=== PATIENT | male | born 1965 | race Caucasian/White ===

== ENCOUNTER → 2021-03-19 15:21 | Outpatient (CLI) | payer OTHER, SELFPAY ==
--- NOTE | 2021-03-19 15:32 | MRI_ITS ---
STUDY: MRI BRAIN WITH AND WITHOUT CONTRAST (ATTENTION INTERNAL AUDITORY CANALS - I.A.C.''s) REASON FOR EXAM: Male, 55 years old. VERTIGO, ASYMMETRIC HEARING LOSS, tinnitus TECHNIQUE: Standardized multiplanar fat and water weighted pulse sequences were obtained. IV 15ml Dotarem was administered for the contrast portion of the examination. COMPARISON: None. FINDINGS: Normal bilateral temporal bones. Normal bilateral internal auditory canals. There is no demonstrated intracanalicular or cisternal vestibular schwannoma (acoustic neuroma). There is no enhancement of the bilateral VIIth or VIIIth cranial nerves. Normal bilateral cochlea, vestibules and semicircular canals. Normal size of the ventricles and extra-axial spaces for the patient''s age. Normal white matter tracts of the supratentorial brain. Normal bilateral basal ganglia. Normal thalami. Normal flow voids within the major intracranial circulation suggesting patency by spin echo criteria. Normal venous enhancement. There is no enhancing intra-axial or extra-axial abnormality. There is no extra-axial fluid accumulation. Normal sella turcica, pituitary gland, infundibular stalk, optic chiasm and hypothalamus. Normal tectal plate and pineal gland. Normal midbrain, jaison and medulla. Normal cerebellum. Normal basal cisterns. No demonstrated orbital abnormality, within the constraints of a routine brain study. Minor mucosal thickening of the ethmoid sinuses and complex mucous retention cyst or polyp in the left sphenoid sinus Normal calvarium and skull base. Normal visualized soft tissue structures. Normal visualized upper cervical spine. MRI/Brain W/WO Contrast IMPRESSION: Normal unenhanced and enhanced MRI of the bilateral internal auditory canals (I.A.C''s). Incidental finding of bilateral ethmoid and left sphenoid sinus disease Electronically Signed: Dwayne Ayala MD at 16:40 EDT , Service support ,
== END ==
PROVIDERS: PCP Family Medicine; Visit Provider Otolaryngology
DX: R42 Dizziness and giddiness (principal); H91.90 Unspecified hearing loss, unspecified ear
CPT/HCPCS: 70553; A9575

== ENCOUNTER → 2024-08-03 | Outpatient (CLI) | payer OTHER, SELFPAY ==
[2024-08-03 17:18] LABS: Absolute Lymphocyte Count 3.61 X10^3/uL (0.83-4.51); Absolute Neutrophil Count 4.6 X10^3/uL (2.0-7.7); Basophil# 0.06 X10^3/uL; Basophil% 0.6 % (0-1); Eosinophil# 0.18 X10^3/uL; Eosinophils% 1.9 % (0-5); Hematocrit 47.1 % (40-54); Hemoglobin 16.2 g/dL (13.0-16.5); Lymphocyte # 3.61 X10^3/ul (0.83-4.51); Lymphocyte % 38.6 % (19-41); Mean Corp Hgb Conc 34.4 g/dL (32-36); Mean Corpuscular Hgb 30.9 pg (27.0-32.0); Mean Corpuscular Volume 89.7 fL (80-94); Mean Platelet Vol. 10.1 fl (6.2-12.0); Monocyte# 0.85 X10^3/uL; Monocyte% 9.1 % (0-10); NRBC Flagged by Analyzer 0 % (0-5); Neutrophil # 4.62 X10^3/uL (2.7-7.7); Neutrophil % 49.5 % (47-70); Platelet Count 228 K/mm3 (150-450); RBC Distribution Width CV 12.9 % (11.6-14.6); RBC Distribution Width SD 42.5 fl (35.1-43.9); Red Blood Count 5.25 M/mm3 (4.6-6.2); White Blood Count 9.4 K/mm3 (4.4-11.0)
[2024-08-03 19:20] LABS: ALB/GLOB Ratio 1.8 RATIO (0.9-2.4); AST(SGOT) 26 U/L (<=37); Alanine Aminotransfer ALT/SGPT 33 U/L (<=46); Albumin, Serum 4.7 g/dL (3.4-4.8); Alkaline Phosphatase 87 U/L (40-129); Anion Gap 11 (5-15); BUN 14 mg/dL (4-19); BUN/Creat Ratio 15.6 RATIO (10-20); Calcium,Total 9.6 mg/dL (7.6-11.0); Carbon Dioxide 24.7 mmol/L (21.0-32.0); Chloride 102 mmol/L (98-108); Creatinine, Serum 0.87 mg/dL (0.70-1.20); EST Glomerular Filtration Rate 98 (>60); Globulin 2.6 g/dL (2.2-4.2); Glucose 104 mg/dL (70-99); PSA,Total - Annual Screen 1.33 ng/mL (0.02-4.00); Potassium 4.5 mmol/L (3.3-5.1); Protein, Total 7.3 g/dL (5.9-8.4); Sodium Level 138 mmol/L (133-145); Total Bilirubin 0.27 mg/dL (0.00-1.30)
[2024-08-03 19:33] LABS: Hepatitis C Antibody Nonreactive (Nonreactive)
== END | disposition home or self-care (01) ==
PROVIDERS: PCP Family Medicine Geriatric Medicine; Visit Provider Family Medicine Geriatric Medicine
DX: E11.65 Type 2 diabetes mellitus with hyperglycemia (principal); E78.5 Hyperlipidemia, unspecified; Z12.5 Encounter for screening for malignant neoplasm of prostate; Z13.89 Encounter for screening for other disorder
CPT/HCPCS: 36415; 80053; 83036; 84153; 84443; 85025; 86803; G0103

== ENCOUNTER → 2024-08-04 | Outpatient (CLI) | payer OTHER, SELFPAY ==
[2024-08-04 20:44] LABS: Microalbumin,Random Urine 37.7 mg/L (NO RANGE EST.); Microalbumin:Creatinine Ratio 202.7 mg/g CRE
== END | disposition home or self-care (01) ==
PROVIDERS: PCP Family Medicine Geriatric Medicine; Referring Provider Family Medicine Geriatric Medicine; Visit Provider Family Medicine Geriatric Medicine
DX: E11.65 Type 2 diabetes mellitus with hyperglycemia (principal); E78.5 Hyperlipidemia, unspecified; Z12.5 Encounter for screening for malignant neoplasm of prostate; Z13.89 Encounter for screening for other disorder
CPT/HCPCS: 82043; 82570

== ENCOUNTER → 2025-02-07 | Outpatient (CLI) | payer OTHER, SELFPAY ==
[2025-02-07 16:28] LABS: Hematocrit 43.8 % (40-54); Hemoglobin 15.3 g/dL (13.0-16.5); Immature Granulocytes Count 0.020 X10^3/uL (0.0-0.0); Mean Corp Hgb Conc 34.9 g/dL (32-36); Mean Corpuscular Volume 88.7 fL (80-94); Mean Platelet Vol. 10.0 fl (6.2-12.0); NRBC Flagged by Analyzer 0 % (0-5); Platelet Count 211 K/mm3 (150-450); RBC Distribution Width CV 12.9 % (11.6-14.6); RBC Distribution Width SD 42.1 fl (35.1-43.9); Red Blood Count 4.94 M/mm3 (4.6-6.2); White Blood Count 9.3 K/mm3 (4.4-11.0)
[2025-02-07 17:26] LABS: Cholesterol 130 mg/dL (<=200); Low Density Lipoprotein Calc. 46 mg/dL; Triglycerides 276 mg/dL; Very Low Density Lipoprotein 55 mg/dL (5-40); cholesterol:hdl ratio screen 4.48
[2025-02-07 17:30] LABS: AST(SGOT) 28 U/L (<=37); Alanine Aminotransfer ALT/SGPT 30 U/L (<=46); Albumin, Serum 4.3 g/dL (3.4-4.8); Alkaline Phosphatase 78 U/L (40-129); Anion Gap 12 (5-15); BUN 15 mg/dL (4-19); BUN/Creat Ratio 13.5 RATIO (10-20); Calcium,Total 8.9 mg/dL (7.6-11.0); Carbon Dioxide 23.8 mmol/L (21.0-32.0); Chloride 107 mmol/L (98-108); Globulin 2.4 g/dL (2.2-4.2); Glucose 96 mg/dL (70-99); Potassium 4.5 mmol/L (3.3-5.1)
[2025-02-08 00:22] LABS: Xtra Tube Kwok EXTRA TUBE
== END | disposition home or self-care (01) ==
LOC: POLAB3 16:19
PROVIDERS: PCP Family Medicine Geriatric Medicine; Visit Provider Family Medicine Geriatric Medicine
DX: E78.5 Hyperlipidemia, unspecified (principal); E11.65 Type 2 diabetes mellitus with hyperglycemia; R53.83 Other fatigue; E03.9 Hypothyroidism, unspecified
CPT/HCPCS: 36415; 80053; 80061; 83036; 84443; 85025

== ENCOUNTER → 2025-04-28 | Outpatient (CLI) | payer OTHER, SELFPAY ==
--- OUTSIDE RECORDS SUMMARY | 2025-04-28 07:21 | XMS RPT_ITS | CCD ---
Author Organization [facility] [employer] Care Team Providers Care Health And Social Care Teacher Name Role Phone SHAHIDA WALKER Unavailable Unavailable SHAHIDA WALKER Unavailable Unavailable Dwayne Mccullough MD Primary Care Provider Dwayne Mccullough MD Primary Care Provider TAMEKA GALVAN DO Attending Unavailable TAMEKA GALVAN DO Primary Care Unavailable TAMEKA GALVAN DO Admitting Unavailable Dwayne Mccullough MD Primary Care Provider Dwayne Mccullough MD Primary Care Provider [phone] Dr. Bairon Knapp MD, Chi Primary Care Provider Dr. Bairon Knapp MD, Chi Attending Provider Dr. Bairon Knapp MD, Chi Referring Provider Ximena Kaba PA-C Unavailable Dwayne Mccullough MD Primary Care Provider Ximena Kaba PA-C Unavailable Kasey Blackwell APRN.CNP Unavailable Ximena Kaba PA-C Unavailable [phone] CAITLIN SIERRA Referring Unavailable DWAYNE MCCULLOUGH Primary Care Unavailable DWAYNE MCCULLOUGH Primary Care Unavailable DWAYNE MCCULLOUGH Primary Care Unavailable DWAYNE MCCULLOUGH Primary Care Unavailable Ra LOPEZ, Dr. Bairon Ruiz Primary Care Physician Dr. Bairon Knapp MD, Chi Attending Physician Bairon Knapp Chi Attending Unavailable Ra, Bairon Chi Primary Care Unavailable Ra, Bairon Chi Primary Care Unavailable RaBairon Chi Attending Unavailable Ra, Bairon Chi Primary Care Unavailable Ra, Bairon Chi Referring Unavailable Ra, Bairon Chi Attending Unavailable Adrian, Anabell Attending Unavailable Bairon Knapp Chi Primary Care Unavailable Bairon Knapp Chi Referring Unavailable Allergies Allergy Classification Reported Allergen(s) Allergy Type Date of Onset Reaction(s) Facility Sulfonamides (antibiotic) (1 source) Sulfonamides (Antibiotic) Drug Allergy 5 Unknown [facility] Work Phone: (20 sources) Sulfonamides (Antibiotic); Translations: [SULFA (SULFONAMIDE ANTIBIOTICS)] Propensity to adverse reactions to drug (disorder) 5 Unknown [facility] Other [place] [facility] (1 source) Sulfonamides (Antibiotic) Drug allergy (disorder) [facility] Repository Medications Current Medications Medication Drug Class(es) Dates Sig (Normalized) Sig (Original) amoxicillin 875 mg / clavulanate 125 mg oral tablet (1 source) Penicillin-class Antibacterial Start: 03-14-2024 End: 03-21-2024 take 1 tablet by mouth twice daily amoxicillin-clav ulanate potassium (AUGMENTIN) 875-125 mg per tablet Take 1 tablet by mouth two times a day for 7 days. 14 tablet 03/14/2024 03/21/2024 Active ascorbic acid 1000 mg oral tablet (8 sources) Vitamin C Start: 08-06-2023 take 1 tablet by mouth once daily Ascorbic Acid (VITAMIN C) 1,000 mg tablet Take 1 tablet by mouth once daily. 08/06/2023 Active Comment on above: Take 1 tablet by ami th once daily. aspirin 81 mg delayed release oral tablet (19 sources) Platelet Aggregation Inhibitor, Nonsteroidal Anti-inflammatory Drug Start: 02-18-2021 take 1 tablet by mouth once daily Comment on above: Take 1 tablet by ami th once daily. cetirizine hydrochloride 10 mg oral capsule (19 sources) Histamine-1 Receptor Antagonist Start: 10-13-2024 take 1 capsule by mouth once daily as needed Start: 02-27-2021 take 1 tablet by ami th once daily cetirizine (ZYRTEC) 10 mg tablet Take 1 tablet by mouth once daily. 30 tablet 02/27/2021 Active Comment on above: Take 1 tablet by ami th once daily. cholecalciferol 0.25 mg oral capsule (8 sources) Vitamin D Start: take 1 capsule by mouth once daily Cholecalciferol, Vitamin D3, 250 mcg (10,000 unit) cap Take 1 capsule by mouth once daily. 08/06/2023 Active Comment on above: Take 1 capsule by mo [facility] once daily. doxycycline monohydrate 100 mg oral capsule (2 sources) Tetracycline-cla ss Drug Start: 4 End: 4 take 1 capsule by mouth twice daily doxycycline monohydrate (MONODOX) 100 mg capsule Indications: Bacterial sinusitis Take 1 capsule by mouth two times a day for 5 days. 10 capsule 03/08/2024 03/13/2024 Active Start: 07-10-2023 End: 07-17-2023 take 1 tablet by mouth twice daily doxycycline (VIBRA-TABS) 100 mg tablet Take 1 tablet by mouth two times a day for 7 days. 14 tablet 0 07/10/2023 07/17/2023 Active Comment on above: Take 1 tablet by ami two times a day for 7 days. mv-mn/folic/lutein/her bal 293 (ALIVE MEN'S 50 PLUS MULTIVIT ORAL) (9 sources) take 1 tablet by mouth once daily mv-mn/folic/lutein/he rbal 293 (ALIVE MEN'S 50 PLUS MULTIVIT ORAL) Take by mouth. Take one tablet daily Active take 1 tablet by ami once daily mv-mn/folic/lutein/herbal 293 (ALIVE MEN 'S 50 PLUS MULTIVIT ORAL) Take by mouth. Take one tablet daily 0 Active Comment on above: Take by mouth. Take one tablet daily nystatin [id number] unt/ml oral suspension (1 source) Polyene Antifungal Start: 2 End: 2 nystatin (MYCOSTATIN) 100,000 unit/mL suspension Indications: Thrush Take 5 mL by mouth four times daily for 14 days. 1tsp swish in mouth for several minutes, then swallow (or expectorate) 4 times daily until gone. 280 mL 0 12/30/2021 01/13/2022 Active Comment on above: Take 5 mL by mouth f our times daily for 14 days. 1tsp swish in mouth for several minutes, then swallow (or expectorate) 4 times daily until gone. omega-3 fatty acids 1,000 mg cap (16 sources) Start: 3 take 2 capsules by mouth twice daily omega-3 fatty acids 1,000 mg cap Take 2 capsules by mouth twice daily. 07/02/2022 Active Start: 07-02-2022 take 2 capsules by m outh twice daily omega-3 fatty acids 1,000 mg cap Take 2 capsules by mouth twice daily. 0 07/02/2022 Active Start: 06-21-2018 take 2 capsules by m outh once daily omega-3 fatty acids 1,000 mg cap Take 2 capsules by mouth once daily. 0 06/21/2018 Active Comment on above: Take 2 capsules by m outh once daily. Take 2 capsules by m outh twice daily. Gruetli Laager-3 Fatty Acids 1,000 mg capsule (1 source) Start: 10-13-2024 take 1 capsule by mouth once daily omeprazole 20 mg delayed release oral capsule (13 sources) Proton Pump Inhibitor Start: 08-06-2023 take 1 capsule by mouth once daily Start: 02-18-2021 take 1 capsule by mo uth once daily before breakfast omeprazole (PRILOSEC) 20 mg capsule Take 1 capsule by mouth daily before breakfast. 1/2 hr before meal. 30 capsule 0 02/18/2021 Active Comment on above: Take 1 capsule by mo uth daily before breakfast. 1/2 hr before meal. perflutren lipid microspheres 1.3 mL in NaCl (PF) 0.9% 10 mL injection (DEFINITY) (4 sources) Start: 1 End: 3 perflutren lipid microspheres 1.3 mL in NaCl (PF) 0.9% 10 mL injection (DEFINITY) predniSONE 20 mg oral tablet (1 source) Start: 2 End: 2 take 2 tablets by mouth once daily predniSONE (DELTASONE) 20 mg tablet Take 2 tablets by mouth once daily for 5 days. 10 tablet 0 12/18/2021 12/23/2021 Active Comment on above: Take 2 tablets by mo uth once daily for 5 days. rosuvastatin calcium 10 mg oral tablet (18 sources) HMG-CoA Reductase Inhibitor Start: 5 take 5 mg by mouth once daily Start: 12-30-2021 take 0.5 tablet by m outh once daily at bedtime rosuvastatin (CRESTOR) 10 mg tablet Indications: Type 2 diabetes mellitus without complication, without long-term current use of insulin (HCC) Take 0.5 tablets by mouth daily at bedtime. 12/30/2021 Active Start: 04-02-2021 End: 12-30-2021 take 1 tablet by mouth once daily at bedtime rosuvastatin (CRESTOR) 10 mg tablet Indications: Type 2 diabetes mellitus without complication, without long-term current use of insulin (HCC) Take 1 tablet by mouth daily at bedtime. 0 04/02/2021 12/30/2021 Discontinued Comment on above: Take 1 tablet by ami th daily at bedtime. Take 0.5 tablets by mouth daily at bedtime. 125 ml sodium chloride 9 mg/ml prefilled syringe (4 sources) Start: 02-18-2021 End: 05-20-2022 sodium chloride 0.9 % (flush) 10 mL (BD POSIFLUSH) vitamin e 268 mg oral capsule (8 sources) Start: 08-06-2023 take 1 capsule by mouth once daily Vitamin E, dl, acetate, (VITAMIN E) 400 unit capsule Take 1 capsule by mouth once daily. 08/06/2023 Active Comment on above: Take 1 capsule by mo [facility] once daily. Completed/Discontinued Medications Medication Drug Class(es) Dates Sig (Normalized) Sig (Original) [id number] 200 actuat albuterol 0.09 mg/actuat metered dose inhaler (1 source) beta2-Adrenergic Agonist Start: 10-06-2024 End: 10-13-2024 Albuterol Sulfate (Ventolin Hfa) 90 mcg/actuation HFA aerosol inhaler Discontinued 2 NMA INHALATION Q4H as needed October 06, 2024 12:00am October 13, 2024 10:47am cyclobenzaprine hydrochloride 10 mg oral tablet (1 source) Muscle Relaxant Start: 10-06-2024 End: 10-13-2024 take 1 tablet by mouth at bedtime Cyclobenzaprine 10 mg tablet Discontinued 10 mg PO BEDTIME October 06, 2024 12:00am October 13, 2024 10:47am diphenhydrAMINE hydrochloride 25 mg oral capsule (8 sources) Histamine-1 Receptor Antagonist Start: 07-01-2021 End: 08-05-2023 take 1 capsule by mouth once daily at bedtime diphenhydrAMINE (BENADRYL) 25 mg capsule Take 1 capsule by mouth daily at bedtime. 0 07/01/2021 08/05/2023 Discontinued Comment on above: Take 1 capsule by va ut daily at bedtime. fluticasone propionate 0.05 mg/actuat metered dose nasal spray (4 sources) Corticosteroid Start: 02-27-2021 End: 12-30-2021 take 2 spray(s) by mouth once daily fluticasone (FLONASE) 50 mcg/actuation nasal spray Use 2 Sprays in each nostril once daily. Rinse mouth after use. 10 mL 0 02/27/2021 12/30/2021 Discontinued Comment on above: Use 2 Sprays in each nostril once daily. Rinse mouth after use. Fluticasone-Umeclidi n-Vilanter (1 source) Anticholinergic, Corticosteroid, beta2-Adrenergic Agonist Start: 10-06-2024 End: 10-13-2024 Fluticasone-Umeclid in-Vilanter (Trelegy Ellipta) 100-62.5-25 mcg blister with device Discontinued 1 NMA INHALATION daily October 06, 2024 12:00am October 13, 2024 10:47am guaiFENesin (1 source) Start: 10-06-2024 End: 10-13-2024 guaifenesin (Mucinex) Discontinued 0.5 {tbl} PO DAILY October 06, 2024 12:00am October 13, 2024 10:47am ibuprofen 200 mg oral tablet (1 source) Nonsteroidal Anti-inflammatory Drug Start: 10-06-2024 End: 10-13-2024 take 1 tablet by mouth every six hours as needed Ibuprofen 200 mg tablet Discontinued 200 mg PO EVERY 6 HOURS as needed October 06, 2024 12:00am October 13, 2024 10:47am 200 actuat ipratropium bromide 0.017 mg/actuat metered dose inhaler (1 source) Anticholinergic Start: 10-06-2024 End: 10-13-2024 Ipratropium Alder (Atrovent Hfa) 17 mcg/actuation HFA aerosol inhaler Discontinued 2 NMA INHALATION EVERY 6 HOURS as needed October 06, 2024 12:00am October 13, 2024 10:48am lamoTRIgine 25 mg oral tablet (1 source) Mood Stabilizer, Anti-epileptic Agent Start: 10-06-2024 End: 10-13-2024 take 1 tablet by mouth once daily Lamotrigine 25 mg tablet Discontinued 25 mg PO daily October 06, 2024 12:00am October 13, 2024 10:48am meclizine hydrochloride 25 mg oral tablet (5 sources) Antiemetic Start: 10-06-2024 End: 10-13-2024 take 1 tablet by mouth once daily as needed Meclizine 25 mg tablet Discontinued 25 mg PO daily as needed October 06, 2024 12:00am October 13, 2024 10:48am Start: 02-27-2021 End: 12-30-2021 take 1 tablet by mouth every six hours as needed meclizine (ANTIVERT) 12.5 mg tab Take 1 tablet by mouth every 6 hours as needed (dizziness). 12 tablet 0 02/27/2021 12/30/2021 Discontinued Comment on above: Take 1 tablet by ami th every 6 hours as needed (dizziness). ondansetron 4 mg disintegrating oral tablet (1 source) Serotonin-3 Receptor Antagonist Start: 10-07-19 End: 10-14-19 take 1 tablet by mouth every six hours Ondansetron 4 mg tablet,disintegratin g Discontinued 4 mg PO EVERY 6 HOURS October 06, 2024 12:00am October 13, 2024 10:48am Problems Active Problems Problem Classification Problem Date Documented Date Episodic/Chronic Diabetes mellitus with complications (3 sources) Hyperglycemia due to type 2 diabetes mellitus; Translations: [Type 2 diabetes mellitus with hyperglycemia] Onset: 08-12-2024 10-13-2024 Chronic Diabetes mellitus without complication (20 sources) Type 2 diabetes mellitus without complication; Translations: [Type 2 diabetes mellitus without complications] Onset: 02-18-2021 02-18-2021 Chronic Diabetes mellitus without complication (5 sources) Hyperglycemia; Translations: [Impaired fasting glucose] Onset: 05-24-2015 02-06-2017 Episodic Disorders of lipid metabolism (20 sources) Mixed hyperlipidemia; Translations: [Mixed hyperlipidemia] Onset: 05-22-2015 05-22-2015 Chronic Esophageal disorders (20 sources) Gastroesophageal reflux disease without esophagitis; Translations: [Gastro-esophageal reflux disease without esophagitis] Onset: 05-22-2015 05-22-2015 Chronic Essential hypertension (1 source) Essential (primary) hypertension; Translations: [Essential (primary) hypertension] Onset: 10-17-2024 Chronic Mycoses (1 source) Candidiasis of mouth; Translations: [Candidal stomatitis] Episodic Nutritional deficiencies (1 source) Vitamin D deficiency; Translations: [Vitamin D deficiency, unspecified] 10-13-2024 Chronic Osteoarthritis (18 sources) Osteoarthritis of finger joint; Translations: [Primary osteoarthritis, unspecified hand] Onset: 05-22-2015 05-13-2021 Chronic Other connective tissue disease (2 sources) Pain of left hand; Translations: [Pain in left hand] Episodic Other injuries and conditions due to external causes (3 sources) Foreign body in cornea, left eye, initial encounter; Translations: [Foreign body in cornea, left eye, initial encounter] Onset: 12-14-2021 Episodic Other lower respiratory disease (1 source) Lower respiratory tract infection; Translations: [Unspecified acute lower respiratory infection] 07-10-2023 Episodic Other lower respiratory disease (2 sources) Cough; Translations: [Subacute cough] 03-14-2024 Episodic Other male genital disorders (19 sources) Male erectile dysfunction, unspecified; Translations: [Impotence of organic origin] Onset: 09-18-2016 02-06-2017 Chronic Other skin disorders (1 source) Foot callus; Translations: [Corns and callosities] 08-05-2023 Episodic Other upper respiratory disease (18 sources) Allergic rhinitis due to pollen; Translations: [Allergic rhinitis due to pollen] Onset: 05-22-2015 05-22-2015 Chronic Other upper respiratory disease (1 source) Allergic rhinitis; Translations: [Allergic rhinitis, unspecified] 10-13-2024 Chronic Other upper respiratory infections (2 sources) Bacterial sinusitis; Translations: [Chronic sinusitis, unspecified] 03-08-2024 Chronic Poisoning by nonmedicinal substances (1 source) Bee sting; Translations: [Toxic effect of venom of bees, undetermined, sequela] Episodic Residual codes; unclassified (1 source) Sleep apnea; Translations: [Sleep apnea, unspecified] 10-13-2024 Chronic Residual codes; unclassified (19 sources) FH: premature coronary heart disease; Translations: [Family history of ischemic heart disease and other diseases of the circulatory system] Onset: 08-07-2017 08-07-2017 Episodic Residual codes; unclassified (10 sources) FH: Myocardial infarction; Translations: [Family history of ischemic heart disease and other diseases of the circulatory system] Onset: 05-22-2015 Resolved: 05-01-2017 05-13-2021 Episodic Residual codes; unclassified (1 source) Tobacco user; Translations: [Tobacco use] 10-13-2024 Episodic Substance-related disorders (20 sources) Smoker; Translations: [Nicotine dependence, unspecified, uncomplicated] Onset: 05-22-2015 05-13-2021 Chronic Thyroid disorders (17 sources) Subclinical hypothyroidism; Translations: [Other specified hypothyroidism] Onset: 12-30-2021 Chronic Unclassified (1 source) Subacute cough; Translations: [Subacute cough] Onset: 03-14-2024 Past or Other Problems Problem Classification Problem Date Documented Da te Episodic/Chronic Abdominal hernia (1 source) Bilateral inguinal hernia, without obstruction or gangrene, recurrent; Translations: [Bilateral inguinal hernia, without obstruction or gangrene, recurrent] Onset: 05-13-2017 Episodic Complications of surgical procedures or medical care (18 sources) Expected difficult tracheal intubation; Translations: [Failed or difficult intubation, initial encounter] Onset: 05-13-2017 05-13-2017 Episodic Heart valve disorders (1 source) Cardiac murmur, unspecified; Translations: [Cardiac murmur, unspecified] Onset: 10-17-2024 Episodic Immunizations and screening for infectious disease (3 sources) Vaccination needed; Translations: [Encounter for immunization] Onset: 11-09-2023 08-05-2023 Episodic Other hereditary and degenerative nervous system conditions (9 sources) Restless legs; Translations: [Restless legs syndrome] Onset: 05-28-2007 Resolved: 05-01-2017 05-01-2017 Chronic Other infections; including parasitic (12 sources) Personal history of other infectious and parasitic diseases; Translations: [History of 2019 novel coronavirus disease (COVID-19)] Onset: 07-02-2022 07-02-2022 Episodic Other inflammatory condition of skin (9 sources) Pruritus of skin; Translations: [Pruritus, unspecified] Onset: 05-28-2007 Resolved: 05-01-2017 05-01-2017 Episodic Other screening for suspected conditions (not mental disorders or infectious disease) (20 sources) Patient encounter status; Translations: [Encounter for screening for malignant neoplasm of colon] Onset: 02-06-2017 02-06-2017 Episodic Spondylosis; intervertebral disc disorders; other back problems (19 sources) Neck pain; Translations: [Cervicalgia] Onset: 05-07-2021 Episodic Results Test Name Value Interpretation Reference Range Facility Absolute lymphocyte countOrd ered By: Bairon Ra on 02-07-2025 Lymphocytes Auto (Unsp spec) [#/Vol] 3.50 10*3/uL 0.83-4.51 [facility] Absolute neutrophil countOrd ered By: Bairon Ra on 02-07-2025 Neutrophils (Bld) [#/Vol] 4.6 10*3/uL 2.0-7.7 [facility] Anion gap in Serum or Plasma Ordered By: Bairon Knapp on 02-07-2025 Anion gap [Moles/Vol] 12 mmol/L 5- [facility] Automated lymphocyte count a s percentage of total leukocytesOrdered By: Bairon Knapp on 02-07-2025 Lymphocytes/100 WBC Auto (Unsp spec) 37.5 % - [facility] BUN/creatinine ratioOrdered By: [facility] on 02-07-2025 Urea nitrogen/Creatinine [Mass ratio] 13.5 mg/mg 10- [facility] Basophil percentageOrdered B y: Bairon [place] on 02-07-2025 Basophils/100 WBC (Bld) 0.5 % 0-1 [facility] Bilirubin, totalOrdered By: Bairon Knapp on 02-07-2025 Bilirubin [Mass/Vol] 0.18 mg/dL 0.00-1.30 [facility] CBC W/Diff, Automatedon 01-17 Absolute Lymph 3.50 X10 3/uL Normal 0.83-4.51 [facility] Comment on above: Performed By: #### L [id number], L500.4100, L501.9985, L500.4050, L100.0100 #### [facility] [address] [place], [place], [id number] Absolute Neut 4.6 X10 3/uL Normal 2.0-7.7 [facility] Comment on above: Performed By: #### L [id number], L500.4100, L501.9985, L500.4050, L100.0100 #### [facility] [address] [place], [address] Basophils/100 WBC (Bld) 0.5 % Normal 0-1 [facility] Comment on above: Performed By: #### L [id number], L500.4100, L501.9985, L500.4050, L100.0100 #### [facility] [address] [place], [address] Eosinophils/100 WBC (Bld) 2.5 % Normal 0-5 [facility] Comment on above: Performed By: #### L [id number], L500.4100, L501.9985, L500.4050, L100.0100 #### [facility] [address] [place], [address] Erythrocyte distribution width (RBC) [Ratio] 12.9 % Normal 11.6-14.6 [facility] Comment on above: Performed By: #### L [id number], L500.4100, L501.9985, L500.4050, L100.0100 #### [facility] [address] [place], [address] Hematocrit (Bld) [Volume fraction] 43.8 % Normal 40-54 [facility] Comment on above: Performed By: #### L [id number], L500.4100, L501.9985, L500.4050, L100.0100 #### [facility] [address] [place], [address] Hemoglobin (Bld) [Mass/Vol] 15.3 g/dL Normal 13.0-16.5 [facility] Comment on above: Performed By: #### L [id number], L500.4100, L501.9985, L500.4050, L100.0100 #### [facility] [address] [place], [address] IG% 0.200 Normal 0.0-0.9 [facility] Comment on above: Result Comment: IG% - Immature Granulocytes (promyelocytes, myelocytes and metamyelocytes) > 1% indicates that a LEFT SHIFT is Present. Performed By: #### L [id number], L500.4100, L501.9985, L500.4050, L100.0100 #### [facility] [address] [place], [address] Lymphocytes/100 WBC (Bld) 37.5 % Normal 19-41 [facility] Comment on above: Performed By: #### L [id number], L500.4100, L501.9985, L500.4050, L100.0100 #### [facility] [address] [place], [address] MCH (RBC) [Entitic mass] 31.0 pg Normal 27.0-32.0 [facility] Comment on above: Performed By: #### L [id number], L500.4100, L501.9985, L500.4050, L100.0100 #### [facility] [address] [place], [address] MCHC (RBC) [Mass/Vol] 34.9 g/dL Normal 32-36 [facility] Comment on above: Performed By: #### L [id number], L500.4100, L501.9985, L500.4050, L100.0100 #### [facility] [address] [place], [address] MCV (RBC) [Entitic vol] 88.7 fL Normal 80-94 [facility] Comment on above: Performed By: #### L [id number], L500.4100, L501.9985, L500.4050, L100.0100 #### [facility] [address] [place], [address] Monocytes/100 WBC (Bld) 10.5 % High 0-10 [facility] Comment on above: Performed By: #### L [id number], L500.4100, L501.9985, L500.4050, L100.0100 #### [facility] [address] [place], [address] Neutrophils/100 WBC (Bld) 48.8 % Normal 47-70 [facility] Comment on above: Performed By: #### L [id number], L500.4100, L501.9985, L500.4050, L100.0100 #### [facility] [address] [place], [address] Nucleated RBC (Bld) [#/Vol] 0 10*3/uL Normal 0-5 [facility] Comment on above: Performed By: #### L [id number], L500.4100, L501.9985, L500.4050, L100.0100 #### [facility] [address] [place], [address] Platelet mean volume (Bld) [Entitic vol] 10.0 fL Normal 6.2-12.0 [facility] Comment on above: Performed By: #### L [id number], L500.4100, L501.9985, L500.4050, L100.0100 #### [facility] [address] [place], [address] Platelets (Bld) [#/Vol] 211 10*3/uL Normal 150-450 [facility] Comment on above: Performed By: #### L [id number], L500.4100, L501.9985, L500.4050, L100.0100 #### [facility] [address] [place], [address] RBC (Bld) [#/Vol] 4.94 10*6/uL Normal 4.6-6.2 [facility] Comment on above: Performed By: #### L [id number], L500.4100, L501.9985, L500.4050, L100.0100 #### [facility] [address] [place], [address] RDW SD 42.1 fl Normal 35.1-43.9 [facility] Comment on above: Performed By: #### L [id number], L500.4100, L501.9985, L500.4050, L100.0100 #### [facility] [address] [place], [place], [address] WBC (Bld) [#/Vol] 9.3 10*3/uL Normal 4.4-11.0 [facility] Comment on above: Performed By: #### L [id number], L500.4100, L501.9985, L500.4050, L100.0100 #### [facility] [address] [place], [address] Calculated very low density lipoprotein (VLDL) cholesterol measurementOrdered By: Bairon Knapp on 02-07-2025 Calculated very low density lipoprotein (VLDL) cholesterol measurement 55 mg/dL High 5-40 [facility] Carbon dioxide, total [Moles /volume] in Central venous bloodOrdered By: Bairon Knapp on 02-07-2025 CO2 [Moles/Vol] 23.8 mmol/L 21.0-32.0 [facility] Chloride assayOrdered By: Vik Knapp on 02-07-2025 Chloride [Moles/Vol] 107 mmol/L 98-108 [facility] Comprehensive Metabolic Prof ilon 02-07-2025 Albumin [Mass/Vol] 4.3 g/dL Normal 3.4-4.8 [facility] Comment on above: Performed By: #### L [id number], L500.4100, L501.9985, L500.4050, L100.0100 #### [facility] Laboratory [address] [place], [address] Albumin/Globulin [Mass ratio] 1.8 {ratio} Normal 0.9-2.4 [facility] Comment on above: Performed By: #### L 501.9520, L500.4100, L501.9985, L500.4050, L100.0100 #### [facility] [address] [place], [address] ALK PHOS 78 U/L Normal 40-129 [facility] Comment on above: Performed By: #### L 501.9520, L500.4100, L501.9985, L500.4050, L100.0100 #### [facility] [address] [place], [address] ALT [Catalytic activity/Vol] 30 U/L Normal <=46 [facility] Comment on above: Performed By: #### L 501.9520, L500.4100, L501.9985, L500.4050, L100.0100 #### [facility] [address] [place], [address] AST [Catalytic activity/Vol] 28 U/L Normal <=37 [facility] Comment on above: Result Comment: Hemo lysis present, Results??could be affected. ?? Performed By: #### L 501.9520, L500.4100, L501.9985, L500.4050, L100.0100 #### [facility] [address] [place], [address] Bilirubin [Mass/Vol] 0.18 mg/dL Normal 0.00-1.30 [facility] Comment on above: Performed By: #### L 501.9520, L500.4100, L501.9985, L500.4050, L100.0100 #### [facility] [address] [place], [address] BUN/CRE 13.5 RATIO Normal 10-20 [facility] Comment on above: Performed By: #### L 501.9520, L500.4100, L501.9985, L500.4050, L100.0100 #### [facility] [address] [place], [address] Calcium [Mass/Vol] 8.9 mg/dL Normal 7.6-11.0 [facility] Comment on above: Performed By: #### L 501.9520, L500.4100, L501.9985, L500.4050, L100.0100 #### [facility] [address] [place], [address] Chloride [Moles/Vol] 107 mmol/L Normal 98-108 [facility] Comment on above: Performed By: #### L 501.9520, L500.4100, L501.9985, L500.4050, L100.0100 #### [facility] [address] [place], [address] CO2 [Moles/Vol] 23.8 mmol/L Normal 21.0-32.0 [facility] Comment on above: Performed By: #### L 501.9520, L500.4100, L501.9985, L500.4050, L100.0100 #### [facility] [address] [place], [address] Creatinine [Mass/Vol] 1.14 mg/dL Normal 0.70-1.20 [facility] Comment on above: Performed By: #### L 501.9520, L500.4100, L501.9985, L500.4050, L100.0100 #### [facility] [address] [place], [address] GAP 12 Normal 5-15 [facility] Comment on above: Performed By: #### L 501.9520, L500.4100, L501.9985, L500.4050, L100.0100 #### [facility] [address] [place], [address] GFR/1.73 sq M.predicted among non-blacks MDRD (S/P/Bld) [Vol rate/Area] 73 mL/min/{1.73_m2} Normal >60 [facility] Comment on above: Result Comment: mL/m in/1.73m2 CKD-EPI Creatinine Equation (2020) Performed By: #### L 501.9520, L500.4100, L501.9985, L500.4050, L100.0100 #### [facility] [address] [place], [address] Globulin (S) [Mass/Vol] 2.4 g/dL Normal 2.2-4.2 [facility] Comment on above: Performed By: #### L 501.9520, L500.4100, L501.9985, L500.4050, L100.0100 #### [facility] [address] [place], [address] Glucose [Mass/Vol] 96 mg/dL Normal 70-99 [facility] Comment on above: Performed By: #### L 501.9520, L500.4100, L501.9985, L500.4050, L100.0100 #### [facility] [address] [place], [address] Potassium [Moles/Vol] 4.5 mmol/L Normal 3.3-5.1 [facility] Comment on above: Result Comment: Hemo lysis present, Results??could be affected. ?? Performed By: #### L 501.9520, L500.4100, L501.9985, L500.4050, L100.0100 #### [facility] [address] [place], [address] Sodium [Moles/Vol] 142 mmol/L Normal 133-145 [facility] Comment on above: Performed By: #### L 501.9520, L500.4100, L501.9985, L500.4050, L100.0100 #### [facility] [address] [place], [address] T PROT 6.7 g/dL Normal 5.9-8.4 [facility] Comment on above: Performed By: #### L 501.9520, L500.4100, L501.9985, L500.4050, L100.0100 #### [facility] [address] [place], [address] Urea nitrogen [Mass/Vol] 15 mg/dL Normal 4-19 [facility] Comment on above: Performed By: #### L 501.9520, L500.4100, L501.9985, L500.4050, L100.0100 #### [facility] [address] [place], [address] Eosinophil percentageOrdered By: Bairon Knapp on 02-07-2025 Eosinophils/100 WBC (Bld) 2.5 % 0-5 [facility] Erythrocyte distribution wid th ratioOrdered By: [facility] Erythrocyte distribution width (RBC) [Ratio] 12.9 % 11.6-14.6 [facility] Erythrocyte distribution wid th standard deviationOrdered By: Bairon Knapp on 02-07-2025 Erythrocyte distribution width (RBC) [Ratio] 42.1 fl 35.1-43.9 [facility] Glomerular filtration rate ( GFR) estimation/1.73 sq m using serum, plasma, or whole bOrdered By: Bairon Knapp on 02-07-2025 GFR/1.73 sq M.predicted among non-blacks MDRD (S/P/Bld) [Vol rate/Area] 73 mL/min/{1.73_m2} >60 [facility] Comment on above: mL/min/1.73m2 CKD-EP I Creatinine Equation (2020) Hematocrit Auto (Bld) [Volum e fraction]Ordered By: Bairon Knapp on 02-07-2025 Hematocrit (Bld) [Volume fraction] 43.8 % 40-54 [facility] Hemoglobin A1con 02-07-2025 HbA1c (Bld) [Mass fraction] 6.9 % High <=5.6 [facility] Comment on above: Result Comment: Norm al < 5.7 % Prediabetic 5.7 - 6.4 % Diabetic >or= 6.5 % Please note range changes. Performed By: #### L 501.9520, L500.4100, L501.9985, L500.4050, L100.0100 #### [facility] [address] [place], [place], [address] Hemoglobin A1c percentageOrd ered By: Bairon Knapp on 02-07-2025 HbA1c (Bld) [Mass fraction] 6.9 % High <5.7 [facility] Comment on above: Normal < 5.7 % Predi abetic 5.7 - 6.4 % Diabetic >or= 6.5 % Please note range changes. Hemoglobin measurementOrdere d By: Bairon Knapp on 02-07-2025 Hemoglobin (Bld) [Mass/Vol] 15.3 g/dL 13.0-16.5 [facility] Immature granulocytes/100 WB C Auto (Bld)Ordered By: Bairon Knapp on 02-07-2025 Immature granulocytes/100 WBC (Bld) 0.200 % 0.0-0.9 [facility] Comment on above: IG% - Immature Granu locytes (promyelocytes, myelocytes and metamyelocytes) > 1% indicates that a LEFT SHIFT is Present. LDL calc ser/plasOrdered By: Bairon Knapp on 02-07-2025 Cholesterol in LDL [Mass/Vol] 46 mg/dL [facility] Comment on above: Tffwjqdkkj=955-957 m g/dL & Higher Qbkt=276 mg/dL or greaterFriedwald Equation for LDL-C Laboratory - Chemistry and C hemistry - challengeOrdered By: Bairon Knapp on 02-07-2025 AST [Catalytic activity/Vol] 28 U/L <38 [facility] Comment on above: Hemolysis present, R esults could be affected. Lipid Profileon 02-07-2025 CHOL:HDL 4.48 Normal [facility] Comment on above: Performed By: #### L 501.9520, L500.4100, L501.9985, L500.4050, L100.0100 #### [facility] [address] [place], [address] Cholesterol [Mass/Vol] 130 mg/dL Normal <=200 [facility] Comment on above: Result Comment: Chol esterol level, Desirable <200 mg/dL Borderline high cholesterol 200-239 mg/dL High cholesterol >=240 mg/dL Recommendations of the NCEP Adult Treatment Panel for the following risk-cutoff thresholds for the [place] population. Performed By: #### L 501.9520, L500.4100, L501.9985, L500.4050, L100.0100 #### [facility] [address] [place], [address] Cholesterol in HDL [Mass/Vol] 29 mg/dL Low [facility] Comment on above: Result Comment: Angelica onal Cholesterol Education Program (NCEP) guidelines: <40 mg/dL: Low HDL-cholesterol (major risk factor for CHD) >= 60 mg/dL: High HDL-cholesterol (negative risk factor for CHD) HDL-cholesterol is affected by a number of factors, e.g. smoking, exercise, hormones, sex and age. Performed By: #### L 501.9520, L500.4100, L501.9985, L500.4050, L100.0100 #### [facility] [address] [place], [address] Cholesterol in LDL [Mass/Vol] 46 mg/dL Normal [facility] Comment on above: Result Comment: Bord ukaqit=936-442 mg/dL Higher Tycn=326 mg/dL or greater Friedwald Equation for LDL-C Performed By: #### L 501.9520, L500.4100, L501.9985, L500.4050, L100.0100 #### [facility] [address] [place], [address] Cholesterol in VLDL [Mass/Vol] 55 mg/dL High 5-40 [facility] Comment on above: Performed By: #### L 501.9520, L500.4100, L501.9985, L500.4050, L100.0100 #### [facility] [address] [facility] [place], [address] Triglyceride [Mass/Vol] 276 mg/dL High [facility] Comment on above: Result Comment: The drugs N-Acetylcysteine and Metamizole may falsely depress this assay. Normal range: <150 mg/dL Borderline High: 150-199 mg/dL High: 200-499 mg/dL Very High: >500 mg/dL Performed By: #### L 501.9520, L500.4100, L501.9985, L500.4050, L100.0100 #### [facility] [address] [place], [address] MCV (mean corpuscular volume ) determinationOrdered By: Bairon Knapp on 02-07-2025 MCV (RBC) [Entitic vol] 88.7 fL 80-94 [facility] Mean corpuscular hemoglobin (MCH) determinationOrdered By: Bairon Knapp on 02-07-2025 MCH (RBC) [Entitic mass] 31.0 pg 27.0-32.0 [facility] Mean corpuscular hemoglobin concentration (MCHC) determinationOrdered By: Bairon Knapp on 02-07-2025 MCHC (RBC) [Mass/Vol] 34.9 g/dL 32-36 [facility] Mean platelet volume determi nationOrdered By: Bairon Knapp on 02-07-2025 Platelet mean volume (Bld) [Entitic vol] 10.0 fL 6.2-12.0 [facility] Monocyte percentageOrdered B y: Bairon Knapp on 02-07-2025 Monocytes/100 WBC (Bld) 10.5 % High 0-10 [facility] Neutrophil percentageOrdered By: Bairon Knapp on 02-07-2025 Neutrophils/100 WBC (Bld) 48.8 % 47-70 [facility] Nucleated red blood cell per centageOrdered By: Bairon Knapp on 02-07-2025 Nucleated RBC/100 WBC (Bld) [Ratio] 0 % 0-5 [facility] Platelet countOrdered By: Vik Knapp on 02-07-2025 Platelets (Bld) [#/Vol] 211 10*3/uL 150-450 [facility] Potassium measurement (mass/ volume)Ordered By: Bairon Knapp on 02-07-2025 Potassium (Unsp spec) [Mass/Vol] 4.5 mmol/L 3.3-5.1 [facility] Comment on above: Hemolysis present, R esults could be affected. RBC Auto (Bld) [#/Vol]Ordere d By: Bairon Knapp on 02-07-2025 RBC (Bld) [#/Vol] 4.94 10*6/uL 4.6-6.2 [facility] Screening total cholesterol/ high density lipoprotein (HDL) cholesterol ratioOrdered By: Bairon Knapp on 02-07-2025 Cholesterol.total/Chol esterol in HDL [Mass ratio] 4.48 {ratio} [facility] Serum creatinine measurement (mass/volume)Ordered By: Bairon Knapp on 02-07-2025 Creatinine [Mass/Vol] 1.14 mg/dL 0.70-1.20 [facility] Serum globulin measurementOr dered By: Bairon Knapp 02-07-2025 Globulin (S) [Mass/Vol] 2.4 g/dL 2.2-4.2 [facility] Serum glucose measurement (m ass/volume)Ordered By: Bairon Knapp on 02-07-2025 Glucose [Mass/Vol] 96 mg/dL 70-99 [facility] Serum or plasma alanine gomez otransferase (ALT) measurementOrdered By: Bairon Kanpp 02-07-2025 ALT [Catalytic activity/Vol] 30 U/L <47 [facility] Serum or plasma albumin nahomy urement (mass/volume)Ordered By: Bairon Knapp on 02-07-2025 Albumin [Mass/Vol] 4.3 g/dL 3.4-4.8 [facility] Serum or plasma albumin/glob ulin mass ratioOrdered By: Bairon Knapp on 02-07-2025 Albumin/Globulin [Mass ratio] 1.8 {ratio} 0.9-2.4 [facility] Serum or plasma alkaline paula sphatase measurementOrdered By: Bairon Knapp 02-07-2025 ALP [Catalytic activity/Vol] 78 U/L 40-129 [facility] Serum or plasma calcium nahomy urement (mass/volume)Ordered By: Bairon Knapp 02-07-2025 Calcium [Mass/Vol] 8.9 mg/dL 7.6-11.0 [facility] Serum or plasma cholesterol in HDL measurement (mass/volume)Ordered By: Bairon Knapp on 02-07-2025 Cholesterol in HDL [Mass/Vol] 29 mg/dL Low >40 [facility] Comment on above: National Cholesterol Education Program (NCEP) guidelines:<40 mg/dL: Low HDL-cholesterol (major risk factor for CHD)>= 60 mg/dL: High HDL-cholesterol (negative risk factor for CHD)HDL-cholesterol is affected by a number of factors, e.g. smoking, exercise, hormones, sex and age. Serum or plasma cholesterol measurement (mass/volume)Ordered By: Bairon Knapp on 02-07-2025 Cholesterol [Mass/Vol] 130 mg/dL <201 [facility] Comment on above: Cholesterol level, D esirable <200 mg/dLBorderline high cholesterol 200-239 mg/dLHigh cholesterol >=240 mg/dLRecommendations of the NCEP Adult Treatment Panel for the following risk-cutoff thresholds for the [place] population. Serum or plasma urea nitroge n measurement (mass/volume)Ordered By: Bairon Knapp 02-07-2025 Urea nitrogen [Mass/Vol] 15 mg/dL 4-19 [facility] Sodium levelOrdered By: Bairon Knapp 02-07-2025 Sodium [Moles/Vol] 142 mmol/L 133-145 [facility] TSH DL <= 0.005 mIU/L QnOrde red By: Bairon Knapp on 02-07-2025 TSH Qn 2.820 uIU/mL 0.300-4.200 [facility] Thyroid Stim Hormone (TSH)on 02-07-2025 TSH 2.820 uIU/mL Normal 0.300-4.200 [facility] Comment on above: Performed By: #### L 501.9520, L500.4050, L501.9985, L501.9910, L3890.6301, L100.0100 #### [facility] [address] [place], [place], [address] Total proteinOrdered By: Bairon Knapp on 02-07-2025 Protein [Mass/Vol] 6.7 g/dL 5.9-8.4 [facility] Triglycerides measurementOrd ered By: Bairon Knapp on 02-07-2025 Triglyceride [Mass/Vol] 276 mg/dL High <199 [facility] Comment on above: The drugs N-Acetylcy steine and Metamizole may falsely depress this assay. Normal range: <150 mg/dLBorderline High: 150-199 mg/dLHigh: 200-499 mg/dLVery High: >500 mg/dL White blood cell (WBC) count Ordered By: Bairon Knapp on 02-07-2025 WBC (Bld) [#/Vol] 9.3 10*3/uL 4.4-11.0 [facility] Microalb:Creat Ratio,Random URon 11-03-2024 MALB:CREAT 20.3 mg/g CRE Normal [facility] Comment on above: Result Comment: AMENDED REPORT 11/03/24 0740 MALB:CREAT previously reported as: 202.7 mg/g CRE Performed By: #### L 501.9520, L500.4050, L501.9985, L501.9910, L3890.6301, L100.0100 #### [facility] [address] [place], [place], [address] Albumin DL <= 20 mg/L (U) [M ass/Vol]Ordered By: Bairon Knapp on 08-04-2024 Urine Random Microalbumin 37.7 mg/L NO RANGE EST. [facility] Creatinine Unsp time (U) [Ma ss/Vol]Ordered By: Bairon Knapp on 08-04-2024 Creatinine (U) [Mass/Vol] 186.00 mg/dL 39.00-259.00 [facility] Microalbumin/creat ratio urO rdered By: Bairon Knapp on 08-04-2024 Urine Microalbumin/Creatinin e Ratio 202.7 mg/g CRE [facility] Absolute neutrophil countOrd ered By: Bairon Knapp on 08-03-2024 Neutrophils (Bld) [#/Vol] 4.6 10*3/uL 2.0-7.7 [facility] Anion gap in Serum or Plasma Ordered By: Bairon Knapp on 08-03-2024 Anion gap [Moles/Vol] 11 mmol/L 09-29 [facility] BUN/creatinine ratioOrdered By: Bairon Knapp on 08-03-2024 Urea nitrogen/Creatinine [Mass ratio] 15.6 mg/mg 03-06 [facility] Basophil percentageOrdered B y: Bairon Knapp on 08-03-2024 Basophils/100 WBC (Bld) 0.6 % 0-1 [facility] Bilirubin, totalOrdered By: Bairon Knapp on 08-03-2024 Bilirubin [Mass/Vol] 0.27 mg/dL 0.00-1.30 [facility] CBC W/Diff, Automatedon 07-16 Absolute Lymph 3.61 X10 3/uL Normal 0.83-4.51 [facility] Comment on above: Performed By: #### L 501.9520, L500.4050, L501.9985, L501.9910, L3890.6301, L100.0100 #### [facility] [address] [place], [address] Absolute Neut 4.6 X10 3/uL Normal 2.0-7.7 [facility] Comment on above: Performed By: #### L 501.9520, L500.4050, L501.9985, L501.9910, L3890.6301, L100.0100 #### [facility] [address] [place], [address] Basophils/100 WBC (Bld) 0.6 % Normal 0-1 [facility] Comment on above: Performed By: #### L 501.9520, L500.4050, L501.9985, L501.9910, L3890.6301, L100.0100 #### [facility] [address] [place], [address] Eosinophils/100 WBC (Bld) 1.9 % Normal 0-5 [facility] Comment on above: Performed By: #### L 501.9520, L500.4050, L501.9985, L501.9910, L3890.6301, L100.0100 #### [facility] [address] [place], [address] Erythrocyte distribution width (RBC) [Ratio] 12.9 % Normal 11.6-14.6 [facility] Comment on above: Performed By: #### L 501.9520, L500.4050, L501.9985, L501.9910, L3890.6301, L100.0100 #### [facility] [address] [place], [address] Hematocrit (Bld) [Volume fraction] 47.1 % Normal 40-54 [facility] Comment on above: Performed By: #### L 501.9520, L500.4050, L501.9985, L501.9910, L3890.6301, L100.0100 #### [facility] [address] [place], [address] Hemoglobin (Bld) [Mass/Vol] 16.2 g/dL Normal 13.0-16.5 [facility] Comment on above: Performed By: #### L 501.9520, L500.4050, L501.9985, L501.9910, L3890.6301, L100.0100 #### [facility] [address] [place], [address] IG% 0.300 Normal 0.0-0.9 [facility] Comment on above: Result Comment: IG% - Immature Granulocytes (promyelocytes, myelocytes and metamyelocytes) > 1% indicates that a LEFT SHIFT is Present. Performed By: #### L 501.9520, L500.4050, L501.9985, L501.9910, L3890.6301, L100.0100 #### [facility] [address] [place], [address] Lymphocytes/100 WBC (Bld) 38.6 % Normal 19-41 [facility] Comment on above: Performed By: #### L 501.9520, L500.4050, L501.9985, L501.9910, L3890.6301, L100.0100 #### [facility] [address] [place], [address] MCH (RBC) [Entitic mass] 30.9 pg Normal 27.0-32.0 [facility] Comment on above: Performed By: #### L 501.9520, L500.4050, L501.9985, L501.9910, L3890.6301, L100.0100 #### [facility] [address] [place], [address] MCHC (RBC) [Mass/Vol] 34.4 g/dL Normal 32-36 [facility] Comment on above: Performed By: #### L 501.9520, L500.4050, L501.9985, L501.9910, L3890.6301, L100.0100 #### [facility] [address] [place], [address] MCV (RBC) [Entitic vol] 89.7 fL Normal 80-94 [facility] Comment on above: Performed By: #### L 501.9520, L500.4050, L501.9985, L501.9910, L3890.6301, L100.0100 #### [facility] [address] [place], [address] Monocytes/100 WBC (Bld) 9.1 % Normal 0-10 [facility] Comment on above: Performed By: #### L 501.9520, L500.4050, L501.9985, L501.9910, L3890.6301, L100.0100 #### [facility] [address] [place], [address] Neutrophils/100 WBC (Bld) 49.5 % Normal 47-70 [facility] Comment on above: Performed By: #### L 501.9520, L500.4050, L501.9985, L501.9910, L3890.6301, L100.0100 #### [facility] [address] [place], [address] Nucleated RBC (Bld) [#/Vol] 0 10*3/uL Normal 0-5 [facility] Comment on above: Performed By: #### L 501.9520, L500.4050, L501.9985, L501.9910, L3890.6301, L100.0100 #### [facility] [address] [place], [address] Platelet mean volume (Bld) [Entitic vol] 10.1 fL Normal 6.2-12.0 [facility] Comment on above: Performed By: #### L 501.9520, L500.4050, L501.9985, L501.9910, L3890.6301, L100.0100 #### [facility] [address] [place], [address] Platelets (Bld) [#/Vol] 228 10*3/uL Normal 150-450 [facility] Comment on above: Performed By: #### L 501.9520, L500.4050, L501.9985, L501.9910, L3890.6301, L100.0100 #### [facility] [address] [place], [address] RBC (Bld) [#/Vol] 5.25 10*6/uL Normal 4.6-6.2 [facility] Comment on above: Performed By: #### L 501.9520, L500.4050, L501.9985, L501.9910, L3890.6301, L100.0100 #### [facility] [address] [place], [address] RDW SD 42.5 fl Normal 35.1-43.9 [facility] Comment on above: Performed By: #### L 501.9520, L500.4050, L501.9985, L501.9910, L3890.6301, L100.0100 #### [facility] [address] [place], [address] WBC (Bld) [#/Vol] 9.4 10*3/uL Normal 4.4-11.0 [facility] Comment on above: Performed By: #### L 501.9520, L500.4050, L501.9985, L501.9910, L3890.6301, L100.0100 #### [facility] [address] [place], [address] Carbon dioxide, total [Moles /volume] in Central venous bloodOrdered By: Bairon Knapp on 08-03-2024 CO2 [Moles/Vol] 24.7 mmol/L 21.0-32.0 [facility] Chloride assayOrdered By: Vik Knapp on 08-03-2024 Chloride [Moles/Vol] 102 mmol/L 98-108 [facility] Comprehensive Metabolic Prof ilon 08-03-2024 Albumin [Mass/Vol] 4.7 g/dL Normal 3.4-4.8 [facility] Comment on above: Performed By: #### L 501.9520, L500.4050, L501.9985, L501.9910, L3890.6301, L100.0100 #### [facility] [address] [place], [address] Albumin/Globulin [Mass ratio] 1.8 {ratio} Normal 0.9-2.4 [facility] Comment on above: Performed By: #### L 501.9520, L500.4050, L501.9985, L501.9910, L3890.6301, L100.0100 #### [facility] [address] [place], [address] ALK PHOS 87 U/L Normal 40-129 [facility] Comment on above: Performed By: #### L 501.9520, L500.4050, L501.9985, L501.9910, L3890.6301, L100.0100 #### [facility] [address] [place], [address] ALT [Catalytic activity/Vol] 33 U/L Normal <=46 [facility] Comment on above: Performed By: #### L 501.9520, L500.4050, L501.9985, L501.9910, L3890.6301, L100.0100 #### [facility] [address] [place], [address] AST [Catalytic activity/Vol] 26 U/L Normal <=37 [facility] Comment on above: Performed By: #### L 501.9520, L500.4050, L501.9985, L501.9910, L3890.6301, L100.0100 #### [facility] [address] [place], [address] Bilirubin [Mass/Vol] 0.27 mg/dL Normal 0.00-1.30 [facility] Comment on above: Performed By: #### L 501.9520, L500.4050, L501.9985, L501.9910, L3890.6301, L100.0100 #### [facility] [address] [place], [address] BUN/CRE 15.6 RATIO Normal 10-20 [facility] Comment on above: Performed By: #### L 501.9520, L500.4050, L501.9985, L501.9910, L3890.6301, L100.0100 #### [facility] [address], [address] Calcium [Mass/Vol] 9.6 mg/dL Normal 7.6-11.0 [facility] Comment on above: Performed By: #### L 501.9520, L500.4050, L501.9985, L501.9910, L3890.6301, L100.0100 #### [facility] [address] [place], [address] Chloride [Moles/Vol] 102 mmol/L Normal 98-108 [facility] Comment on above: Performed By: #### L 501.9520, L500.4050, L501.9985, L501.9910, L3890.6301, L100.0100 #### [facility] [address] [place], [address] CO2 [Moles/Vol] 24.7 mmol/L Normal 21.0-32.0 [facility] Comment on above: Performed By: #### L 501.9520, L500.4050, L501.9985, L501.9910, L3890.6301, L100.0100 #### [facility] [address] [place], [address] Creatinine [Mass/Vol] 0.87 mg/dL Normal 0.70-1.20 [facility] Comment on above: Performed By: #### L 501.9520, L500.4050, L501.9985, L501.9910, L3890.6301, L100.0100 #### [facility] [address] [place], [address] GAP 11 Normal 5-15 [facility] Comment on above: Performed By: #### L 501.9520, L500.4050, L501.9985, L501.9910, L3890.6301, L100.0100 #### [facility] [address] [place], [address] GFR/1.73 sq M.predicted among non-blacks MDRD (S/P/Bld) [Vol rate/Area] 98 mL/min/{1.73_m2} Normal >60 [facility] Comment on above: Result Comment: mL/m in/1.73m2 CKD-EPI Creatinine Equation (2020) Performed By: #### L 501.9520, L500.4050, L501.9985, L501.9910, L3890.6301, L100.0100 #### [facility] [address] [place], [address] Globulin (S) [Mass/Vol] 2.6 g/dL Normal 2.2-4.2 [facility] Comment on above: Performed By: #### L 501.9520, L500.4050, L501.9985, L501.9910, L3890.6301, L100.0100 #### [facility] [address] [place], [address] Glucose [Mass/Vol] 104 mg/dL High 70-99 [facility] Comment on above: Performed By: #### L 501.9520, L500.4050, L501.9985, L501.9910, L3890.6301, L100.0100 #### [facility] [address] [place], [address] Potassium [Moles/Vol] 4.5 mmol/L Normal 3.3-5.1 [facility] Comment on above: Performed By: #### L 501.9520, L500.4050, L501.9985, L501.9910, L3890.6301, L100.0100 #### [facility] [address] [place], [address] Sodium [Moles/Vol] 138 mmol/L Normal 133-145 [facility] Comment on above: Performed By: #### L 501.9520, L500.4050, L501.9985, L501.9910, L3890.6301, L100.0100 #### [facility] [address] [place], [address] T PROT 7.3 g/dL Normal 5.9-8.4 [facility] Comment on above: Performed By: #### L 501.9520, L500.4050, L501.9985, L501.9910, L3890.6301, L100.0100 #### [facility] [address] [place], [address] Urea nitrogen [Mass/Vol] 14 mg/dL Normal 4-19 [facility] Comment on above: Performed By: #### L 501.9520, L500.4050, L501.9985, L501.9910, L3890.6301, L100.0100 #### [facility] [address] [place], [address] Eosinophil percentageOrdered By: Bairon Knapp on 08-03-2024 Eosinophils/100 WBC (Bld) 1.9 % 0-5 [facility] Erythrocyte distribution wid th ratioOrdered By: Bairon Knapp on 08-03-2024 Erythrocyte distribution width (RBC) [Ratio] 12.9 % 11.6-14.6 [facility] Erythrocyte distribution wid th standard deviationOrdered By: Bairon Knapp on 08-03-2024 Erythrocyte distribution width (RBC) [Entitic vol] 42.5 fL 35.1-43.9 [facility] GFR/1.73 sq M.predicted taisha g non-blacks MDRD (S/P/Bld) [Vol rate/Area]Ordered By: Bairon Knapp on 08-03-2024 Estimated GFR (MDRD) Non-Af Amer 98 >60 [facility] Comment on above: mL/min/1.73m2 CKD-EP I Creatinine Equation (2020) Hematocrit Auto (Bld) [Volum e fraction]Ordered By: Bairon Knapp on 08-03-2024 Hematocrit (Bld) [Volume fraction] 47.1 % 40-54 [facility] Hemoglobin A1con 08-03-2024 HbA1c (Bld) [Mass fraction] 7.0 % Normal <=5.6 [facility] Comment on above: Performed By: #### L 501.9520, L500.4050, L501.9985, L501.9910, L3890.6301, L100.0100 #### [facility] [address] [place], [address] Hemoglobin A1c percentageOrd ered By: Bairon Knapp on 08-03-2024 HbA1c (Bld) [Mass fraction] 7.0 % >5.7 [facility] Hemoglobin measurementOrdere d By: Bairon Knapp on 08-03-2024 Hemoglobin (Bld) [Mass/Vol] 16.2 g/dL 13.0-16.5 [facility] Hepatitis C antibodyOrdered By: Bairon Knapp on 08-03-2024 Hepatitis C Antibody Non-Reactive Nonreactive [facility] Comment on above: Reactive: Presumptiv e evidence of antibodies to HCV. Follow CDC recommendations for supplemental testing.Non-Reactive: Antibodies to HCV were not detected; does not exclude the possibility of exposure to HCVReactive Results are presumptive evidence of antibodies to HCV. Follow CDC recommendations for supplemental testing.Order confirmation testing: HCV Quant by PCR testing - HCVPCR #[id number] Non Reactive: < 0.8 Equivocal: >/= 0.8 to < 1.0 Reactive: >/= 1.0The CDC requires that a reactive/equivocal HCV antibody result be sent out for confirmation. HCV Quant by PCR testing. Immature granulocytes/100 WB C Auto (Bld)Ordered By: Bairon Knapp on 08-03-2024 Immature granulocytes/100 WBC (Bld) 0.300 % 0.0-0.9 [facility] Comment on above: IG% - Immature Granu locytes (promyelocytes, myelocytes and metamyelocytes) > 1% indicates that a LEFT SHIFT is Present. L3890.6301on 08-03-2024 Hepatitis C Ab Non-Reactive Normal Nonreactive [facility] Comment on above: Result Comment: Reac tive: Presumptive evidence of antibodies to HCV. Follow CDC recommendations for supplemental testing. Non-Reactive: Antibodies to HCV were not detected; does not exclude the possibility of exposure to HCV Reactive Results are presumptive evidence of antibodies to HCV. Follow CDC recommendations for supplemental testing. Order confirmation testing: HCV Quant by PCR testing - HCVPCR #[id number] Non Reactive: < 0.8 Equivocal: >/= 0.8 to < 1.0 Reactive: >/= 1.[address] [facility] requires that a reactive/equivocal HCV antibody result be sent out for confirmation. HCV Quant by PCR testing. Performed By: #### L 501.9520, L500.4050, L501.9985, L501.9910, L3890.6301, L100.0100 #### [facility] [address] [place] [address]. [place], [address] Laboratory - Chemistry and C hemistry - challengeOrdered By: Bairon Knapp on 08-03-2024 AST [Catalytic activity/Vol] 26 U/L <38 [facility] Lymphocytes Auto (Unsp spec) [#/Vol][facility] Lymphocytes (Bld) [#/Vol] 3.61 10*3/uL 0.83-4.51 [facility] Lymphocytes/100 WBC Auto (Un sp spec)Ordered By: Bairon Knapp on 08-03-2024 Lymphocytes/100 WBC (Bld) 38.6 % 19-41 [facility] MCV (mean corpuscular volume ) determinationOrdered By: Bairon Knapp on 08-03-2024 MCV (RBC) [Entitic vol] 89.7 fL 80-94 [facility] Mean corpuscular hemoglobin (MCH) determinationOrdered By: Bairon Ra on 08-03-2024 MCH (RBC) [Entitic mass] 30.9 pg 27.0-32.0 [facility] Mean corpuscular hemoglobin concentration (MCHC) determinationOrdered By: Bairon Knapp on 08-03-2024 MCHC (RBC) [Mass/Vol] 34.4 g/dL 32-36 [facility] Mean platelet volume determi nationOrdered By: Bairon Knapp on 08-03-2024 Platelet mean volume (Bld) [Entitic vol] 10.1 fL 6.2-12.0 [facility] Monocyte percentageOrdered B y: Bairon Knapp on 08-03-2024 Monocytes/100 WBC (Bld) 9.1 % 0-10 [facility] Neutrophil percentageOrdered By: Bairon Knapp on 08-03-2024 Neutrophils/100 WBC (Bld) 49.5 % 47-70 [facility] Nucleated red blood cell per centageOrdered By: Bairon Knapp on 08-03-2024 Nucleated RBC/100 WBC (Bld) [Ratio] 0 % 0-5 [facility] PSA, total screeningOrdered By: Bairon Knapp on 08-03-2024 Prostate Specific Antigen Screen 1.33 ng/mL 0.02-4.00 [facility] Comment on above: This test was perfor med using the [employer] tPSA method. Measured values of a patient sample can vary depending on the testing procedure used. PSA values determined on patient samples by different testing procedures cannot be used interchangeably. If there is a change in PSA assays while monitoring therapy, sequential testing should be performed to confirm baseline values. PSA,Total - Annual Screenon 08-03-2024 PSA,TOT SCREEN 1.33 ng/mL Normal 0.02-4.00 [facility] Comment on above: Result Comment: This test was performed using the [employer] tPSA method. Measured values of a patient??sample can vary depending on the testing procedure used. PSA values determined on patient samples by different testing procedures cannot be used interchangeably. If there is a change in PSA assays while monitoring therapy, sequential testing should be performed to confirm baseline values. Performed By: #### L 501.9520, L500.4050, L501.9985, L501.9910, L3890.6301, L100.0100 #### [facility] [address] [place], [address] Platelet countOrdered By: Vik Knapp on 08-03-2024 Platelets (Bld) [#/Vol] 228 10*3/uL 150-450 [facility] Potassium (Unsp spec) [Mass/ Vol]Ordered By: Bairon Knapp on 08-03-2024 Potassium [Moles/Vol] 4.5 mmol/L 3.3-5.1 [facility] RBC Auto (Bld) [#/Vol]Ordere d By: Bairon Knapp on 08-03-2024 RBC (Bld) [#/Vol] 5.25 10*6/uL 4.6-6.2 [facility] Serum creatinine measurement (mass/volume)Ordered By: Bairon Knapp on 08-03-2024 Creatinine [Mass/Vol] 0.87 mg/dL 0.70-1.20 [facility] Serum globulin measurementOr dered By: Bairon Knapp on 08-03-2024 Globulin (S) [Mass/Vol] 2.6 g/dL 2.2-4.2 [facility] Serum glucose measurement (m ass/volume)Ordered By: Bairon Knapp on 08-03-2024 Glucose [Mass/Vol] 104 mg/dL High 70-99 [facility] Serum or plasma alanine gomez otransferase (ALT) measurementOrdered By: Bairon Knapp on 08-03-2024 ALT [Catalytic activity/Vol] 33 U/L <47 [facility] Serum or plasma albumin nahomy urement (mass/volume)Ordered By: Bairon Knapp 08-03-2024 Albumin [Mass/Vol] 4.7 g/dL 3.4-4.8 [facility] Serum or plasma albumin/glob ulin mass ratioOrdered By: Bairon Knapp 08-03-2024 Albumin/Globulin [Mass ratio] 1.8 {ratio} 0.9-2.4 [facility] Serum or plasma alkaline paula sphatase measurementOrdered By: Bairon Knapp 08-03-2024 ALP [Catalytic activity/Vol] 87 U/L 40-129 [facility] Serum or plasma calcium nahomy urement (mass/volume)Ordered By: Bairon Knapp on 08-03-2024 Calcium [Mass/Vol] 9.6 mg/dL 7.6-11.0 [facility] Serum or plasma urea nitroge n measurement (mass/volume)Ordered By: Bairon Knapp on 08-03-2024 Urea nitrogen [Mass/Vol] 14 mg/dL 4-19 [facility] Sodium levelOrdered By: Bairon Knapp on 08-03-2024 Sodium [Moles/Vol] 138 mmol/L 133-145 [facility] TSH DL <= 0.005 mIU/L QnOrde red By: Bairon Knapp on 08-03-2024 Thyroid Stimulating Hormone (TSH) 2.580 uIU/mL 0.300-4.200 [facility] Thyroid Stim Hormone (TSH)on 08-03-2024 TSH 2.580 uIU/mL Normal 0.300-4.200 [facility] Comment on above: Performed By: #### L 501.9520, L500.4050, L501.9985, L501.9910, L3890.6301, L100.0100 #### [facility] [address] [place] [address]. [place], [address] Total proteinOrdered By: Bairon Knapp on 08-03-2024 Protein [Mass/Vol] 7.3 g/dL 5.9-8.4 [facility] White blood cell (WBC) count Ordered By: Bairon Knapp on 08-03-2024 WBC (Bld) [#/Vol] 9.4 10*3/uL 4.4-11.0 [facility] CNOVon 03-14-2024 CNOV Office Visit (UCTR ) -------- ALBER LENZ ([id number]) 1965 M NFR Date Time Provider Department 03/14/24 4:00 PM CAITLIN SI[facility] During your visit today, we recorded the following information about you: Temperature Pulse Respiration Blood pressure 98.7 degrees 78/minute 16/minute 110/60 Weight 78.4 kg Caitlin Sierra PA 03/14/2024 4:23 PM Signed This note was created using [employer]. Subjective Alber Lenz is a 58 year old male. HPI 58-year-old male presents for cough, chest congestion, nasal congestion x 3 weeks. Patient states he has had nasal congestion, sinus pressure for about 3 weeks. He has had a productive cough for 3 weeks. He states he is coughing up yellow/green mucus. Patient was seen here 03/08/2024 and diagnosed with sinusitis. He was prescribed doxycycline. Patient states symptoms have not improved at all. He states doxycycline does not work for me. He states normally he gets Levaquin when he is sick. Patient denies any history of COPD or asthma. He is a smoker for 30+ years. He denies any chest pain or shortness of breath. No wheezing. No fevers. He has been using Afrin for the nasal congestion which does help. No other complaint. PAST MEDICAL HISTORY Diagnosis Date Allergic rhinitis due to pollen 05/22/2015 Degenerative arthritis of finger 05/22/2015 2nd PIP Elevated fasting blood sugar 05/24/2015 Erectile dysfunction 09/18/2016 Family history of early CAD 08/07/2017 Last stress , repeat every 5 years Family history of [place] (myocardial infarction) 05/22/2015 Dad and Brother GERD without esophagitis 05/22/2015 History of 2019 novel coronavirus disease (COVID-19) 07/02/2022 Early 2021 Hyperlipidemia, mixed 12/30/2021 [facility] Hypertriglyceridemia 12/30/2021 Neck pain 05/07/2021 Restless legs syndrome (RLS) 05/28/2007 Smoker 05/22/2015 Started at age 15 up to 1 PPD Subclinical hypothyroidism 12/30/2021 Type 2 diabetes mellitus without complication, without long-term current use of insulin (HCC) 02/18/2021 PAST SURGICAL HISTORY Procedure Laterality Date COLONOSCOPY FLX DX W/COLLJ SPEC WHEN PFRMD 08/14/14 Colonoscopy, recheck 5 yrs COLONOSCOPY FLX DX W/COLLJ SPEC WHEN PFRMD 02/13/2020 Repeat in 5 years HERNIA REPAIR HX LAPAROSCOPY SURG RPR INITIAL INGUINAL HERNIA Bilateral 05/13/2017 medium 3D max - bilat PAST SURGICAL HISTORY OF 04/2017 Rt and Lt inguinal hernia repair. REPAIR INGUINAL HERNIA Bilateral 08/1963 TONSILLECTOMY HX ALLERGIES Sulfa (Sulfonamide Antibiotics) MEDICATIONS Vitamin E, dl, acetate, (VITAMIN E) 400 unit capsule Take 1 capsule by mouth once daily. Cholecalciferol, Vitamin D3, 250 mcg (10,000 unit) cap Take 1 capsule by mouth once daily. Ascorbic Acid (VITAMIN C) 1,000 mg tablet Take 1 tablet by mouth once daily. omeprazole (PRILOSEC) 20 mg capsule Take 1 capsule by mouth daily before breakfast. 1/2 hr before meal. mv-mn/folic/lutein/herba l 293 (ALIVE MEN'S 50 PLUS MULTIVIT ORAL) Take by mouth. Take one tablet daily omega-3 fatty acids 1,000 mg cap Take 2 capsules by mouth twice daily. rosuvastatin (CRESTOR) 10 mg tablet Take 0.5 tablets by mouth daily at bedtime. (Patient taking differently: Take 10 mg by mouth daily at bedtime.) cetirizine (ZYRTEC) 10 mg tablet Take 1 tablet by mouth once daily. aspirin, enteric coated (ASPIRIN, ENTERIC COATED) 81 mg EC tablet Take 1 tablet by mouth once daily. FAMILY HISTORY Problem Relation Age of Onset Diabetes Father Coronary Artery Disease Father 60's Lipids Father Coronary Artery Disease Brother late 30's Diabetes Mother Lipids Mother Stroke Mother Hypertension Brother Lipids Brother Lipids Sister Seizures Brother Obesity Brother Thyroid Brother Social History Tobacco Use Smoking status: Light Smoker Current packs/day: 0.00 Average packs/day: 1 pack/day for 22.0 years (22.0 ttl pk-yrs) Types: Cigarettes Start date: 04/03/1995 Last attempt to quit: 04/03/2017 Years since quittin.9 Smokeless tobacco: Never Vaping Use Vaping status: Never Used Substance Use Topics Alcohol use: Yes Comment: very rarely Drug use: No Review of Systems Constitutional: Negative for chills and fever. HENT: Positive for congestion, sinus pressure and sinus pain. Negative for sore throat. Respiratory: Positive for cough. Negative for shortness of breath. Gastrointestinal: Negative for diarrhea and vomiting. Objective BP 110/60 Pulse 78 Temp 37.1 ?C (98.7 ?F) Resp 16 Wt 78.4 kg (172 lb 13.5 oz) SpO2 94% BMI 27.48 kg/m? Physical Exam Vitals and nursing note reviewed. Constitutional: General: He is not in acute distress. Appearance: Normal appearance. He is not toxic-appearing. HENT: Right Ear: Tympanic membrane and ear canal normal. Left Ear: Tympanic membrane and ear canal normal. Nose: Muco (more content not included)... Normal [facility] XR CHEST 2V FRONTAL/LATon XR CHEST 2V FRONTAL/LAT * * *Final Report* * * DATE OF EXAM: Mar 14 2024 4:02PM WOX [id number] - XR CHEST 2V FRONTAL/LAT / PROCEDURE REASON: Subacute cough * * * * Physician Interpretation * * * * EXAMINATION: CHEST RADIOGRAPH (2 VIEW FRONTAL and LATERAL) CLINICAL HISTORY: Subacute cough MQ: XC2_6 EXAM DATE/TIME: 03/14/2024 4:02 PM COMPARISON: No relevant prior studies available. RESULT: Lines, tubes, and devices: None. Lungs and pleura: No consolidation. No lung mass. No pleural effusion. No pneumothorax. Cardiomediastinal silhouette: Normal cardiomediastinal silhouette. Bones and soft tissues: Degenerative changes are present within the thoracic spine. IMPRESSION: No acute radiographic abnormality. Jet Blade Polisher: KEYA Transcribe Date/Time: Mar 14 2024 4:03P Dictated by : DM BRITT MD This examination was interpreted and the report reviewed and electronically signed by: DM BRITT MD on Mar 14 2024 4:08PM EST [id number] Normal [facility] XR Chest PA and Lateralon Radiology Study observation (narrative) [facility] IMPRESSION: No acute radiographic abnormality. Jet Blade Polisher: [facility] Transcribe Date/Time: Mar 14 2024 4:03P Dictated by : DM BRITT MD This examination was interpreted and the report reviewed and electronically signed by: DM BRITT MD on Mar 14 2024 4:08PM EST DIVISION OF RADIOLOGY * * *Final Report* * * DATE OF EXAM: Mar 14 2024 4:02PM WOX [id number] - XR CHEST 2V FRONTAL/LAT / PROCEDURE REASON: Subacute cough * * * * Physician Interpretation * * * * EXAMINATION: CHEST RADIOGRAPH (2 VIEW FRONTAL & LATERAL) CLINICAL HISTORY: Subacute cough MQ: XC2_6 EXAM DATE/TIME: 03/14/2024 4:02 PM COMPARISON: No relevant prior studies available. RESULT: Lines, tubes, and devices: None. Lungs and pleura: No consolidation. No lung mass. No pleural effusion. No pneumothorax. Cardiomediastinal silhouette: Normal cardiomediastinal silhouette. Bones and soft tissues: Degenerative changes are present within the thoracic spine. DIVISION OF RADIOLOGY Provider, Abelino Bach [facility] - 03/14/2024 * * *Final Report* * * DATE OF EXAM: Mar 14 2024 4:02PM WOX [id number] - XR CHEST 2V FRONTAL/LAT / PROCEDURE REASON: Subacute cough * * * * Physician Interpretation * * * * EXAMINATION: CHEST RADIOGRAPH (2 VIEW FRONTAL & LATERAL) CLINICAL HISTORY: Subacute cough MQ: XC2_6 EXAM DATE/TIME: 03/14/2024 4:02 PM COMPARISON: No relevant prior studies available. RESULT: Lines, tubes, and devices: None. Lungs and pleura: No consolidation. No lung mass. No pleural effusion. No pneumothorax. Cardiomediastinal silhouette: Normal cardiomediastinal silhouette. Bones and soft tissues: Degenerative changes are present within the thoracic spine. IMPRESSION IMPRESSION: No acute radiographic abnormality. Jet Blade Polisher: KEYA Transcribe Date/Time: Mar 14 2024 4:03P Dictated by : DM BRITT MD This examination was interpreted and the report reviewed and electronically signed by: DM BRITT MD on Mar 14 2024 4:08PM EST [facility] XR Chest PA and LateralOrder ed By: [facility] Provider on 03-14-2024 [facility] CNOVon 03-08-2024 CNOV Office Visit ([facility] ) -------- ALBER LENZ ([id number]) 1965 M NFR Date Time Provider Department 03/08/24 3:45 PM ANA PAULANIRAV [facility] During your visit today, we recorded the following information about you: Temperature Pulse Respiration Blood pressure 97.8 degrees 77/minute 18/minute 126/81 Weight 77 kg Ana [email or web address] 03/08/2024 3:52 PM Signed This note was created using [employer]. Subjective Alber Lenz is a 58 year old male. HPI For the last 17 days pt has had a cough, headache, and sinus pressure. He has been using OTC meds with symptoms worsening symptoms. He notes that his cough is now becoming productive. Review of Systems Constitutional: Negative for fever. HENT: Positive for congestion and sinus pain. Respiratory: Positive for cough. Musculoskeletal: Positive for myalgias. Neurological: Positive for headaches. Objective BP 126/81 Pulse 77 Temp 36.6 ?C (97.8 ?F) Resp 18 Wt 77 kg (169 lb 12.1 oz) SpO2 97% BMI 26.99 kg/m? Physical Exam Vitals and nursing note reviewed. Constitutional: General: He is not in acute distress. Appearance: Normal appearance. He is not ill-appearing. HENT: Head: Normocephalic. Right Ear: Tympanic membrane normal. Left Ear: Tympanic membrane normal. Mouth/Throat: Mouth: Mucous membranes are moist. Eyes: Conjunctiva/sclera: Conjunctivae normal. Cardiovascular: Rate and Rhythm: Normal rate and regular rhythm. Pulmonary: Effort: Pulmonary effort is normal. Breath sounds: Normal breath sounds. Musculoskeletal: General: Normal range of motion. Cervical back: Normal range of motion. Skin: General: Skin is warm and dry. Neurological: General: No focal deficit present. Mental Status: He is alert. Psychiatric: Mood and Affect: Mood normal. Behavior: Behavior normal. Assessment and Plan ASSESSMENT/PLAN: 1. Bacterial sinusitis - ICD9: 473.9, 041.9, ICD10: J32.9, B96.89 - Will begin treatment with as per antibiotic as written, see orders - Follow up in one week if symptoms persist or worsen. -Discussed with patient concern for respiratory infection combined with his history of smoking. Patient will be started on doxycycline which will cover both sinus and respiratory issues. Patient comfortable with plan. No steroids given as patient is diabetic. - DOXYCYCLINE MONOHYDRATE 100 MG CAPSULE Nirav Valladares APRN.CNP Allergies As of Date: 03/08/2024 Noted Allergy Reaction SULFA (SULFONAMIDE ANTIBIOTICS) 01/29/2005 16 - Unknown Comments: Was chewing on matches as a child and has narrowing of throat. Date Reviewed: 03/08/2024 Reviewed by: Nirav Valladares APRN.CNP - Fully Assessed Reason for Visit: Cough [28] Cmt: Heaviness in chest, body aches, headache. [place] green phlegm, sinus head congestion and pain. X 17 days Primary Visit Diagnosis:Bacterial sinusitis [J32.9, B96.89] Order(s):doxycycline monohydrate (MONODOX) 100 mg capsuleTake 1 capsule by mouth two times a day for 5 days.Disp: 10 capsuleRfl: 0 Prescriptions as of 03/08/2024 - doxycycline monohydrate (MONODOX) 100 mg capsule Take 1 capsule by mouth two times a day for 5 days. - Vitamin E, dl, acetate, (VITAMIN E) 400 unit capsule Take 1 capsule by mouth once daily. - Cholecalciferol, Vitamin D3, 250 mcg (10,000 unit) cap Take 1 capsule by mouth once daily. - Ascorbic Acid (VITAMIN C) 1,000 mg tablet Take 1 tablet by mouth once daily. - omeprazole (PRILOSEC) 20 mg capsule Take 1 capsule by mouth daily before breakfast. 1/2 hr before meal. - mv-mn/folic/lutein/herba l 293 (ALIVE MEN'S 50 PLUS MULTIVIT ORAL) Take by mouth. Take one tablet daily - omega-3 fatty acids 1,000 mg cap Take 2 capsules by mouth twice daily. - rosuvastatin (CRESTOR) 10 mg tablet Take 0.5 tablets by mouth daily at bedtime. - cetirizine (ZYRTEC) 10 mg tablet Take 1 tablet by mouth once daily. - aspirin, enteric coated (ASPIRIN, ENTERIC COATED) 81 mg EC tablet Take 1 tablet by mouth once daily. Problem List As Of Date 03/08/2024 Noted Resolved Restless legs syndrome (RLS) [G25.81] 05/28/2007 05/01/2017 Unspecified pruritic disorder [L29.9] 05/28/2007 05/01/2017 Smoker [F17.200] 05/22/2015 Family history of [place] (my[place] infarction) [Z*05/22/2015 05/01/2017 GERD without esophagitis [K21.9] 05/22/2015 Allergic rhinitis due to pollen [J30.1] 05/22/2015 Degenerative arthritis of finger [M19.049] 05/22/2015 Well adult exam [Z00.00] 06/06/2016 Erectile dysfunction [N52.9] 09/18/2016 Screening for colon cancer [Z12.11] 02/06/2017 Difficult airway for intubation [T88.4XXA] 05/13/2017 Family history of early CAD [Z82.49] 08/07/2017 Type 2 diabetes mellitus without complication, *02/18/2021 Neck pain [M54.2] 05/07/2021 Subclinical hypothyroidism [E03.8] 12/30/2021 Hyperlipidemia, mixed [E78.2] 12/30/2021 History of 2019 novel coronavirus disease (COVI* (more content not included)... [facility] ALBER LENZ ([id number]) 1965 M NFR Date Time Provider Department [facility]/02[facility] During your visit today, we recorded the following information about you: Rosemary Lucero LPN 12/02/2023 2:32 PM Signed Patient/Family calling with questions regarding financials and billing. Patient/Family directed in the following manner: For financial questions about an upcoming service, use [employer] to schedule a callback with a Patient Partner Marketing Manager at [facility] [facility] or call toll-free at [phone]. For questions regarding a medical bill for a past / post service, use [employer] to schedule a callback with a Endoscopy Tech at [email or web address] or call toll-free at [phone]. Pt was given the cust service number AND he will call. Patient/Family verbalized understanding. Rosemary Lucero LPN Allergies As of Date: 12/02/2023 Noted Allergy Reaction SULFA (SULFONAMIDE ANTIBIOTICS) 01/29/2005 16 - Unknown Comments: Was chewing on matches as a child and has narrowing of throat. Date Reviewed: 08/05/2023 Reviewed by: Dwayne Mccullough MD - Fully Assessed Reason for Visit: Coding Questions [Other] Prescriptions as of 12/02/2023 - Vitamin E, dl, acetate, (VITAMIN E) 400 unit capsule Take 1 capsule by mouth once daily. - Cholecalciferol, Vitamin D3, 250 mcg (10,000 unit) cap Take 1 capsule by mouth once daily. - Ascorbic Acid (VITAMIN C) 1,000 mg tablet Take 1 tablet by mouth once daily. - omeprazole (PRILOSEC) 20 mg capsule Take 1 capsule by mouth daily before breakfast. 1/2 hr before meal. - mv-mn/folic/lutein/herba l 293 (ALIVE MEN'S 50 PLUS MULTIVIT ORAL) Take by mouth. Take one tablet daily - omega-3 fatty acids 1,000 mg cap Take 2 capsules by mouth twice daily. - rosuvastatin (CRESTOR) 10 mg tablet Take 0.5 tablets by mouth daily at bedtime. - cetirizine (ZYRTEC) 10 mg tablet Take 1 tablet by mouth once daily. - aspirin, enteric coated (ASPIRIN, ENTERIC COATED) 81 mg EC tablet Take 1 tablet by mouth once daily. Problem List As Of Date 12/02/2023 Noted Resolved Restless legs syndrome (RLS) [G25.81] 05/28/2007 05/01/2017 Unspecified pruritic disorder [L29.9] 05/28/2007 05/01/2017 Smoker [F17.200] 05/22/2015 Family history of [place] (myocardial infarction) [Z*05/22/2015 05/01/2017 GERD without esophagitis [K21.9] 05/22/2015 Allergic rhinitis due to pollen [J30.1] 05/22/2015 Degenerative arthritis of finger [M19.049] 05/22/2015 Well adult exam [Z00.00] 06/06/2016 Erectile dysfunction [N52.9] 09/18/2016 Screening for colon cancer [Z12.11] 02/06/2017 Difficult airway for intubation [T88.4XXA] 05/13/2017 Family history of early CAD [Z82.49] 08/07/2017 Type 2 diabetes mellitus without complication, *02/18/2021 Neck pain [M54.2] 05/07/2021 Subclinical hypothyroidism [E03.8] 12/30/2021 Hyperlipidemia, mixed [E78.2] 12/30/2021 History of 2019 novel coronavirus disease (COVI*07/02/2022 Screening for prostate cancer [Z12.5] 04/21/2023 Encounter Status:Closed by ROSEMARY LUCERO on 12/02/23 [facility] Nurse Visit (FAMPWS) -------- ALBER LENZ ([id number]) 1965 M NFR Date Time Provider Department 11/09/23 3:30 PM [place] [facility] During your visit today, we recorded the following information about you: Ciarra Dominique LPN 11/09/2023 4:18 PM Signed Patient given shingrix IM in the right deltoid. Patient tolerated injection well. Lot#: [id number] Exp date: 10/01/2025 Ciarra Dominique LPN Allergies As of Date: 11/09/2023 Noted Allergy Reaction SULFA (SULFONAMIDE ANTIBIOTICS) 01/29/2005 16 - Unknown Comments: Was chewing on matches as a child and has narrowing of throat. Date Reviewed: 08/05/2023 Reviewed by: Dwayne Mccullough MD - Fully Assessed Reason for Visit: Nurse Visit [792] Cmt: shingrix dose 2 Primary Visit Diagnosis:Need for vaccination [Z23] Prescriptions as of 11/09/2023 - Vitamin E, dl, acetate, (VITAMIN E) 400 unit capsule Take 1 capsule by mouth once daily. - Cholecalciferol, Vitamin D3, 250 mcg (10,000 unit) cap Take 1 capsule by mouth once daily. - Ascorbic Acid (VITAMIN C) 1,000 mg tablet Take 1 tablet by mouth once daily. - omeprazole (PRILOSEC) 20 mg capsule Take 1 capsule by mouth daily before breakfast. 1/2 hr before meal. - mv-mn/folic/lutein/herba l 293 (ALIVE MEN'S 50 PLUS MULTIVIT ORAL) Take by mouth. Take one tablet daily - omega-3 fatty acids 1,000 mg cap Take 2 capsules by mouth twice daily. - rosuvastatin (CRESTOR) 10 mg tablet Take 0.5 tablets by mouth daily at bedtime. - cetirizine (ZYRTEC) 10 mg tablet Take 1 tablet by mouth once daily. - aspirin, enteric coated (ASPIRIN, ENTERIC COATED) 81 mg EC tablet Take 1 tablet by mouth once daily. Problem List As Of Date 11/09/2023 Noted Resolved Restless legs syndrome (RLS) [G25.81] 05/28/2007 05/01/2017 Unspecified pruritic disorder [L29.9] 05/28/2007 05/01/2017 Smoker [F17.200] 05/22/2015 Family history of [place] (my[place] infarction) [Z*05/22/2015 05/01/2017 GERD without esophagitis [K21.9] 05/22/2015 Allergic rhinitis due to pollen [J30.1] 05/22/2015 Degenerative arthritis of finger [M19.049] 05/22/2015 Well adult exam [Z00.00] 06/06/2016 Erectile dysfunction [N52.9] 09/18/2016 Screening for colon cancer [Z12.11] 02/06/2017 Difficult airway for intubation [T88.4XXA] 05/13/2017 Family history of early CAD [Z82.49] 08/07/2017 Type 2 diabetes mellitus without complication, *02/18/2021 Neck pain [M54.2] 05/07/2021 Subclinical hypothyroidism [E03.8] 12/30/2021 Hyperlipidemia, mixed [E78.2] 12/30/2021 History of 2019 novel coronavirus disease (COVI*07/02/2022 Screening for prostate cancer [Z12.5] 04/21/2023 Encounter Status:Closed by CIARRA DOMINIQUE LPN on 11/09/23 Normal [facility] EMERGENCY REPORTon 2 EMERGENCY REPORT [facility] EMERGENCY ROOM REPORT NAME ACCOUNT SEX AGE ADMIT DISCHARGE PT MED. RECORD# NUMBER DATE DATE TYPE YOANNA [id number] Trevor 56 12/13/21 12/13/21 3 ALBER Henderson [id number] ROOM: ER DATE OF : 1965 DICTATING PHYSICIAN: Tameka Galvan ADDENDUM EMERGENCY DEPARTMENT COURSE AND TREATMENT: Visual acuity showed vision in the left eye with his eyeglasses on as 20/40. Vision in his right unaffected eye with his eyeglasses on was 20/13. Dictated By: Tameka Galvan DO 12/13/21 23:40 JOB #: [id number] Transcribed By: dante 12/14/21 15:25 Electronically signed by: E-Sign: Dr. Tameka Galvan D.O. 12/29/21 19:11 Page 1 of 1 GAYATHRIJANNY ALBER Henderson Emergency Room Report Normal [facility] EMERGENCY REPORT [facility] EMERGENCY ROOM REPORT NAME ACCOUNT SEX AGE ADMIT DISCHARGE PT MED. RECORD# NUMBER DATE DATE TYPE YOANNA [id number] Trevor 56 12/13/21 12/13/21 3 ALBER Henderson [id number] ROOM: ER DATE OF : 1965 DICTATING PHYSICIAN: Tameka Galvan TIME SEEN: 2225 hours. HISTORY OF PRESENT ILLNESS: This is a 56-year-old white male complaining of a foreign body sensation in his left eye. He states he was helping a coworker today cut an iron oxide pipe, and several hours later he started to get some foreign body-type irritation to his left eye and noticed his left eye was a little bit red, and he had some excessive tearing. He does complain of some blurred vision in the left eye, but it does clear with blinking. Last tetanus was greater than 5 years ago. PCP [address] Dr[address] Mccullough in [place]. PAST MEDICAL HISTORY: Denied. PAST SURGICAL HISTORY: Hernia repair. ALLERGIES: He is allergic to sulfa. SOCIAL HISTORY: He is a smoker of one pack per day. He does admit to occasional alcohol use. He denies any drug use. He lives at home with family. REVIEW OF SYSTEMS: He does admit to some blurred vision off and on, which will clear with blinking. He does complain of some left eye irritation and redness with excessive tearing but denies any diplopia. He denies any ear pain, sore throat, or nasal congestion. He denies any chest pain, shortness of breath, cough, sputum, wheezing, abdominal pain, nausea, vomiting, diarrhea, constipation, melena, hematochezia, headache, numbness, unsteady gait, weakness, neck or back pain, joint pain, skin rash or swelling. Further review of systems is negative. PHYSICAL EXAMINATION: VITAL SIGNS: Blood pressure is 132/87, pulse 68, respirations 18, temperature 97.8, pulse oximetry 97% on room air, and weight 165 pounds. GENERAL: The patient is alert and oriented x3. He presently appears in no acute distress. He is pleasant and cooperative, smiling and laughing. He does follow commands. HEENT: Head appears atraumatic. Pupils are equal and reactive to light. Red reflexes are intact bilaterally. Extraocular muscles are intact. I did note some mild conjunctival injection in the left eye, and he did have some mild tearing to the left eye. When I did examine the left eye with a pair of magnifying loupes, I could see 3 brownish-appearing, small foreign bodies on the anterior cornea. They were between 9 and 12 o'clock on the cornea, and they were over the iris. I see no hyphema. No periorbital swelling. No subconjunctival hemorrhage. NOSE: Nose exhibits no rhinorrhea or epistaxis. MOUTH: Mucous membranes are moist. Teeth are intact. NECK: Neck is supple. Trachea is midline. No JVD or lymphadenopathy. No posterior cervical tenderness. No nuchal rigidity. LUNGS: Lungs are clear to auscultation bilaterally. No adventitious sounds are noted. No accessory muscle use is noted. CV: Heart rate and rhythm are regular without murmur. Page 1 of 2 ALBER LENZ Emergency Room Report ALBER LENZ Beatriz : 1965 ABDOMEN: Abdomen is soft and nontender with normoactive bowel sounds x4 quadrants. No guarding or rigidity. No rebound. No palpable abdominal masses. No hepatosplenomegaly. EXTREMITIES: No edema or cyanosis. Peripheral pulses are intact. No motor or sensory deficits are noted. 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 SKIN: Skin is warm and dry. No diaphoresis or rash. NEUROLOGIC: Neurologic examination shows the patient to be alert and oriented x4. No motor or sensory deficits are noted. Normal speech. EMERGENCY DEPARTMENT COURSE AND TREATMENT: I did give the patient some tetracaine. I put 2 drops in the left eye, and his pain went away immediately. He had no further irritation, and it felt good. I looked in his left eye initially with the magnifying loupes, and I could see 3 small brown specks on the left cornea over the iris between 9 and 12 o'clock. I was able to remove all of those with a moistened cotton swab. I had soaked it in the eye wash solution that comes with the eye kit. I was able to remove all 3 of those with the swab. I did brenda his left upper eyelid. There was no foreign body under the eyelid. I did look under his lower eyelid as well, and I see no foreign body there. I did place some fluorescein stain in his left eye, and I did see two small punctate-appearing corneal abrasions, but they were superficial. We did do a visual acuity here, and I placed the patient on erythromycin ophthalmic ointment. He is to apply a ribbon of ointment to the left eye every 6 hours times 5 to 7 days. We did apply some erythromycin ophthalmic ointment to his eye here prior to discharge and sent him home with the tube. I did give him a tetanus shot here today, Tdap 0.5 mL IM. Initially he refused the tetanus, and then he decided to go ahead and get it. He did not even remember when his last tetanus was, so I am sure it has been more than 5 years ago. I gave h (more content not included)... Normal [facility] XR HAND GENERAL 3V PA/LAT/OB L LEFTon 12-18-2021 [facility] XR Hand - left PA and Latera l and Obliqueon 12-18-2021 IMPRESSION: No acute osseous abnormality. Mild degenerative change. Jet Blade Polisher: KEYA Transcribe Date/Time: Dec 18 2021 4:01P Dictated by : MJ JAY DO This examination was interpreted and the report reviewed and electronically signed by: MJ JAY DO on Dec 18 2021 4:03PM EST ZZZ_DO_NOT_ USE_DIVISIO N OF RADIOLOGY * * *Final Report* * * DATE OF EXAM: Dec 18 2021 3:58PM WOX [id number] - XR HAND 3V PA/LAT/OBL LT / PROCEDURE REASON: Left hand pain * * * * Physician Interpretation * * * * EXAMINATION: XR HAND 3V PA/LAT/OBL LT PATIENT/TECHNOLOGIST PROVIDED HISTORY: Pain and stiffness in left thumb CLINICAL INFORMATION: 56 years old Male with Left hand pain TECHNIQUE: XR HAND 3V PA/LAT/OBL LT Laterality: LEFT Number of different views (projections): 3 COMPARISON: None RESULT: No fracture or dislocation. Mild scattered degenerative changes at the interphalangeal joints. Joint spaces are otherwise maintained. Bony mineralization is normal. No erosions or other significant abnormality. ZZZ_DO_NOT_ USE_DIVISIO N OF RADIOLOGY Provider, [facility] - 12/18/2021 * * *Final Report* * * DATE OF EXAM: Dec 18 2021 3:58PM WOX 5345 - XR HAND 3V PA/LAT/OBL LT / PROCEDURE REASON: Left hand pain * * * * Physician Interpretation * * * * EXAMINATION: XR HAND 3V PA/LAT/OBL LT PATIENT/TECHNOLOGIST PROVIDED HISTORY: Pain and stiffness in left thumb CLINICAL INFORMATION: 56 years old Male with Left hand pain TECHNIQUE: XR HAND 3V PA/LAT/OBL LT Laterality: LEFT Number of different views (projections): 3 COMPARISON: None RESULT: No fracture or dislocation. Mild scattered degenerative changes at the interphalangeal joints. Joint spaces are otherwise maintained. Bony mineralization is normal. No erosions or other significant abnormality. IMPRESSION IMPRESSION: No acute osseous abnormality. Mild degenerative change. Jet Blade Polisher: PSCB Transcribe Date/Time: Dec 18 2021 4:01P Dictated by : MJ JAY DO This examination was interpreted and the report reviewed and electronically signed by: MJ JAY DO on Dec 18 2021 4:03PM EST [facility] Radiology Study observation (narrative) [facility] XR Hand - left PA and Latera l and ObliqueOrdered By: Ccf Provider on 12-18-2021 [facility] XR Cervical spine AP and Lat eral and obliqueon 04-02-2021 IMPRESSION: Degenerative changes in the spine most pronounced at C6/C7 as described. Jet Blade [facility] Transcribe Date/Time: Apr 02 2021 4:30P Dictated by : DM BRITT MD This examination was interpreted and the report reviewed and electronically signed by: DM BRITT MD on Apr 02 2021 4:32PM EST DIVISION OF RADIOLOGY * * *Final Report* * * DATE OF EXAM: Apr 02 2021 4:27PM WOX [id number] - XR CERVICAL 4V AP/LAT/OBL / PROCEDURE REASON: Neck pain * * * * Physician Interpretation * * * * CLINICAL INDICATION: Neck pain TECHNIQUE: AP, lateral and bilateral oblique radiographs of the cervical spine COMPARISON: Radiograph dated November 22, 2012 FINDINGS: Normal prevertebral soft tissues. Preservation of vertebral body height. Marginal osteophyte formation throughout the cervical spine. Mild disc space narrowing at C6/C7. Mild to moderate bilateral C6/C7 neural foraminal narrowing. DIVISION OF RADIOLOGY Provider, [facility] - 04/02/2021 * * *Final Report* * * DATE OF EXAM: Apr 02 2021 4:27PM WOX 5311 - XR CERVICAL 4V AP/LAT/OBL / PROCEDURE REASON: Neck pain * * * * Physician Interpretation * * * * CLINICAL INDICATION: Neck pain TECHNIQUE: AP, lateral and bilateral oblique radiographs of the cervical spine COMPARISON: Radiograph dated November 22, 2012 FINDINGS: Normal prevertebral soft tissues. Preservation of vertebral body height. Marginal osteophyte formation throughout the cervical spine. Mild disc space narrowing at C6/C7. Mild to moderate bilateral C6/C7 neural foraminal narrowing. IMPRESSION IMPRESSION: Degenerative changes in the spine most pronounced at C6/C7 as described. Jet Blade Polisher[facility] Transcribe Date/Time: Apr 02 2021 4:30P Dictated by : DM BRITT MD This examination was interpreted and the report reviewed and electronically signed by: DM BRITT MD on Apr 02 2021 4:32PM EST [facility] Radiology Study observation (narrative) [facility] XR Cervical spine AP and Lat eral and obliqueOrdered By: Ccf Provider on 04-02-2021 [facility] ANES Medina 05-13-2017 ANES POST HNO ID: [id number]: Becky Caicedoervice: AnesthesiologyAuthor Type: AnesthesiologistType: Anesthesia PostOpFiled: 05/13/2017 10:34 AMNote Text:POST ANESTHESIA EVALUATION NOTESERVICE DATE: 05/13/2017SERVICE TIME: 10:33 AMDOB: 1965Vitals: 05/13/1709Temp: 36.4 ?C (97.5 ?F) 36.1 ?C (97 ?F) 05/13/1710BP: 144/85 139/88 136/83 129/73 05/13/1710Pulse: (!) 59 (!) 58 (!) 59 (!) 58 05/13/1710Resp: 18 17 16 16 05/13/1710SpO2: 97% 98% 96% 96%Validated Vital Signs: YesPOST ANES STATUS: No apparent anesthetic complications. The patient isappropriately hydrated with stable respiratory and cardiovascular status.Patient has safe and adequate airway control. The patient has appropriatepain relief and no significant post operative nausea or vomiting. Thepatient has achieved baseline mental status.Further assessment by Anesthesia Service: he needed to have the glidescopefor intubation. Difficult airway added to problem list no complicationsOther Remarks:SIGNATURE: Becky Bermeo MD PATIENT NAME: Alber LenzDATE: May 13, 2017 : 10:33 AM PAGER/CONTACT #: [facility] ANES PREOPon 05-13-2017 ANES PREOP HNO ID: [id number]: Becky Caicedoervice: AnesthesiologyAuthor Type: AnesthesiologistType: Anesthesia PreOpFiled: 05/13/2017 7:00 AMNote Text:REGIONAL ANESTHESIOLOGY DAY OF SURGERY NOTEPATIENT NAME: Alber LenzMRN: [id number]: 1965Procedure(s) (LRB):LAPAROSCOPIC HERNIORRHAPHY, INGUINAL INITIAL BILATERAL (Bilateral)Surgeon(s):Walter Fuentes GuttmanEstimated body mass index is 24.48 kg/(m2) as calculated from thefollowing: Height as of this encounter: 172.7 cm (5' 8). Weight as of this encounter: 73 kg (161 lb).ASA Class: 2Adequate NPO status: YesAllergies:ALLERGIESAl lergen Reactions- Sulfa (Sulfonamide *Airway Assessment: MP 2; Neck ROM: Full ROM without neurologic symptoms;Airway Evaluation: No significant abnormalitiesDentition: Teeth intact4 caps intact on molarsSymptoms of Sleep Apnea: DeniesMost recent lab results:Hemoglobin 15.6 09/18/2016Hematocrit 46.5 09/18/2016Potassium 4.5 09/18/2016Platelet Count 257 09/18/2016Creatinine 1.03 09/18/2016EKG:Normal stress echo from 2012Vitals: BP: 115/72Pulse: (!) 54Resp: 16Temp: 36.4 ?C (97.5 ?F)TempSrc: Temporal ArterySpO2: 97%Weight: 73 kg (161 lb)Height: 172.7 cm (5' 8)Previous Anesthesia: No history of adverse event and delayed emergenceafter colonoscopy Family history of anesthetic problems: NoneAdditional Physical Exam:Lungs: Lungs clear to auscultation. Good diaphragmatic excursion.Cardiac: Normal S1 and S2; no rubs, no murmurs and no gallopsAdditional pertinent findings: N/AOther Medical Problems/ Important Considerations:Denies chest pain and SOB with exertion.Chronic Beta Marya medication administered within 24 hours: N/AAnesthetic risks, benefits, alternatives, personnel and consent discussed:YesPatient agrees to proceed: YesBlood Products: Not anticipated for this procedureAnesthetic Plan: General ETT; Standard ASA MonitorsPain Management Plan: Parenteral or OralEPIC Chart ReviewACTIVE PROBLEM LISTSmokerGerd Without EsophagitisMixed HyperlipidemiaAllergic Rhinitis Due to PollenDegenerative Arthritis of FingerElevated Fasting Blood SugarErectile DysfunctionRight Inguinal HerniaScreening for Colon CancerInguinal HerniaPAST MEDICAL HISTORYDiagnosis Date- Allergic rhinitis due to pollen 05/22/2015- Family history of [place] (my[place] infarction) 05/22/2015 Dad and Brother- GERD without esophagitis 05/22/2015- Mixed hyperlipidemia 05/22/2015- Restless legs syndrome (RLS) 05/28/2007- Smoker 05/22/2015 Started at age 15 up to 1 PPD- SnoringPAST SURGICAL HISTORYProcedure Laterality Date- COLONOSCOP W/ OR W/O [facility] SPEC 08/14/14 Colonoscopy, recheck 5 yrs- REPAIR INGUINAL HERNIA Bilateral 08/1963FAMILY HISTORYProblem Relation Age of Onset- Diabetes Father- Coronary Artery Disease Father 60's- Lipids Father- Coronary Artery Disease Brother late 30's- Diabetes Mother- Lipids Mother- Stroke Mother- Hypertension Brother- Lipids Brother- Lipids Sister- Seizures Brother- Obesity Brother- Thyroid BrotherSocial History:Social HistorySubstance Use Topics- Smoking status: Former Smoker Packs/day: 1.00 Years: 22.00 Types: Cigarettes Quit date: 04/03/2017- Smokeless tobacco: Never Used- Alcohol use 0.0 oz/week Comment: very rarelyNo current facility-administered medications on file prior to encounter.Current Outpatient Prescriptions on File Prior to Encounter:atorvastatin (LIPITOR) 10 mg tablet Take 1 tablet by mouth daily atbedtime. For cholesterol.ranitidine (ZANTAC) 150 mg tablet Take 1 tablet by mouth twice daily.Inpatient medications reviewed in [facility].I have interviewed and examined the patient. I have reviewed the medicalrecord and/or the pre-anesthesia evaluation, pertinent labs, and testresults.Significant changes in the patient's condition since the History andPhysical, not otherwise documented in primary service progress notes: NoThis contains updated information obtained within 48 hours ofSurgery/Procedure.SIGN ATURE: Becky Bermeo MD PATIENT NAME: Alber LenzDATE: May 13, 2017 : 6:58 AM PAGER/CONTACT #: [facility] BRIEF OP NOTon 05-13-2017 BRIEF OP NOT HNO ID: [id number]: Shahida Beeervice: General SurgeryAuthor Type: PhysicianType: Brief Op NoteFiled: 05/13/2017 9:19 AMNote Text:BRIEF OPERATIVE NOTATION FOR SURGICAL PROCEDURE.Alber Henderson Yoanna 1965 [id number] maleLOG ID: [id number]/Procedure Date: 05/13/2017Incision/Proce dure Start Time: 8:08 AMIncision Close/Procedure End Time: 9:14 AMSurgeon(s)/Pro[address]i [address](s) and Big Data Engineer(s):Surgeon(s) and Role: * Shahida Walker - PrimaryRegistered Nurse Data Conversion Operator: Kerrie (Rn) DAYANA KingREFERRING PHYSICIAN:OutpatientDEPT : ZULEIMA PROVIDER: Justus POS:2S4=LNOSBNNHFFOXMMZX ESIA: GeneralASA CLASS: 2 - mildDIAGNOSIS: bilateral inguinal herniaPROCEDURE: laparoscopic bilateral inguinal hernia repair with mesh - 44659w 2-000IVF: 1600EBL: 15Specimens: noneADDITIONAL DIAGNOSES:FINDINGS: bilateral direct inguinal herniaCOMPLICATIONS: NonePMHx -PAST MEDICAL HISTORYDiagnosis Date- Allergic rhinitis due to pollen 05/22/2015- Family history of [place] (my[place] infarction) 05/22/2015 Dad and Brother- GERD without esophagitis 05/22/2015- Mixed hyperlipidemia 05/22/2015- Restless legs syndrome (RLS) 05/28/2007- Smoker 05/22/2015 Started at age 15 up to 1 PPD- SnoringCOMORBIDITIES - NonePost Op Occurrences - NoneWound Classification - CleanOperative note dictated in the dictation system. - [id number] Walker MD [facility] HISTORY PHYSICALon 7 HISTORY PHYSICAL HNO ID: [id number]: Shahida Barriosice: General SurgeryAuthor Type: PhysicianType: HANDPFiled: 05/13/2017 7:36 AMNote Text:HISTORY AND PHYSICAL?Alber Henderson Yoanna1965??REFER RING PHYSICIAN: Dwayne Mccullough MD?CHIEF COMPLAINT: Consult (Rt inguinal hernia)?HPI: Alber is a 51 year old male with a complaint of a bulge anddiscomfort in his right inguinal region. The patient notes discomfort inthis area with lifting and coughing. The symptoms have increased, overthe past 2 weeks.?The patient notes no symptoms of bowel obstruction and denies nausea orvomiting.The patient was seen by his primary care physician who felt the patienthas a hernia. 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 He alsonoted he moved multiple times of gravel a few weeks ago. He notes nodiscomfort in the left side. He does smoke one pack of cigarettes perday. He also has a dear Chava. He had bilateral inguinal herniasrepaired when he was a in [facility]?The patient is being seen by me today at the request of Dr. Dov MD for my opinion and advice regarding right inguinal pain.?? PAST?MEDICAL?HISTORY PAST MEDICAL HISTORYDiagnosis Date- Allergic rhinitis due to pollen 05/22/2015- Family history of [place] (my[place] infarction) 05/22/2015? Dad and Brother- GERD without esophagitis 05/22/2015- Mixed hyperlipidemia 05/22/2015- Restless legs syndrome (RLS) 05/28/2007- Smoker 05/22/2015? Started at age 15 up to 1 PPD- Snoring ??? PAST?SURGICAL?HISTORYPAS T SURGICAL HISTORYProcedure Laterality Date- COLONOSCOP W/ OR W/O [facility] SPEC ? 08/14/14? Colonoscopy, recheck 5 yrs- FECAL OCCULT BLOOD TEST ? 02/11/2917? negative- REPAIR INGUINAL HERNIA Bilateral 08/1965??? CURRENT?MEDICATIONS ?Current Outpatient Prescriptions:atorvastat in (LIPITOR) 10 mg tablet Take 1 tablet by mouth daily atbedtime. For cholesterol.Fenofibrate (LOFIBRA) 160 mg tablet Take 1 tablet by mouth once daily.ranitidine (ZANTAC) 150 mg tablet Take 1 tablet by mouth twice daily.levoFLOXacin (LEVAQUIN) 500 mg tablet Take 1 tablet by mouth once daily.?No current facility-administered medications for this visit.?ALLERGIES: Chantix [Varenicline]; Sulfa (Sulfonamide Antibiotics)?PERSONAL HISTORY: SOCIAL?HISTORY Social History Marital status: Spouse name: Years of education: Number of children:?Social History Main Topics Smoking status: Former Smoker Packs/day: 1.00 Years: 22.00 Types: Cigarettes Quit date: 06/01/2016 Alcohol use: Yes 0.0 oz/week Comment: very rarely Drug use: No Sexual activity: Yes Partners with: Female??FAMILY HISTORY: FAMILY?HISTORYFAMILY HISTORYProblem Relation Age of Onset- Diabetes Father ?- Coronary Artery Disease Father ?? ? 60's- Coronary Artery Disease Brother ?? ? late 30's- Diabetes Mother ?- Hypertension Brother ?- Lipids Mother ?- Lipids Father ?- Lipids Brother ?- Lipids Sister ?- Stroke Mother ?- Seizures Brother ?- Obesity Brother ?- Thyroid Brother ???REVIEW OF SYMPTOMS: The review of systems data was entered by the nurse and reviewed by me?There are no exam notes on file for this visit.?PHYSICAL EXAMINATION:?General: The patient is 51 year old male, well nourished, well hydratedin no acute distress. The patient is oriented to time, place, and person.?VITALS: Blood pressure 112/62, pulse (!) 56. There is no height or weighton file to calculate BMI.?HEENT: Normal cephalic, ataumatic, pupils are equally round, sclera areanicteric, mucous membranes are moist, oropharynx is clear. Neck has nomasses, asymmetry or lymphadenopathy. Thyroid is unremarkable.?Respirator y: Clear to auscultation and percussion. Normal respiratoryexcursion and pattern.?Cardiac: Examination is regular rate and rhythm.?Abdominal exam: Soft, nontender, with no palpable masses. Nohepatosplenomegaly. A palpable right inguinal hernia that small tomoderate in size and reducible. A palpable likely smaller left inguinalhernia. No umbilical hernias?Rectal exam: exam deferred?Extremities: no clubbing, cyanosis or edema. No adenopathy.?Other:??LABO RATORY VALUES: As Noted?RADIOLOGIC STUDIES: As Noted?AssessmentIMPRESSI ON: bilateral inguinal hernias?PLAN: My plan is to perform a laparoscopic bilateral inguinal herniarepair with mesh. The planned surgical procedure was discussedextensively with the patient. The risks, benefits, anticipated outcomesand possible complications were mentioned. Alber avilaands that allhernia repair surgery has a chance of recurrence and/or chronic postoperative pain. My staff has also explained the procedure inunderstandable terms and the patient was given the option to take printedmaterial concerning the planned procedure. The patient had theopportunity to ask questions concerning the planned procedure. Thepatient freely consents to the planned procedure.?All tobacco/nicotine use needs to be completely stopped at least 4 weeksprior to surgery and not used in any form for 8 weeks following surgerydue to nicotine's prevention of appropriate wound healing?My findings have been communicated to Dr. Dwayne Mccullough MD via sharedmedical record. This note will be forwarded to Dr. Dwayne Mccullough MD.???Diagnoses: (K40.20) Bilateral inguinal hernia without obstruction organgrene, recurrence not specified (primary encounter diagnosis)?Anticipated CPT Code: laparoscopic [facility]-000?Anticipated Anesthetic: General?Patient weight: Blood pressure 112/62, pulse (!) 56. BMI: There is noheight or weight on file to calculate BMI.?Planned antibiotic: Ancef 2gm IVPB motion picture equipment supervisor to OR?SCDs needed - Yes??Return to Clinic: The patient is instructed to follow-up with me when allnicotine products have been completely stopped for at least 2 weeks.? Shahida Walker MD [facility] NURSING PROGon 05-13-2017 NURSING PROG HNO ID: [id number]: Kallie Parkinson) HOSSEIN Masterservice: (none)Author Type: Registered NurseType: Nursing Progress NoteFiled: 05/13/2017 6:19 AMNote Text:PRE OP LEARNING ASSESSMENTPROCEDURE/SURG RENNY: SURGERY: Laparoscopic Bilateral Hernia RepairREADINESS TO LEARNCOGNITIVE ABILITY: Alert and orientedMOTIVATION TO LEARN: EagerInterestedFAMILY SUPPORT: None - Unavailable/disintereste dPATIENT LEARNS BEST BY: Verbal InstructionFACTORS AFFECTING LEARNING: NonePHYSICAL LIMITATIONS AFFECTING LEARNING: NoneElectronically Signed By: Kallie Masters RN In Department: [facility] OPERATIVE NOon 05-13-2017 OPERATIVE NO HNO ID: [id number]: Shahida Beeervice: General SurgeryAuthor Type: PhysicianType: Operative ReportFiled: 05/14/2017 7:20 AMNote Text:[facility]- Operative ReportALBER LENZ EDOB: 1965 AGE: 51 SEX: MMRN: [id number] ACCTNUM: [id number] SVC: GENS LOCATION: [address] PHYSICIAN: Shahida Walker M.D.DATE OF PROCEDURE: 05/13/2017SURGEON: Shahida Walker M.D.FIELD SERVICE ANALYST: Guru HayesANESTHESIA: General endotracheal.PREOPERATIV E DIAGNOSIS(ES): Bilateral inguinal hernia.POSTOPERATIVE DIAGNOSIS(ES): Bilateral direct inguinal hernias.NAME OF OPERATION: Laparoscopic bilateral inguinal hernia repair usingBard 3DMax Mesh, medium right, reference number [id number], lot [id number], expires 02/04/2022; and on the left, medium left, Bard 3DMaxMesh, reference number [id number], lot number [id number], expires 03/14/2022.INDICATIONS:E STIMATED BLOOD LOSS: 15 cc.COMPLICATIONS: None.SPECIMENS: None.URINE OUTPUT: 100 cc and was clear at the conclusion of the case.LOG ID NUMBER: [id number].START TIME: 08:08.END TIME: 09:14.ASA: 2.IV FLUIDS: 1600 cc.DISPOSITION: The patient taken to PACU in stable condition.FINDINGS: Bilateral direct inguinal hernias.PROCEDURE: The patient was brought to the operative suite after sign-inwas performed in the holding area. Sign-in was performed verifying thepatient, site, procedure, position, bilaterality of the inguinal hernias,and allergies. The patient has an allergy to sulfa. He received 2 g ofAncef and sequential compression device was placed. Following inductionof general anesthetic, which was somewhat challenging due to an anteriorairway, the patient's abdomen was prepped and draped in usual fashionafter a Gomez catheter was placed. Following this, time-out wasperformed verifying the patient, site, procedure, position. Localanesthetic was injected above the umbilicus. Incision made. Dissectioncarried down to the fascia, 2 stay sutures were placed on the fascia. The incision was made to fascia of the peritoneum under visualization.Raquel trocar was inserted through a stay suture and pneumoperitoneum to15 mm was insufflated. Three 5-mm ports were placed in the paramedianposition. Visual inspection revealed bilateral direct inguinal hernias.SonoSite harmonic energy device was used to score the peritoneum andpreperitoneal dissection was performed on the right side, down to thepubic tubercle, Smooth's ligaments, the transversus arch. The hernia sacwas fully reduced. The peritoneum was reduced off the cord structuresand dissected upwards, so there was good positioning of the mesh lyingflat and dissection was carried out lateral, superiorly and inferiorly.Once this was adequately dissected, the Bard 3DMax Light Mesh was placedinto the preperitoneal space, overlapping the defect very nicely, securedwith ProTack tacking device to Smooth's ligament and the pubic tubercle,then a SorbaFix tacking device for the transversus arch. The peritoneumwas closed with a running 0 V- Loc suture. The same procedure wasperformed for the left side. Following this, an 0 Maxon igeovo-lj-xrnogtidqkr was placed on the umbilical port site defect. The urine was notedto be clear at the conclusion of the case, the 5 ports under directvisualization. Pneumoperitoneum was released and then the umbilicaltrocar was removed. The umbilical fascia was secured. The skin wasclosed with 4-0 Biosyn subcuticular suture. Gomez catheter was removed.The patient was extubated, brought to the recovery room in stablecondition.Shahida Walker M.D.General SurgeryRG:[id number]: 05/13/2017 09:19:40T: 05/13/2017 13:56:54Job #: [id number] [facility] PLAN OF CAREon 05-13-2017 PLAN OF CARE HNO ID: [id number]: Jyoti Howard (Muck Miner)Service: (none)Author Type: TechnicianType: Plan of CareFiled: 05/13/2017 9:59 AMNote Text:[employer]ER BEDSIDE DELIVERY SURVEY1. Patient to use [facility] Bedside Delivery - YES2. If fax, patient would like us to fax prescriptions to Pharmacy ofchoice a. Pharmacy: b. Location: c. Phone:3. Insurance card on file - YES4. [facility]IV[facility] SERVICEPatient Name: Alber LenzMRN: [id number] marked outpatient medications were Filled at: [place] and delivered tothe patient's bedside to pharm p/uMedication ListSTART taking these medicationsX oxyCODONE-acetaminophen 5-325 mg tabletCommonly known as: PERCOCETTake 1 tablet by mouth every 6 hours as needed for Pain for up to 7 days.CONTINUE taking these medications atorvastatin 10 mg tabletCommonly known as: LIPITORTake 1 tablet by mouth daily at bedtime. For cholesterol. Fenofibrate 160 mg tabletCommonly known as: LOFIBRATake 1 tablet by mouth once daily. ranitidine 150 mg tabletCommonly known as: ZANTACTake 1 tablet by mouth twice daily.Jyoti Howard (Muck Miner)PAGER: [phone] 2016 9:59 AM [facility] NURSING PROGon 05-12-2017 NURSING PROG HNO ID: [id number]: HOSSEIN Delvalle Rnervice: (none)Author Type: Registered NurseType: Nursing Progress NoteFiled: 05/12/2017 7:33 AMNote Text:PACC Nurse Progress NoteHistory AND Physical:PACC Visit Date: 05/01/17Labs Within Last 6 Months:N/AImaging Within Last 12 Months:N/ACardiac Testing:N/ARisk Assessment:N/AAnesthesia Review:N/ANarrative:N/AP re-op Considerations:N/AChart Check:Chichi Bhakta 2016 7:33 AM [facility] HOSPon 02-20-2017 HOSP Patient:Vikash Lenz iebisi EMRN: Height:5' 8.5(1.74 m)Weight:166 lb 6.4 oz (75.479 kg)Outpatient Medications as of 05/13/17:atorvastatin (LIPITOR) 10 mg tabletranitidine (ZANTAC) 150 mg tabletFenofibrate (LOFIBRA) 160 mg tabletAdmission/Clinic Administered Medications as of 05/13/17:lactated ringers infusionceFAZolin 2 g in dextrose (iso-osmotic) 100 mL (ANCEF, KEFZOL)lactated ringers infusionmeperidine (PF) 12.5 mg injection (DEMEROL)fentaNYL 50 mcg/mL 50 mcg injection (SUBLIMAZE)Problem List:Smoker [F17.200]GERD without esophagitis [K21.9]Mixed hyperlipidemia [E78.2]Allergic rhinitis due to pollen [J30.1]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):Maria Antonia Lima LPN 04/28/2017 1:42 PM Signedfmla paperwork completed and signed. 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 Normal [facility] Vital Signs Date Time Vital Sign Value Performing Clinician Faci lity 03-14-2024 15:45-0400 Body mass index (BMI) [Ratio] 27.48 kg/m2 [employer] Work Phone: [facility] 03-14-2024 15:45-0400 Body temperature 98.71 [degF] Datoraman Vive Uniquegg PA Work Phone: [facility] 03-14-2024 15:45-0400 Body weight 78.4 kg [employer] PA Work Phone: [facility] 03-14-2024 15:45-0400 Diastolic blood pressure 60 mm[Hg] Oportunista PA Work Phone: [facility] 03-14-2024 15:45-0400 Heart rate 78 /min Oportunista PA Work Phone: [facility] 03-14-2024 15:45-0400 Respiratory rate 16 /min Oportunista PA Work Phone: [facility] 03-14-2024 15:45-0400 SaO2% (BldA) [Mass fraction] 94 % Caitlin Sierra PA Work Phone: [facility] 03-14-2024 15:45-0400 Systolic blood pressure 110 mm[Hg] Caitlin Sierra PA Work Phone: [facility] 03-08-2024 15:34-0400 Body mass index (BMI) [Ratio] 26.99 kg/m2 Nirav Moomaw PIT HOIST OPERATOR.PARTS DATA WRITER Work Phone: [facility] 03-08-2024 15:34-0400 Body temperature 97.81 [degF] Nirav Moomaw PIT HOIST OPERATOR.PARTS DATA WRITER Work Phone: [facility] 03-08-2024 15:34-0400 Body weight 77 kg Nirav Moomaw PIT HOIST OPERATOR.PARTS DATA WRITER Work Phone: [facility] 03-08-2024 15:34-0400 Diastolic blood pressure 81 mm[Hg] Nirav Moomaw PIT HOIST OPERATOR.PARTS DATA WRITER Work Phone: [facility] 03-08-2024 15:34-0400 Heart rate 77 /min Nirav Moomaw PIT HOIST OPERATOR.PARTS DATA WRITER Work Phone: [facility] 03-08-2024 15:34-0400 Respiratory rate 18 /min Nirav Moomaw PIT HOIST OPERATOR.PARTS DATA WRITER Work Phone: [facility] 03-08-2024 15:34-0400 SaO2% (BldA) [Mass fraction] 97 % Nirav Moomaw PIT HOIST OPERATOR.PARTS DATA WRITER Work Phone: [facility] 03-08-2024 15:34-0400 Systolic blood pressure 126 mm[Hg] Nirav Moomaw PIT HOIST OPERATOR.PARTS DATA WRITER Work Phone: [facility] 08-05-2023 16:54-0400 Diastolic blood pressure 82 mm[Hg] Dwayne Mccullough MD Work Phone: [facility] 08-05-2023 16:54-0400 Systolic blood pressure 132 mm[Hg] Dwayne Mccullough MD Work Phone: [facility] 03-20-2024 16:31-0400 Body height 168.9 cm Dwayne Mccullough MD Work Phone: [facility] 08-05-2023 16:31-0400 Body weight 77.11 kg Dwayne Mccullough MD Work Phone: [facility] 08-05-2023 16:31-0400 Heart rate 72 /min Dwayne Mccullough MD Work Phone: [facility] 08-05-2023 16:31-0400 Respiratory rate 16 /min Dwayne Mccullough MD Work Phone: [facility] 07-10-2023 07:17-0500 Body temperature 97.11 [degF] Dwayne Ryder PIT HOIST OPERATOR.PARTS DATA WRITER Work Phone: [facility] 07-10-2023 07:17-0500 Body weight 78.93 kg Dwayne Ryder PIT HOIST OPERATOR.PARTS DATA WRITER Work Phone: [facility] 07-10-2023 07:17-0500 Diastolic blood pressure 85 mm[Hg] Dwayne Ryder PIT HOIST OPERATOR.PARTS DATA WRITER Work Phone: [facility] 07-10-2023 07:17-0500 Heart rate 76 /min Dwayne Ryder PIT HOIST OPERATOR.PARTS DATA WRITER Work Phone: [facility] 07-10-2023 07:17-0500 Respiratory rate 20 /min Dwayne Ryder PIT HOIST OPERATOR.PARTS DATA WRITER Work Phone: [facility] 07-10-2023 07:17-0500 SaO2% (BldA) [Mass fraction] 97 % Dwayne Ryder PIT HOIST OPERATOR.PARTS DATA WRITER Work Phone: [facility] 07-10-2023 07:17-0500 Systolic blood pressure 132 mm[Hg] Dwayne Ryder PIT HOIST OPERATOR.PARTS DATA WRITER Work Phone: [facility] 12-30-2021 16:09-0400 Body weight 79.38 kg Kae Ferro PIT HOIST OPERATOR.PARTS DATA WRITER Work Phone: [facility] 12-30-2021 16:09-0400 Diastolic blood pressure 90 mm[Hg] Kae Haagen PIT HOIST OPERATOR.PARTS DATA WRITER Work Phone: [facility] 12-30-2021 16:09-0400 Heart rate 76 /min Kae Haagen PIT HOIST OPERATOR.PARTS DATA WRITER Work Phone: [facility] 12-30-2021 16:09-0400 Respiratory rate 18 /min Kae Haagen PIT HOIST OPERATOR.PARTS DATA WRITER Work Phone: [facility] 12-30-2021 16:09-0400 SaO2% (BldA) [Mass fraction] 96 % Kae Haagen PIT HOIST OPERATOR.PARTS DATA WRITER Work Phone: [facility] 12-30-2021 16:09-0400 Systolic blood pressure 138 mm[Hg] Kae Haagen PIT HOIST OPERATOR.PARTS DATA WRITER Work Phone: [facility] 12-18-2021 15:28-0400 Body temperature 98.71 [degF] Bree Athy PA-C Work Phone: [facility] 12-18-2021 15:28-0400 Body weight 78.93 kg Bree Athy PA-C Work Phone: [facility] 12-18-2021 15:28-0400 Diastolic blood pressure 72 mm[Hg] Bree Athy PA-C Work Phone: [facility] 12-18-2021 15:28-0400 Heart rate 78 /min Bree Athy PA-C Work Phone: [facility] 12-18-2021 15:28-0400 Respiratory rate 16 /min Bree Athy PA-C Work Phone: [facility] 12-18-2021 15:28-0400 SaO2% (BldA) [Mass fraction] 96 % Bree Athy PA-C Work Phone: [facility] 12-18-2021 15:28-0400 Systolic blood pressure 122 mm[Hg] Bree Athy PA-C Work Phone: [facility] Encounters Encounter Date Encounter Type Care Provider Facility Start: 02-07-2025 End: 02-07-[address] Bairon Knapp MD Work Phone: -Laboratory Phy Office 3rd Flr Start: 02-07-2025 End: 02-07-[address] Bairon Knapp MD -Laboratory Phy Office 3rd Flr Start: 02-07-2025 End: 02-07-[facility] Start: 10-17-[address] [facility] Start: 10-12-2024 End: 11-03-2024 ambulatory Dwayne Mccullough MD Work Phone: [place] Comment on above: Diabetes Start: 10-03-2024 End: 10-03-2024 ambulatory Dwayne Mccullough MD Work Phone: [place] Start: 08-04-2024 End: 08-04-[address] Bairon Knapp MD Work Phone: [facility] Work Phone: Start: 08-04-2024 End: 08-04-[address] Bairon Knapp MD -Laboratory Work Phone: Start: 08-03-2024 End: 08-04-[address] Bairon Knapp MD Work Phone: [facility] Work Phone: Start: 08-03-2024 End: 08-03-[address] Bairon Knapp MD -Laboratory, Phy Office 3rd Flr Start: 08-03-2024 End: 08-03-2024 [facility] Start: 03-14-2024 End: 03-14-2024 ambulatory DWAYNE MCCULLOUGH Facility:[facility] Start: 03-14-2024 End: 03-14-2024 Patient encounter procedure Caitlin OTT Work Phone: [facility] Comment on above: Bacterial sinusitis (Primary Dx); Subacute cough Start: 03-14-2024 End: 03-14-2024 Subsequent hospital visit by physician [facility] Work Phone: Radiology Comment on above: Subacute cough [R05. 2] Start: 03-08-2024 End: 03-08-2024 ambulatory DWAYNE MCCULLOUGH Facility:[facility] Start: 03-08-2024 End: 03-08-2024 Patient encounter procedure Nirav Valladares PARTS DATA WRITER Work Phone: [facility] Comment on above: Bacterial sinusitis (Primary Dx) Start: 12-02-2023 Telephone encounter Dwayne Mccullough MD Work Phone: [facility] Comment on above: Coding Questions Start: 11-09-2023 End: 11-09-2023 Nursing evaluation of patient and report Mi Nurse Work Phone: [facility] Comment on above: Need for vaccination (Primary Dx) Start: 11-09-2023 End: 11-09-2023 ambulatory DWAYNE MCCULLOUGH Facility:[facility] Start: 08-05-2023 End: 08-05-2023 Patient encounter procedure Dwayne Mccullough MD Work Phone: [facility] [place] Comment on above: Well adult exam (Ashley vipin Dx); Hyperlipidemia, mixed; Type 2 diabetes mellitus without complication, without long-term current use of insulin (HCC); Subclinical hypothyroidism; GERD without esophagitis; Smoker; Foot callus; Need for vaccination Start: 08-05-2023 ambulatory Dwayne christian MD Work Phone: [facility] [place] Comment on above: Current medications Start: 08-05-2023 End: 08-05-2023 Patient encounter status Dwayne Mccullough MD Work Phone: [facility] Work Phone: Start: 07-10-2023 End: 07-10-2023 Office outpatient visit 25 minutes Dwayne Ryder APRN.PARTS DATA WRITER Work Phone: [facility] Comment on above: Lower respiratory tr act infection (Primary Dx) Start: 04-21-2023 Telephone encounter Dwayne Mccullough MD Work Phone: [facility] [place] Comment on above: Orders Start: 07-14-2022 Telephone encounter Dwayne Mccullough MD Work Phone: [facility] [place] Comment on above: Patient Question Start: 07-02-2022 Patient encounter status Shelia Mccullough MD Work Phone: [facility] Work Phone: Start: 12-30-2021 End: 12-30-2021 Office outpatient visit 25 minutes Kae Ferro PARTS DATA WRITER Work Phone: [facility] [place] Comment on above: Type 2 diabetes inderjit itus without complication, without long- term current use of insulin (HCC) (Primary Dx); Thrush; Mixed hyperlipidemia; Bee sting, undetermined intent, sequela; Hypertriglyceridemia; Subclinical hypothyroidism Start: 12-24-2021 Telephone encounter Dwayne Mccullough MD Work Phone: [facility] [place] Comment on above: Patient Question Start: 12-18-2021 End: 12-18-2021 Subsequent hospital visit by physician Adriana [facility] [place] Work Phone: Radiology Comment on above: Left hand pain [M79. 642] Start: 12-18-2021 End: 12-18-2021 Patient encounter procedure Bree Peterson PA-C Work Phone: [facility] Comment on above: Encounter for screen ing for COVID-19 (Primary Dx); Left hand pain Start: 12-14-2021 End: 12-14-2021 Emergency department patient visit TAMEKA LEIVA [facility] Start: 08-12-2021 End: 08-12-2021 ambulatory Pako Payne PT Work Phone: [facility] Comment on above: Neck pain (Primary D x) Start: 04-02-2021 End: 04-02-2021 Subsequent hospital visit by physician Adriana [facility] [place] [facility] Work Phone: Radiology Comment on above: Neck pain [M54.2] Start: 05-13-2017 End: 05-13-2017 Ambulatory [facility] Procedures Date Procedure Procedure Detail Performing Clinician Start: 03-14-2024 Radiologic exam ches t 2 views Caitlin OTT Work Phone: Start: 12-18-2021 Radex hand minimum 3 views Bree Peterson PA-C Work Phone: Start: 04-02-2021 Radex spine cervical 4 or 5 views Kae Ferro APRN.PARTS DATA WRITER Work Phone: Start: 03-11-2021 Adult depression scr eening assessment Pako Payne PT Work Phone: Start: 02-13-2020 Colonoscopy Pako Aragon as PT Work Phone: Plan of Treatment Date Care Activity Detail Author Start: 07-28-2038 RSV Vaccine (1 - 1-dose 75+ series) RSV Vaccine (1 - 1-dose 75+ series) [facility] Start: 08-04-2033 Urine microalbumin profile DTaP,Tdap,Td Vaccine (4 - Td or Tdap) [facility] Start: 12-14-2031 Urine microalbumin profile DTaP,Tdap,Td Vaccine (3 - Td or Tdap) [facility] Start: 08-04-2028 Prostate specific antigen measurement Prostate Cancer Screening Discussion [facility] Start: 03-11-2027 PROSTATE CANCER SCREENING DISCUSSION PROSTATE CANCER SCREENING DISCUSSION [facility] Start: 03-11-2027 Prostate specific antigen measurement Prostate Cancer Screening Discussion [facility] Start: 02-12-2025 Colonoscopy COLONOSCOPY [facility] Start: 02-12-2025 COLORECTAL CANCER SCREENING COLORECTAL CANCER SCREENING [facility] Start: 02-12-2025 Screening for malignant neoplasm of colon [facility] Start: 01-16-2025 Influenza vaccination Influenza Vaccine (Season Ended) [facility] Start: 08-10-2024 End: 08-10-2024 Patient encounter procedure 08/10/2024 3:20 PM EDT Office Visit [facility] [address] [place] [id number] Dwayne Mccullough MD [address] [place] [id number] [facility] Comment on above: Physical Start: 08-04-2024 Annual PCP Team Chronic Disease Visit Annual PCP Team Chronic Disease Visit [facility] Start: 08-04-2024 Covid-19 Vaccine ( season) Covid-19 Vaccine (2022- season) [facility] Comment on above: Postponed from 01/16/2023 (Declined at t his time) Start: 08-04-2024 Diabetic foot examination Diabetic Foot Exam [facility] Start: 08-04-2024 RSV Vaccine (1 - 1-dose 60+ series) RSV Vaccine (1 - 1-dose 60+ series) [facility] Comment on above: Postponed from 2023 (Insurance Cov erage) Start: 07-23-2024 Hepatitis B screening Urine Albumin:Creatinine Ratio [facility] Start: 07-23-2024 Hepatitis B surface antibody level LDL Cholesterol [facility] Start: 05-17-2024 Behavioral Health Screening Behavioral Health Screening [facility] Comment on above: Postponed from 05/18/2023 (Declined at t his time) Start: 05-17-2024 Depression Assessment Depression Assessment [facility] Comment on above: Postponed from 05/18/2023 (Declined at t his time) Start: 01-24-2024 Hemoglobin A1c measurement HbA1C [facility] Start: 01-17-2024 Covid-19 Vaccine ( season) Covid-19 Vaccine ( season) [facility] Start: 01-17-2024 Influenza vaccination [facility] Start: 11-15-2023 Influenza vaccination Influenza Vaccine (#1) [facility] Comment on above: Postponed from 01/16/2023 (Declined at t his time) Start: 10-04-2023 Hzv zoster vacc recombinant adjuvanted im njx ZOSTER VACCINE, RECOMBINANT (SHINGRIX) Immunization/Injection Routine Need for vaccination Well adult exam Expected: 10/04/2023 (Approximate) [facility] Work Phone: Comment on above: Expected: 10/04/2023 (Approximate) Start: 09-30-2023 Shingrix Vaccine (2 of 2) Shingrix Vaccine (2 of 2) [facility] Start: 07-24-2023 End: 10-23-2023 ALBUMIN/CREAT RATIO RND UR ALBUMIN/CREAT RATIO RND UR Lab Routine Type 2 diabetes mellitus without complication, without long-term current use of insulin (HCC) Expected: 07/24/2023, Expires: 10/23/2023 [facility] Work Phone: Comment on above: Expected: 07/24/2023, Expires: Start: 07-24-2023 End: 10-23-2023 CBC W Auto Differential panel - Blood CBC + DIFF Lab Routine Type 2 diabetes mellitus without complication, without long-term current use of insulin (HCC) Expected: 07/24/2023, Expires: 10/23/2023 [facility] Work Phone: Comment on above: Expected: 07/24/2023, Expires: Start: 07-24-2023 End: 10-23-2023 Comprehensive metabolic 2000 panel - Serum or Plasma COMP METABOLIC PANEL Lab Routine Hyperlipidemia, mixed Type 2 diabetes mellitus without complication, without long-term current use of insulin (HCC) Expected: 07/24/2023, Expires: 10/23/2023 [facility] Work Phone: Comment on above: Expected: 07/24/2023, Expires: Start: 07-24-2023 End: 10-23-2023 Hemoglobin A1c in Blood HGB A1C Lab Routine Type 2 diabetes mellitus without complication, without long-term current use of insulin (HCC) Expected: 07/24/2023, Expires: 10/23/2023 [facility] Work Phone: Comment on above: Expected: 07/24/2023, Expires: Start: 07-24-2023 End: 10-23-2023 LIPID PANEL, NONFASTING LIPID PANEL, NONFASTING Lab Routine Hyperlipidemia, mixed Type 2 diabetes mellitus without complication, without long-term current use of insulin (HCC) Expected: 07/24/2023, Expires: 10/23/2023 [facility] Work Phone: Comment on above: Expected: 07/24/2023, Expires: Start: 07-24-2023 End: 10-23-2023 Prostate specific Ag [Mass/volume] in Serum or Plasma PSA/PROSTSPECAG DIAG Lab Routine Screening for prostate cancer Expected: 07/24/2023, Expires: 10/23/2023 [facility] Work Phone: Comment on above: Expected: 07/24/2023, Expires: Start: 07-24-2023 End: 10-23-2023 Thyrotropin [Units/volume] in Serum or Plasma TSH BLD Lab Routine Subclinical hypothyroidism Expected: 07/24/2023, Expires: 10/23/2023 [facility] Work Phone: Comment on above: Expected: 07/24/2023, Expires: Start: 07-24-2023 End: 10-23-2023 Thyroxine (T4) free [Mass/volume] in Serum or Plasma T4 FREE/FREE THYROX Lab Routine Subclinical hypothyroidism Expected: 07/24/2023, Expires: 10/23/2023 [facility] Work Phone: Comment on above: Expected: 07/24/2023, Expires: Start: 07-24-2023 End: 10-23-2023 Urinalysis complete panel - Urine URINALYSIS, WITH MICROSCOPIC Lab Routine Hyperlipidemia, mixed Type 2 diabetes mellitus without complication, without long-term current use of insulin (HCC) Expected: 07/24/2023, Expires: 10/23/2023 [facility] Work Phone: Comment on above: Expected: 07/24/2023, Expires: Start: 07-15-2023 Hepatitis B screening Urine Albumin:Creatinine Ratio [facility] Start: 07-02-2023 3 comp foot exam completed DIABETIC FOOT EXAM [facility] Start: 07-02-2023 ANNUAL PCP TEAM CHRONIC DISEASE VISIT ANNUAL PCP TEAM CHRONIC DISEASE VISIT [facility] Start: 07-02-2023 COVID-19 VACCINE (#1) COVID-19 VACCINE (#1) [facility] Comment on above: Postponed from 01/29/1966 (Declined at t his time) Start: 07-02-2023 Diabetic foot examination Diabetic Foot Exam [facility] Start: 07-02-2023 Influenza vaccination LUNG CANCER SCREENING [facility] Comment on above: Postponed from 07/28/2013 (Declined at t his time) Start: 07-02-2023 SHINGRIX VACCINE (1 of 2) SHINGRIX VACCINE (1 of 2) [facility] Comment on above: Postponed from 07/28/2013 (Insurance Cov erage) Start: 06-16-2023 Hepatitis B surface antibody level LDL CHOLESTEROL [facility] Start: 05-18-2023 Depression Assessment Depression Assessment [facility] Start: 03-18-2023 Glaucoma screening Dilated Retinal Exam [facility] Start: 03-18-2023 Hepatitis C antibody, confirmatory test DILATED RETINAL EXAM [facility] Start: 02-08-2023 Urine microalbumin profile DTAP,TDAP,TD (2 - Td or Tdap) [facility] Start: 01-16-2023 Influenza vaccination Influenza Vaccine (#1) [facility] Start: 12-30-2022 ANNUAL PCP TEAM CHRONIC DISEASE VISIT ANNUAL PCP TEAM CHRONIC DISEASE VISIT [facility] Start: 12-25-2022 Hepatitis B surface antibody level LDL CHOLESTEROL [facility] Start: 12-14-2022 Hemoglobin A1c measurement HbA1C [facility] Start: 12-14-2022 Hemoglobin A1c/Hemoglobin.total in Blood HBA1C [facility] Start: 11-14-2022 Influenza vaccination INFLUENZA (#1) [facility] Comment on above: Postponed from 01/16/2022 (Declined at t his time) Start: 07-01-2022 ANNUAL PCP TEAM CHRONIC DISEASE VISIT ANNUAL PCP TEAM CHRONIC DISEASE VISIT [facility] Start: 06-27-2022 Hemoglobin A1c/Hemoglobin.total in Blood HBA1C [facility] Start: 06-24-2022 Hepatitis B screening URINE ALBUMIN:CREATININE RATIO [facility] Start: 06-01-2022 End: 12-30-2022 Comprehensive metabolic 2000 panel - Serum or Plasma COMP METABOLIC PANEL Lab Routine Type 2 diabetes mellitus without complication, without long-term current use of insulin (HCC) Mixed hyperlipidemia Expected: 06/01/2022, Expires: 12/30/2022 [facility] Work Phone: Comment on above: Expected: 06/01/2022, Expires: Start: 06-01-2022 End: 12-30-2022 Hemoglobin A1c in Blood HGB A1C Lab Routine Type 2 diabetes mellitus without complication, without long-term current use of insulin (HCC) Expected: 06/01/2022, Expires: 12/30/2022 [facility] Work Phone: Comment on above: Expected: 06/01/2022, Expires: 3 Start: 06-01-2022 End: 12-30-2022 Lipid 1996 panel - Serum or Plasma LIPID PANEL BASIC Lab Routine Mixed hyperlipidemia Hypertriglyceridemia Expected: 06/01/2022, Expires: 12/30/2022 [facility] Work Phone: Comment on above: Expected: 06/01/2022, Expires: 3 Start: 06-01-2022 End: 12-30-2022 Thyrotropin [Units/volume] in Serum or Plasma TSH BLD Lab Routine Subclinical hypothyroidism Expected: 06/01/2022, Expires: 12/30/2022 [facility] Work Phone: Comment on above: Expected: 06/01/2022, Expires: 3 Start: 06-01-2022 End: 12-30-2022 Thyroxine (T4) free [Mass/volume] in Serum or Plasma T4 FREE/FREE THYROX Lab Routine Subclinical hypothyroidism Expected: 06/01/2022, Expires: 12/30/2022 [facility] Work Phone: Comment on above: Expected: 06/01/2022, Expires: 3 Start: 04-02-2022 3 comp foot exam completed DIABETIC FOOT EXAM [facility] Start: 03-11-2022 Adult depression screening assessment DEPRESSION SCREENING [facility] Start: 02-19-2022 Hepatitis B surface antibody level LDL CHOLESTEROL [facility] Start: 02-19-2022 Hepatitis C antibody, confirmatory test DILATED RETINAL EXAM [facility] Start: 02-11-2022 PROSTATE CANCER SCREENING DISCUSSION PROSTATE CANCER SCREENING DISCUSSION [facility] Start: 01-16-2022 Influenza vaccination INFLUENZA (#1) [facility] Start: 12-22-2021 Hemoglobin A1c/Hemoglobin.total in Blood HBA1C [facility] Start: 12-18-2021 End: 12-28-2021 SARS-CoV-2 (COVID-19) RNA [Presence] in Respiratory specimen by NAIN with probe detection [facility] Work Phone: Comment on above: Expected: 12/18/2021, Expires: 2 Start: 02-11-2018 FECAL OCCULT BLOOD FECAL OCCULT BLOOD [facility] Start: 02-11-2018 Screening for malignant neoplasm of colon Fecal Occult Blood [facility] Start: 07-28-2013 Influenza vaccination LUNG CANCER SCREENING [facility] Start: 07-28-2013 SHINGRIX VACCINE (1 of 2) SHINGRIX VACCINE (1 of 2) [facility] Start: 07-28-2008 COLOGUARD (FIT-DNA) COLOGUARD (FIT-DNA) [facility] Start: 07-28-[address] COLONOGRAPHY [facility] Start: 07-28-2008 Screening for malignant neoplasm of colon [facility] Start: 07-28-2008 SIGMOIDOSCOPY SIGMOIDOSCOPY [facility] Start: 07-28-1982 HEPATITIS B (1 of 3 - Risk 3-dose series) HEPATITIS B (1 of 3 - Risk 3-dose series) [facility] Start: 07-28-1981 Anxiety Screening Anxiety Screening [facility] Start: 07-28-1981 Depression Screening Depression Screening [facility] Start: 1979 ONE PNEUMOVAX PRIOR TO AGE 65 ONE PNEUMOVAX PRIOR TO AGE 65 [facility] Start: 07-28-1969 PNEUMOCOCCAL (1 - PCV) PNEUMOCOCCAL (1 - PCV) [facility] Start: 07-28-1968 COVID-19 VACCINE (1) COVID-19 VACCINE (1) [facility] Start: 01-29-1964 COVID-19 VACCINE (#1) COVID-19 VACCINE (#1) [facility] Start: 1965 HEPATITIS B (1 of 3 - 3-dose series) HEPATITIS B (1 of 3 - 3-dose series) [facility] Immunizations Immunization Date Immunization Notes Care Provider Fa amalia 11-09-2023 zoster vaccine recombinant Ma Nurse Work Phone: [facility] 08-05-2023 tetanus toxoid, redu radha diphtheria toxoid, and acellular pertussis vaccine, adsorbed Dwayne Mccullough MD Work Phone: [facility] 08-05-2023 zoster vaccine recombinant Dwayne Mccullough MD Work Phone: [facility] 07-02-2022 pneumococcal (PCV20) vaccine, 20 valent (PREVNAR 20) Dwayne Mccullough MD Work Phone: [facility] 03-13-2021 influenza, seasonal, injectable Pako Payne PT Work Phone: [facility] 03-13-2021 influenza virus vaccine, unspecified formulation Dwayne Mccullough MD Work Phone: [facility] 03-30-2019 influenza, seasonal, injectable Pako Payne PT Work Phone: [facility] 02-11-2017 influenza, injectabl e, quadrivalent, contains preservative Pako Payne PT Work Phone: [facility] Work Phone: 01-28-2016 influenza virus vaccine, unspecified formulation Pako Payne PT Work Phone: [facility] Work Phone: 02-08-2013 tetanus toxoid, redu radha diphtheria toxoid, and acellular pertussis vaccine, adsorbed Pako Payne PT Work Phone: [facility] Payers Date Payer Category Payer Private Health Insurance [id number] 2024 Private Health Insurance [id number] 2024 Self-pay 2019 Unknown [employer] PPO [id number] 2019-Present [phone] [address] [place] [address] PPO [id number] 2019 Unknown [id number] 2019 Unknown [id number] 1965 Unknown [id number] Unknown [id number] Unknown [id number] Unknown [id number] Unknown [id number] Worker's Compensation [id number] Social History Date Type Detail Facility Start: 04-03-1995 End: 03-08-2024 Tobacco smoking status NHIS Light tobacco smoker [facility] Start: 04-03-1995 End: 04-03-2017 History of tobacco use Cigarette Smoker [facility] Start: 06-02-2017 End: 07-24-2023 Cigarettes smoked current (pack per day) - Reported 1 [facility] Start: 06-02-2017 End: 03-08-2024 Tobacco use and exposure Smokeless tobacco non-user [facility] Start: 07-01-2021 End: 03-14-2024 Alcohol intake Current drinker of alcohol (finding) [facility] Start: 03-12-2021 History SDOH Alcohol Frequency 2 [facility] Start: 03-12-2021 History SDOH Alcohol Std Drinks 98 [facility] Start: 03-12-2021 History SDOH Social Connections Phone 5 [facility] Start: 03-12-2021 History SDOH Social Connections Membership 1 [facility] Start: 03-12-2021 History SDOH Social Connections Living 3 [facility] Start: 03-12-2021 History SDOH Physica l Activity MPS 15 [facility] Start: 1965 Sex Assigned At Not on file C [facility] Start: 02-13-2021 End: 12-30-2021 Exposure to SARS-CoV-2 (event) Not sure [facility] Start: 03-11-2021 End: 07-24-2023 Social connection and isolation panel [facility] How often do you att end gnosticism or rastafarian services? Patient refused [facility] Do you belong to any clubs or organizations such as gnosticism groups, unions, fraternal or athletic groups, or school groups? Yes [facility] Are you now , , , , never or living with a partner? [facility] How often to you hav e a drink containing alcohol? Monthly or less [facility] Do you feel stress - tense, restless, nervous, or anxious, or unable to sleep at night because your mind is troubled all the time - these days [OSQ] Not at all [facility] (I/We) worried zackary er (my/our) food would run out before (I/we) got money to buy more. Never true [facility] In the past 12 month s, was there a time when you were not able to pay the mortgage or rent on time? No [facility] Tobacco smoking stat [facility] Unknown if ever smoked [facility] Work Phone: Start: 08-12-2024 End: 08-12-2024 Sex Male (finding) [facility] Start: 1965 Sex Assigned At Male [facility] Start: 10-13-[address] [facility] Smokes tobacco daily (finding) [facility] Medical Equipment Procedure Code Equipment Code Equipment Origin al Text Equipment Identifier Dates Mesh 3dmax Mediu m Curve Polypropylene 5x3in Surgical Preform Seal Edge - [id number] Start: 05-13-2017 Mesh 3dmax Mediu m Polypropylene 5x3in Surgical Patch Preform Hernia Sterile - [id number] Start: 05-13-2017 Functional Status Date Assessment Result Facility 12-21-2014 Are you deaf, or do you have serious difficulty hearing No 12/21/2014 9:36 AM Marika Persaud LPN No [facility] 12-21-2014 Are you blind, or do you have serious difficulty seeing, even when wearing glasses No 12/21/2014 9:36 AM Marika Persaud LPN No [facility] 12-21-2014 Do you have serious difficulty walking or climbing stairs No 12/21/2014 9:36 AM Marika Persaud LPN No [facility] 12-21-2014 Do you have difficul ty dressing or bathing No 12/21/2014 9:36 AM Marika Persaud LPN No [facility] 12-21-2014 Because of a physica l, mental, or emotional condition, do you have difficulty doing errands alone such as visiting a physician's office or shopping No 12/21/2014 9:36 AM EDT Marika Jeong LPN No [facility] Mental Status Date Assessment Result Facility 12-21-2014 Because of a physica l, mental, or emotional condition, do you have serious difficulty concentrating, remembering, or making decisions No 12/21/2014 9:36 AM EDT Marika Jeong LPN No [facility] Clinical Notes 05-22-2015 to 10-12-2024 Eros Pss Linda - 10/12/2024 12:32 PM EDTEros Corbett Linda - 10/03/2024 10:58 AM Zachary Calix RT([place]) - 03/14/2024 4:20 PM Caitlin Page PA - 03/14/2024 3:53 PM EDT Note Date & Type Note Facility 10-12-2024 Note HNO ID: [id number] Author: ?, ?, ? Service: ? Author Type: ? Type: Progress Notes Filed: 11/03/2024 13:12 Note Text: Diabetes Outreach Alber Lenz has been identified for clinical review due to having diabetes without a Hemoglobin A1c in the past 1 year. PSS Team - Please contact the patient with the following script: Dwayne Mccullough MD has identified that you are in need of ongoing care of your diabetes and have not had blood work for your diabetes (hemoglobin A1c) in the past year. We would like to assist you in making an appointment to ensure that we control your diabetes and keep you as healthy as possible. Outreach Outcome/Action: Unable to reach patient: Left message Note - if they see another provider, please update their chart. [facility] 10-12-2024 History of Present illness Narrative Diabetes Outreach Alber Lenz has been identified for clinical review due to having diabetes without a Hemoglobin A1c in the past 1 year. PSS Team - Please contact the patient with the following script: Dwayne Mccullough MD has identified that you are in need of ongoing care of your diabetes and have not had blood work for your diabetes (hemoglobin A1c) in the past year. We would like to assist you in making an appointment to ensure that we control your diabetes and keep you as healthy as possible. Outreach Outcome/Action: Unable to reach patient: Left message Note - if they see another provider, please update their chart. documented in this encounter [facility] 10-12-2024 Note Patient Outreach (4C Q) ALBER LENZ ([id number]) 1965 M NFR Date Time Provider Department 10/12/24 DWAYNE MCCULLOUGH 4CQ During your visit today, we recorded the following information about you: Linda Moss 11/03/2024 1:12 PM Signed Diabetes Outreach Alber Beatriz Perlaprudencio has been identified for clinical review due to having diabetes without a Hemoglobin A1c in the past 1 year. PSS Team - Please contact the patient with the following script: Dwayne Mccullough MD has identified that you are in need of ongoing care of your diabetes and have not had blood work for your diabetes (hemoglobin A1c) in the past year. We would like to assist you in making an appointment to ensure that we control your diabetes and keep you as healthy as possible. Outreach Outcome/Action: Unable to reach patient: Left message Note - if they see another provider, please update their chart. Allergies As of Date: 10/12/2024 Noted Allergy Reaction SULFA (SULFONAMIDE ANTIBIOTICS) 01/29/2005 16 - Unknown Comments: Was chewing on matches as a child and has narrowing of throat. Date Reviewed: 03/14/2024 Reviewed by: Alma Montes MA - Fully Assessed Reason for Visit: Diabetes [34] Prescriptions as of 11/03/2024 - Vitamin E, dl, acetate, (VITAMIN E) 400 unit capsule Take 1 capsule by mouth once daily. - Cholecalciferol, Vitamin D3, 250 mcg (10,000 unit) cap Take 1 capsule by mouth once daily. - Ascorbic Acid (VITAMIN C) 1,000 mg tablet Take 1 tablet by mouth once daily. - omeprazole (PRILOSEC) 20 mg capsule Take 1 capsule by mouth daily before breakfast. 1/2 hr before meal. - mv-mn/folic/lutein/herbal 293 (ALIVE MEN'S 50 PLUS MULTIVIT ORAL) Take by mouth. Take one tablet daily - omega-3 fatty acids 1,000 mg cap Take 2 capsules by mouth twice daily. - rosuvastatin (CRESTOR) 10 mg tablet Take 0.5 tablets by mouth daily at bedtime. - cetirizine (ZYRTEC) 10 mg tablet Take 1 tablet by mouth once daily. - aspirin, enteric coated (ASPIRIN, ENTERIC COATED) 81 mg EC tablet Take 1 tablet by mouth once daily. 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] 05/22/2015 Well adult exam [Z00.00] 06/06/2016 Erectile dysfunction [N52.9] 09/18/2016 Screening for colon cancer [Z12.11] 02/06/2017 Difficult airway for intubation [T88.4XXA] 05/13/2017 Family history of early CAD [Z82.49] 08/07/2017 Type 2 diabetes mellitus without complication, *02/18/2021 Neck pain [M54.2] 05/07/2021 Subclinical hypothyroidism [E03.8] 12/30/2021 Hyperlipidemia, mixed [E78.2] 12/30/2021 History of 2019 novel coronavirus disease (COVI*07/02/2022 Screening for prostate cancer [Z12.5] 04/21/2023 Encounter Status:Closed by LINDA MOSS on 11/03/24 [facility] 10-03-2024 Note HNO ID: [id number] Author: ?, ?, ? Service: ? Author Type: ? Type: Progress Notes Filed: 10/03/2024 11:00 Note Text: Diabetes Outreach Alber Lenz has been identified for clinical review due to his diagnosis of Diabetes. They have gaps in care of: Lack of PCP team appointment every 6 months Hemoglobin A1C (%) Date Value 07/24/2023 7.0 06/16/2022 6.9 03/11/2022 6.4 06/24/2021 6.6 02/19/2021 6.5 Based on this review the following interventions will be enacted: Schedule appointment with PCP PSS Team - Please contact the patient with the following scripting Dwayne Mccullough MD has identified that you are in need of ongoing care of your diabetes. We would like to assist you in making an appointment (as above). Our goal is to help you manage your condition and keep you healthy, and regular visits to address this is very important. If you have a provider outside of [facility] we encourage you to follow up with them regularly. If patient is seeing an outside provider, please document in Care Teams. [facility] 10-03-2024 History of Present illness Narrative Diabetes Outreach Alber Lenz has been identified for clinical review due to his diagnosis of Diabetes. They have gaps in care of: Lack of PCP team appointment every 6 months Hemoglobin A1C (%) Date Value 07/24/2023 7.0 06/16/2022 6.9 03/11/2022 6.4 06/24/2021 6.6 02/19/2021 6.5 Based on this review the following interventions will be enacted: Schedule appointment with PCP PSS Team - Please contact the patient with the following scripting Dwayne Mccullough MD has identified that you are in need of ongoing care of your diabetes. We would like to assist you in making an appointment (as above). Our goal is to help you manage your condition and keep you healthy, and regular visits to address this is very important. If you have a provider outside of [facility] we encourage you to follow up with them regularly. If patient is seeing an outside provider, please document in Care Teams. documented in this encounter [facility] 10-03-2024 Note Patient Outreach (4C Q) GAYATHRIALBER SOLIMAN ([id number]) 1965 M NFR Date Time Provider Department 10/03/24 DWAYNE MCCULLOUGH 4CQ During your visit today, we recorded the following information about you: Linda Moss 10/03/2024 11:00 AM Signed Diabetes Outreach Alber Henderson Tylertiffany has been identified for clinical review due to his diagnosis of Diabetes. They have gaps in care of: Lack of PCP team appointment every 6 months Hemoglobin A1C (%) Date Value 07/24/2023 7.0 06/16/2022 6.9 03/11/2022 6.4 06/24/2021 6.6 02/19/2021 6.5 Based on this review the following interventions will be enacted: Schedule appointment with PCP PSS Team - Please contact the patient with the following scripting Dwayne Mccullough MD has identified that you are in need of ongoing care of your diabetes. We would like to assist you in making an appointment (as above). Our goal is to help you manage your condition and keep you healthy, and regular visits to address this is very important. If you have a provider outside of [facility] we encourage you to follow up with them regularly. If patient is seeing an outside provider, please document in Care Teams. Allergies As of Date: 10/03/2024 Noted Allergy Reaction SULFA (SULFONAMIDE ANTIBIOTICS) 01/29/2005 16 - Unknown Comments: Was chewing on matches as a child and has narrowing of throat. Date Reviewed: 03/14/2024 Reviewed by: Alma Montes MA - Fully Assessed Prescriptions as of 10/03/2024 - Vitamin E, dl, acetate, (VITAMIN E) 400 unit capsule Take 1 capsule by mouth once daily. - Cholecalciferol, Vitamin D3, 250 mcg (10,000 unit) cap Take 1 capsule by mouth once daily. - Ascorbic Acid (VITAMIN C) 1,000 mg tablet Take 1 tablet by mouth once daily. - omeprazole (PRILOSEC) 20 mg capsule Take 1 capsule by mouth daily before breakfast. 1/2 hr before meal. - mv-mn/folic/lutein/herbal 293 (ALIVE MEN'S 50 PLUS MULTIVIT ORAL) Take by mouth. Take one tablet daily - omega-3 fatty acids 1,000 mg cap Take 2 capsules by mouth twice daily. - rosuvastatin (CRESTOR) 10 mg tablet Take 0.5 tablets by mouth daily at bedtime. - cetirizine (ZYRTEC) 10 mg tablet Take 1 tablet by mouth once daily. - aspirin, enteric coated (ASPIRIN, ENTERIC COATED) 81 mg EC tablet Take 1 tablet by mouth once daily. 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] 05/22/2015 Well adult exam [Z00.00] 06/06/2016 Erectile dysfunction [N52.9] 09/18/2016 Screening for colon cancer [Z12.11] 02/06/2017 Difficult airway for intubation [T88.4XXA] 05/13/2017 Family history of early CAD [Z82.49] 08/07/2017 Type 2 diabetes mellitus without complication, *02/18/2021 Neck pain [M54.2] 05/07/2021 Subclinical hypothyroidism [E03.8] 12/30/2021 Hyperlipidemia, mixed [E78.2] 12/30/2021 History of 2019 novel coronavirus disease (COVI*07/02/2022 Screening for prostate cancer [Z12.5] 04/21/2023 Encounter Status:Closed by LINDA MOSS on 10/03/24 [facility] 03-14-2024 History of Present illness Narrative Radiology Service Progress Note PATIENT NAME: Alber Lenz DATE OF SERVICE: March 14, 2024 TIME: 3:54 PM PATIENT IDENTITY VERIFICATION COMPLETED USING TWO (2) IDENTIFIERS: Name and Date of confirmed by patient verbally. FALL SCREENING: Has the patient had 2 falls in the last year or 1 fall with injury or currently using an Ambulatory Assistive Device (Walker, Cane, Wheelchair, Crutches, etc.)? No PATIENT GENDER DATA: Male PATIENT RELEVANT IMPLANT DATA REVIEWED: Yes PATIENT PRESENTS WITH AN IMPLANTABLE OR ATTACHED SQUARING SHEAR OPERATOR: No RADIOLOGY DEPARTMENT: General X-ray: Exam(s) Completed: Chest X-Ray PERIPHERAL IV DATA: Not applicable SIGNED BY: MOISES Catalan) March 14, 2024 3:54 PM documented in this encounter [facility] 03-14-2024 Note HNO ID: [id number] Author: ZACHARY ARNDT RT (R) Service: Radiology Author Type: Technologist Type: Progress Notes Filed: 03/14/2024 16:02 Note Text: Radiology Service Progress Note PATIENT NAME: Alber Lenz DATE OF SERVICE: March 14, 2024 TIME: 3:54 PM PATIENT IDENTITY VERIFICATION COMPLETED USING TWO (2) IDENTIFIERS: Name and Date of confirmed by patient verbally. FALL SCREENING: Has the patient had 2 falls in the last year or 1 fall with injury or currently using an Ambulatory Assistive Device (Walker, Cane, Wheelchair, Crutches, etc.)? No PATIENT GENDER DATA: Male PATIENT RELEVANT IMPLANT DATA REVIEWED: Yes PATIENT PRESENTS WITH AN IMPLANTABLE OR ATTACHED SQUARING SHEAR OPERATOR: No RADIOLOGY DEPARTMENT: General X-ray: Exam(s) Completed: Chest X-Ray PERIPHERAL IV DATA: Not applicable SIGNED BY: MOISES Catalan) March 14, 2024 3:54 PM [facility] 03-14-2024 Note HNO ID: [id number] Author: CAITLIN SIERRA PA Service: ? Author Type: Physician Big Data Engineer Type: Progress Notes Filed: 03/14/2024 16:23 Note Text: This note was created using OG-Vegasriter. Subjective Alber Lenz is a 58 year old male. HPI 58-year-old male presents for cough, chest congestion, nasal congestion x 3 weeks. Patient states he has had nasal congestion, sinus pressure for about 3 weeks. He has had a productive cough for 3 weeks. He states he is coughing up yellow/green mucus. Patient was seen here 03/08/2024 and diagnosed with sinusitis. He was prescribed doxycycline. Patient states symptoms have not improved at all. He states doxycycline does not work for me. He states normally he gets Levaquin when he is sick. Patient denies any history of COPD or asthma. He is a smoker for 30+ years. He denies any chest pain or shortness of breath. No wheezing. No fevers. He has been using Afrin for the nasal congestion which does help. No other complaint. PAST MEDICAL HISTORY Diagnosis Date Allergic rhinitis due to pollen 05/22/2015 Degenerative arthritis of finger 05/22/2015 2nd PIP Elevated fasting blood sugar 05/24/2015 Erectile dysfunction 09/18/2016 Family history of early CAD 08/07/2017 Last stress , repeat every 5 years Family history of [place] (my[place] infarction) 05/22/2015 Dad and Brother GERD without esophagitis 05/22/2015 History of 2019 novel coronavirus disease (COVID-19) 07/02/2022 Early 2021 Hyperlipidemia, mixed 12/30/2021 [facility] 12/30/2021 Neck pain 05/07/2021 Restless legs syndrome (RLS) 05/28/2007 Smoker 05/22/2015 Started at age 15 up to 1 PPD Subclinical hypothyroidism 12/30/2021 Type 2 diabetes mellitus without complication, without long-term current use of insulin (HCC) 02/18/2021 PAST SURGICAL HISTORY Procedure Laterality Date COLONOSCOPY FLX DX W/COLLJ SPEC WHEN PFRMD 08/14/14 Colonoscopy, recheck 5 yrs COLONOSCOPY FLX DX W/COLLJ SPEC WHEN PFRMD 02/13/2020 Repeat in 5 years HERNIA REPAIR HX LAPAROSCOPY SURG RPR INITIAL INGUINAL HERNIA Bilateral 05/13/2017 medium 3D max - bilat PAST SURGICAL HISTORY OF 04/2017 Rt and Lt inguinal hernia repair. REPAIR INGUINAL HERNIA Bilateral 08/1963 TONSILLECTOMY HX ALLERGIES Sulfa (Sulfonamide Antibiotics) MEDICATIONS Vitamin E, dl, acetate, (VITAMIN E) 400 unit capsule Take 1 capsule by mouth once daily. Cholecalciferol, Vitamin D3, 250 mcg (10,000 unit) cap Take 1 capsule by mouth once daily. Ascorbic Acid (VITAMIN C) 1,000 mg tablet Take 1 tablet by mouth once daily. omeprazole (PRILOSEC) 20 mg capsule Take 1 capsule by mouth daily before breakfast. 1/2 hr before meal. mv-mn/folic/lutein/herbal 293 (ALIVE MEN'S 50 PLUS MULTIVIT ORAL) Take by mouth. Take one tablet daily omega-3 fatty acids 1,000 mg cap Take 2 capsules by mouth twice daily. rosuvastatin (CRESTOR) 10 mg tablet Take 0.5 tablets by mouth daily at bedtime. (Patient taking differently: Take 10 mg by mouth daily at bedtime.) cetirizine (ZYRTEC) 10 mg tablet Take 1 tablet by mouth once daily. aspirin, enteric coated (ASPIRIN, ENTERIC COATED) 81 mg EC tablet Take 1 tablet by mouth once daily. FAMILY HISTORY Problem Relation Age of Onset Diabetes Father Coronary Artery Disease Father 60's Lipids Father Coronary Artery Disease Brother late 30's Diabetes Mother Lipids Mother Stroke Mother Hypertension Brother Lipids Brother Lipids Sister Seizures Brother Obesity Brother Thyroid Brother Social History Tobacco Use Smoking status: Light Smoker Current packs/day: 0.00 Average packs/day: 1 pack/day for 22.0 years (22.0 ttl pk-yrs) Types: Cigarettes Start date: 04/03/1995 Last attempt to quit: 04/03/2017 Years since quittin.9 Smokeless tobacco: Never Vaping Use Vaping status: Never Used Substance Use Topics Alcohol use: Yes Comment: very rarely Drug use: No Review of Systems Constitutional: Negative for chills and fever. HENT: Positive for congestion, sinus pressure and sinus pain. Negative for sore throat. Respiratory: Positive for cough. Negative for shortness of breath. Gastrointestinal: Negative for diarrhea and vomiting. Objective BP 110/60 Pulse 78 Temp 37.1 ?C (98.7 ?F) Resp 16 Wt 78.4 kg (172 lb 13.5 oz) SpO2 94% BMI 27.48 kg/m? Physical Exam Vitals and nursing note reviewed. Constitutional: General: He is not in acute distress. Appearance: Normal appearance. He is not toxic-appearing. HENT: Right Ear: Tympanic membrane and ear canal normal. Left Ear: Tympanic membrane and ear canal normal. Nose: Mucosal edema and congestion present. Right Sinus: Maxillary sinus tenderness present. Left Sinus: Maxillary sinus tenderness present. Mouth/Throat: Mouth: Mucous membranes are moist. Eyes: Conjunctiva/sclera: Conjunctivae normal. Cardiovascular: Rate and Rhythm: Normal rate and regular rhyt (more content not included)... [facility] 03-14-2024 History of Present illness Narrative This note was created using Helpstreamter. Subjective Alber Lenz is a 58 year old male. HPI 58-year-old male presents for cough, chest congestion, nasal congestion x 3 weeks. Patient states he has had nasal congestion, sinus pressure for about 3 weeks. He has had a productive cough for 3 weeks. He states he is coughing up yellow/green mucus. Patient was seen here 03/08/2024 and diagnosed with sinusitis. He was prescribed doxycycline. Patient states symptoms have not improved at all. He states doxycycline does not work for me. He states normally he gets Levaquin when he is sick. Patient denies any history of COPD or asthma. He is a smoker for 30+ years. He denies any chest pain or shortness of breath. No wheezing. No fevers. He has been using Afrin for the nasal congestion which does help. No other complaint. PAST MEDICAL HISTORY Diagnosis Date Allergic rhinitis due to pollen 05/22/2015 Degenerative arthritis of finger 05/22/2015 2nd PIP Elevated fasting blood sugar 05/24/2015 Erectile dysfunction 09/18/2016 Family history of early CAD 08/07/2017 Last stress , repeat every 5 years Family history of [place] (my[place] infarction) 05/22/2015 Dad and Brother GERD without esophagitis 05/22/2015 History of 2019 novel coronavirus disease (COVID-19) 07/02/2022 Early 2021 Hyperlipidemia, mixed 12/30/2021 [facility] 12/30/2021 Neck pain 05/07/2021 Restless legs syndrome (RLS) 05/28/2007 Smoker 05/22/2015 Started at age 15 up to 1 PPD Subclinical hypothyroidism 12/30/2021 Type 2 diabetes mellitus without complication, without long-term current use of insulin (HCC) 02/18/2021 PAST SURGICAL HISTORY Procedure Laterality Date COLONOSCOPY FLX DX W/COLLJ SPEC WHEN PFRMD 08/14/14 Colonoscopy, recheck 5 yrs COLONOSCOPY FLX DX W/COLLJ SPEC WHEN PFRMD 02/13/2020 Repeat in 5 years HERNIA REPAIR HX LAPAROSCOPY SURG RPR INITIAL INGUINAL HERNIA Bilateral 05/13/2017 medium 3D max - bilat PAST SURGICAL HISTORY OF 04/2017 Rt and Lt inguinal hernia repair. REPAIR INGUINAL HERNIA Bilateral 08/1963 TONSILLECTOMY HX ALLERGIES Sulfa (Sulfonamide Antibiotics) MEDICATIONS Vitamin E, dl, acetate, (VITAMIN E) 400 unit capsule Take 1 capsule by mouth once daily. Cholecalciferol, Vitamin D3, 250 mcg (10,000 unit) cap Take 1 capsule by mouth once daily. Ascorbic Acid (VITAMIN C) 1,000 mg tablet Take 1 tablet by mouth once daily. omeprazole (PRILOSEC) 20 mg capsule Take 1 capsule by mouth daily before breakfast. 1/2 hr before meal. mv-mn/folic/lutein/herbal 293 (ALIVE MEN'S 50 PLUS MULTIVIT ORAL) Take by mouth. Take one tablet daily omega-3 fatty acids 1,000 mg cap Take 2 capsules by mouth twice daily. rosuvastatin (CRESTOR) 10 mg tablet Take 0.5 tablets by mouth daily at bedtime. (Patient taking differently: Take 10 mg by mouth daily at bedtime.) cetirizine (ZYRTEC) 10 mg tablet Take 1 tablet by mouth once daily. aspirin, enteric coated (ASPIRIN, ENTERIC COATED) 81 mg EC tablet Take 1 tablet by mouth once daily. FAMILY HISTORY Problem Relation Age of Onset Diabetes Father Coronary Artery Disease Father 60's Lipids Father Coronary Artery Disease Brother late 30's Diabetes Mother Lipids Mother Stroke Mother Hypertension Brother Lipids Brother Lipids Sister Seizures Brother Obesity Brother Thyroid Brother Social History Tobacco Use Smoking status: Light Smoker Current packs/day: 0.00 Average packs/day: 1 pack/day for 22.0 years (22.0 ttl pk-yrs) Types: Cigarettes Start date: 04/03/1995 Last attempt to quit: 04/03/2017 Years since quittin.9 Smokeless tobacco: Never Vaping Use Vaping status: Never Used Substance Use Topics Alcohol use: Yes Comment: very rarely Drug use: No Review of Systems Constitutional: Negative for chills and fever. HENT: Positive for congestion, sinus pressure and sinus pain. Negative for sore throat. Respiratory: Positive for cough. Negative for shortness of breath. Gastrointestinal: Negative for diarrhea and vomiting. Objective BP 110/60 Pulse 78 Temp 37.1 C (98.7 F) Resp 16 Wt 78.4 kg (172 lb 13.5 oz) SpO2 94% BMI 27.48 kg/m Physical Exam Vitals and nursing note reviewed. Constitutional: General: He is not in acute distress. Appearance: Normal appearance. He is not toxic-appearing. HENT: Right Ear: Tympanic membrane and ear canal normal. Left Ear: Tympanic membrane and ear canal normal. Nose: Mucosal edema and congestion present. Right Sinus: Maxillary sinus tenderness present. Left Sinus: Maxillary sinus tenderness present. Mouth/Throat: Mouth: Mucous membranes are moist. Eyes: Conjunctiva/sclera: Conjunctivae normal. Cardiovascular: Rate and Rhythm: Normal rate and regular rhythm. Pulmonary: Effort: Pulmonary effort is normal. Breath sounds: Normal breath sounds. No wheezing, rhonchi or rales. Skin: General: Skin is warm and dry. Neurological: Mental Status: He is alert. Assessment and Plan ASSESSMENT/PLAN: 1. Bacterial sinusitis - ICD9: 473.9, 041.9, ICD10: J32.9, B96.89 (primary diagnosis) -Sinus symptoms x 3 weeks. No improvement on doxycycline. - Will begin treatment with Augmentin 875 mg PO BID for 7 days - Supportive care with plenty of fluids, rest, and analgesia prn. 2. Subacute cough - ICD9: 786.2, ICD10: R05.2 - XR CHEST 2V FRONTAL/LAT-no acute abnormality. -Will hold off on prednisone at this time as patient has no wheezing and is a diabetic. -Suspect possible component of COPD as patient is a smoker. -Follow-up with PCP. Diagnosis and treatment plan were discussed and questions were answered to the patient's satisfaction. Pt acknowledged understanding of concepts and follow up plan. Specific signs and symptoms that would indicate the need for higher level of care were discussed in detail warranting prompt ER evaluation. TRU Kaye documented in this encounter [facility] 03-08-2024 Note HNO ID: [id number] Author: NIRAV VALLADARES APRN.PARTS DATA WRITER Service: ? Author Type: Nurse Practitioner Type: Progress Notes Filed: 03/08/2024 15:52 Note Text: This note was created using OG-Vegasriter. Subjective Alber Lenz is a 58 year old male. HPI For the last 17 days pt has had a cough, headache, and sinus pressure. He has been using OTC meds with symptoms worsening symptoms. He notes that his cough is now becoming productive. Review of Systems Constitutional: Negative for fever. HENT: Positive for congestion and sinus pain. Respiratory: Positive for cough. Musculoskeletal: Positive for myalgias. Neurological: Positive for headaches. Objective BP 126/81 Pulse 77 Temp 36.6 ?C (97.8 ?F) Resp 18 Wt 77 kg (169 lb 12.1 oz) SpO2 97% BMI 26.99 kg/m? Physical Exam Vitals and nursing note reviewed. Constitutional: General: He is not in acute distress. Appearance: Normal appearance. He is not ill-appearing. HENT: Head: Normocephalic. Right Ear: Tympanic membrane normal. Left Ear: Tympanic membrane normal. Mouth/Throat: Mouth: Mucous membranes are moist. Eyes: Conjunctiva/sclera: Conjunctivae normal. Cardiovascular: Rate and Rhythm: Normal rate and regular rhythm. Pulmonary: Effort: Pulmonary effort is normal. Breath sounds: Normal breath sounds. Musculoskeletal: General: Normal range of motion. Cervical back: Normal range of motion. Skin: General: Skin is warm and dry. Neurological: General: No focal deficit present. Mental Status: He is alert. Psychiatric: Mood and Affect: Mood normal. Behavior: Behavior normal. Assessment and Plan ASSESSMENT/PLAN: 1. Bacterial sinusitis - ICD9: 473.9, 041.9, ICD10: J32.9, B96.89 - Will begin treatment with as per antibiotic as written, see orders - Follow up in one week if symptoms persist or worsen. -Discussed with patient concern for respiratory infection combined with his history of smoking. Patient will be started on doxycycline which will cover both sinus and respiratory issues. Patient comfortable with plan. No steroids given as patient is diabetic. - DOXYCYCLINE MONOHYDRATE 100 MG CAPSULE Nirav Valladares APRN.CNP [facility] 03-08-2024 History of Present illness Narrative This note was created using Aframe. Subjective Alber Lenz is a 58 year old male. HPI For the last 17 days pt has had a cough, headache, and sinus pressure. He has been using OTC meds with symptoms worsening symptoms. He notes that his cough is now becoming productive. Review of Systems Constitutional: Negative for fever. HENT: Positive for congestion and sinus pain. Respiratory: Positive for cough. Musculoskeletal: Positive for myalgias. Neurological: Positive for headaches. Objective BP 126/81 Pulse 77 Temp 36.6 C (97.8 F) Resp 18 Wt 77 kg (169 lb 12.1 oz) SpO2 97% BMI 26.99 kg/m Physical Exam Vitals and nursing note reviewed. Constitutional: General: He is not in acute distress. Appearance: Normal appearance. He is not ill-appearing. HENT: Head: Normocephalic. Right Ear: Tympanic membrane normal. Left Ear: Tympanic membrane normal. Mouth/Throat: Mouth: Mucous membranes are moist. Eyes: Conjunctiva/sclera: Conjunctivae normal. Cardiovascular: Rate and Rhythm: Normal rate and regular rhythm. Pulmonary: Effort: Pulmonary effort is normal. Breath sounds: Normal breath sounds. Musculoskeletal: General: Normal range of motion. Cervical back: Normal range of motion. Skin: General: Skin is warm and dry. Neurological: General: No focal deficit present. Mental Status: He is alert. Psychiatric: Mood and Affect: Mood normal. Behavior: Behavior normal. Assessment and Plan ASSESSMENT/PLAN: 1. Bacterial sinusitis - ICD9: 473.9, 041.9, ICD10: J32.9, B96.89 - Will begin treatment with as per antibiotic as written, see orders - Follow up in one week if symptoms persist or worsen. -Discussed with patient concern for respiratory infection combined with his history of smoking. Patient will be started on doxycycline which will cover both sinus and respiratory issues. Patient comfortable with plan. No steroids given as patient is diabetic. - DOXYCYCLINE MONOHYDRATE 100 MG CAPSULE Nirav Moomaw, PIT HOIST OPERATOR.PARTS DATA WRITER documented in this encounter [facility] 12-02-2023 Telephone encounter Note Patient/Family calling with questions regarding financials and billing. Patient/Family directed in the following manner: For financial questions about an upcoming service, use MyChart to schedule a callback with a Patient Partner Marketing Manager at the [facility].[employer] or call toll-free at [phone]. For questions regarding a medical bill for a past / post service, use MyChart to schedule a callback with a Endoscopy Tech at [employer] [email or web address] or call toll-free at [phone]. Pt was given the cust service number & he will call. Patient/Family verbalized understanding. Rosemary Lucero LPN [facility] 12-02-2023 Miscellaneous Notes Patient/Family calling with questions regarding financials and billing. Patient/Family directed in the following manner: For financial questions about an upcoming service, use MyChart to schedule a callback with a Patient Partner Marketing Manager at [facility]pf[employer]back or call toll-free at [phone]. For questions regarding a medical bill for a past / post service, use MyChart to schedule a callback with a Endoscopy Tech at [employer] [facility]billing or call toll-free at [phone]. Pt was given the cust service number & he will call. Patient/Family verbalized understanding. Rosemary Lucero LPN documented in this encounter [facility] 11-09-2023 Note HNO ID: [id number] Author: ?, ?, ? Service: ? Author Type: ? Type: Progress Notes Filed: 11/09/2023 16:18 Note Text: Patient given shingrix IM in the right deltoid. Patient tolerated injection well. Lot#: [id number] Exp date: 10/01/2025 Ciarra Dominique LPN [facility] 11-09-2023 History of Present illness Narrative Patient given shingrix IM in the right deltoid. Patient tolerated injection well. Lot#: [id number] Exp date: 10/01/2025 Ciarra Dominique LPN documented in this encounter [facility] 08-06-2023 Miscellaneous Notes Noted. See pt message. I've went ahead and updated additional supplements that were not on his list. Danyelle Jeong Ma documented in this encounter [facility] 08-05-2023 Instructions Dwayne Mccullough MD - 08/05/2023 4:52 PM EDT Check to see if insurance is covering the RSV vaccine. documented in this encounter [facility] 08-05-2023 History of Present illness Narrative Images from the original note were not included. Chief Complaint Patient presents with: Physical HPI Alber Lenz is a 58 year old male who presents here today for Physical. Patient with hx of DM, hypertriglyceridemia, GERD, subclinical hypothyroidism, allergic rhinitis, ED, smoker as well as those reviewed and addressed below. [facility]. Any recent ER/Hospital visits? none Past medical history, appointments, medications, allergies reviewed. Previous Medical History PAST MEDICAL HISTORY Diagnosis Date Allergic rhinitis due to pollen 05/22/2015 Degenerative arthritis of finger 05/22/2015 2nd PIP Elevated fasting blood sugar 05/24/2015 Erectile dysfunction 09/18/2016 Family history of early CAD 08/07/2017 Last stress , repeat every 5 years Family history of [place] (myocardial infarction) 05/22/2015 Dad and Brother GERD without esophagitis 05/22/2015 History of 2019 novel coronavirus disease (COVID-19) 07/02/2022 Early 2021 Hyperlipidemia, mixed 12/30/2021 [facility] 12/30/2021 Neck pain 05/07/2021 Restless legs syndrome (RLS) 05/28/2007 Smoker 05/22/2015 Started at age 15 up to 1 PPD Subclinical hypothyroidism 12/30/2021 Type 2 diabetes mellitus without complication, without long-term current use of insulin (HCC) 02/18/2021 Previous Surgical History PAST SURGICAL HISTORY Procedure Laterality Date COLONOSCOPY FLX DX W/COLLJ SPEC WHEN PFRMD 08/14/14 Colonoscopy, recheck 5 yrs COLONOSCOPY FLX DX W/COLLJ SPEC WHEN PFRMD 02/13/2020 Repeat in 5 years HERNIA REPAIR HX LAPAROSCOPY SURG RPR INITIAL INGUINAL HERNIA Bilateral 05/13/2017 medium 3D max - bilat PAST SURGICAL HISTORY OF 04/2017 Rt and Lt inguinal hernia repair. REPAIR INGUINAL HERNIA Bilateral 08/1963 TONSILLECTOMY HX Family History FAMILY HISTORY Problem Relation Age of Onset Diabetes Father Coronary Artery Disease Father 60's Lipids Father Coronary Artery Disease Brother late 30's Diabetes Mother Lipids Mother Stroke Mother Hypertension Brother Lipids Brother Lipids Sister Seizures Brother Obesity Brother Thyroid Brother Patient Allergies ALLERGIES Allergen Reactions Sulfa (Sulfonamide * Unknown Was chewing on matches as a child and has narrowing of throat. Current Medications Current Outpatient Medications on File Prior to Visit Medication Sig omega-3 fatty acids 1,000 mg cap Take 2 capsules by mouth twice daily. rosuvastatin (CRESTOR) 10 mg tablet Take 0.5 tablets by mouth daily at bedtime. diphenhydrAMINE (BENADRYL) 25 mg capsule Take 1 capsule by mouth daily at bedtime. cetirizine (ZYRTEC) 10 mg tablet Take 1 tablet by mouth once daily. aspirin, enteric coated (ASPIRIN, ENTERIC COATED) 81 mg EC tablet Take 1 tablet by mouth once daily. No current facility-administered medications on file prior to visit. Social History Social History Tobacco Use Smoking status: Light Smoker Packs/day: 1.00 Years: 22.00 Additional pack years: 0.00 Total pack years: 22.00 Types: Cigarettes Last attempt to quit: 04/03/2017 Years since quittin.3 Smokeless tobacco: Never Vaping Use Vaping Use: Never used Substance Use Topics Alcohol use: Yes Comment: very rarely Drug use: No Review of Symptoms REVIEW OF SYSTEMS GENERAL: No weight loss, malaise or fevers HEENT: Negative for frequent or significant headaches, No changes in hearing or vision, no nose bleeds or other nasal problems NECK: Negative for lumps, goiter, pain and significant neck swelling RESPIRATORY: Negative for cough, hemoptysis, wheezing, COPD, dyspnea or shortness of breath CARDIOVASCULAR: Negative for chest pain, leg swelling, hypertension, CHF or palpitations GI: No nausea, vomiting, or diarrhea, No heartburn or reflux symptoms, and no blood : No history of dysuria, frequency or blood MUSCULOSKELETAL: has stiffness in the hands. SKIN: Negative for lesions, rash, and itching PSYCH: Negative for sleep disturbance, mood disorder and recent psychosocial stressors HEMATOLOGY/LYMPHOLOGY: Negative for prolonged bleeding, bruising easily or swollen nodes ENDOCRINE: Negative for cold or heat intolerance, polyuria, polydipsia and goiter NEURO: No history of headaches, syncope, paralysis, seizures or tremors EXAM: BP 142/88 (BP Site: Left Arm, BP Position: Sitting, BP Cuff Size: Regular Adult) Pulse 72 Resp 16 Ht 168.9 cm (5' 6.5) Wt 77.1 kg (170 lb) BMI 27.03 kg/m BP 132/82 Pulse 72 Resp 16 Ht 168.9 cm (5' 6.5) Wt 77.1 kg (170 lb) BMI 27.03 kg/m Last 5 Encounter Wt Readings: Date: Wt: 08/05/2023 77.1 kg (170 lb) 07/10/2023 78.9 kg (174 lb) 12/30/2021 79.4 kg (175 lb) 12/18/2021 78.9 kg (174 lb) 04/17/2021 78.5 kg (173 lb) General Appearance: Well appearing, alert, in no acute distress, well-hydrated, well nourished.. Skin: Skin color, texture, turgor normal, no suspicious rashes or lesions. Head: Normocephalic, no masses, lesions, tenderness or abnormalities. Eyes: Anicteric sclera. Pupils are equally round and reactive to light. Extraocular movements are intact. . Ears: External ears, TM's normal, canals clear. Nose/Sinuses: Nares normal, septum midline, mucosa normal, no drainage or sinus tenderness. Oropharynx: Lips, mucosa, and tongue normal, teeth and gums normal, oropharynx normal. Neck: Supple, no adenopathy; thyroid symmetric, normal size, no bruits. Lungs: Lungs clear to auscultation. No wheezing, rhonchi, rales.. Heart: RRR without murmur, gallop, or rubs. No ectopy. Abdomen: Normal abdominal exam, Abdomen soft, non-tender. Bowel sounds normal. No masses, organomegaly. Extremities: No deformities, edema, skin discoloration, clubbing or cyanosis. Good capillary refill. . Musculoskeletal: Muscular strength intact, No joint swelling, deformity, or tenderness. Peripheral Pulses: Normal. Neurologic: Gait normal. Reflexes normal and symmetric. Sensation to light touch and crainal nerves 2-12 intact.. Genitalia: Normal, Penis normal. No urethral discharge. Scrotum normal to palpation. No hernia.. Rectal: Normal exam. Prostate enlarged with smooth firm surface. Diabetic Foot Exam: Feet: Shoes and socks removed, normal distal pulses, sensitive to 10 gm microfilament, vibratory exam within normal limits, and calluses noted bilaterally Skin: warm and dry Vascular Pulses: Normal [facility] TESTING Left Foot Right Foot Dorsal Surface Intact Dorsal Surface Intact Plantar Surface Intact Plantar Surface Intact Health Maintenance List Shingrix Vaccine(1 of 2) Never done Influenza Vaccine(1) due on 01/16/2023 Covid-19 Vaccine(2022- season) Never done Dilated Retinal Exam due on 03/18/2023 Depression Assessment due on 05/18/2023 Diabetic Foot Exam due on 07/02/2023 Annual PCP Team Chronic Disease Visit due on 07/02/2023 RSV Vaccine(1 - 1-dose 60+ series) Never done HbA1C due on 01/24/2024 Urine Albumin:Creatinine Ratio due on 07/23/2024 LDL Cholesterol due on 07/23/2024 Colorectal Cancer Screening due on 02/12/2025 Prostate Cancer Screening Discussion due on 07/23/2028 DTaP,Tdap,Td Vaccine(3 - Td or Tdap) due on 12/14/2031 Hepatitis C Screening Completed HIV Screening Completed Pneumococcal Vaccine Completed Lung Cancer Screening Discontinued Data reviewed Latest Ref Rng 06/16/2022 07/15/2022 07/24/2023 WBC 3.70 - 11.00 k/uL 9.99 RBC 4.20 - 6.00 m/uL 4.99 Hemoglobin 13.0 - 17.0 g/dL 15.2 Hematocrit 39.0 - 51.0 % 44.7 MCV 80.0 - 100.0 fL 89.6 MCH 26.0 - 34.0 pg 30.5 MCHC 30.5 - 36.0 g/dL 34.0 RDW-CV 11.5 - 15.0 % 12.8 Platelet Count 150 - 400 k/uL 214 MPV 9.0 - 12.7 fL 10.9 Neut% % 50.8 Abs Neut (ANC) 1.45 - 7.50 k/uL 5.07 Lymph% % 39.3 Abs Lymph 1.00 - 4.00 k/uL 3.93 Roane% % 7.3 Abs Roane <0.87 k/uL 0.73 Eosin% % 1.8 Abs Eosin <0.46 k/uL 0.18 Baso% % 0.6 Abs Baso <0.11 k/uL 0.06 Immature Gran % % 0.2 IMMATURE GRANS (ABS) <0.10 k/uL <0.03 NRBC /100 WBC 0.0 Absolute nRBC <0.01 k/uL <0.01 DTYPE Auto Color Yellow Yellow Clarity Clear Clear Glucose, Urine Negative Negative Bilirubin, Urine Negative Negative Ketones, Urine Negative Negative Specific [place], Ur 1.005 - 1.030 1.009 Hemoglobin/Blood,Ur Negative Negative pH, Urine <8.5 7.0 Protein, Urine Negative Negative Urobilinogen 0.2-1.0 EU/dL 0.2 EU/dL Nitrites Negative Negative Leukest Negative Negative WBC, Urine 0-5 /HPF 0-5 /HPF RBC, Urine 0-2 /HPF 0-2 /HPF Bacteria Negative /HPF Negative Epithelial Cells /HPF None Seen Hyaline Cast 0 /LPF 0 /LPF Protein, Total 6.3 - 8.0 g/dL 7.3 6.9 Albumin 3.9 - 4.9 g/dL 4.7 4.5 Calcium 8.5 - 10.2 mg/dL 10.0 9.7 Bilirubin, Total 0.2 - 1.3 mg/dL 0.4 0.5 Alkaline Phosphatase 38 - 113 U/L 92 82 AST 14 - 40 U/L 28 26 ALT 10 - 54 U/L 42 37 Glucose 74 - 99 mg/dL 96 91 BUN 9 - 24 mg/dL 13 9 Creatinine 0.73 - 1.22 mg/dL 0.94 0.83 Sodium 136 - 144 mmol/L 141 141 Potassium 3.7 - 5.1 mmol/L 4.5 4.5 Chloride 97 - 105 mmol/L 103 103 CO2 22 - 30 mmol/L 26 28 Anion Gap 9 - 18 mmol/L 12 10 eGFR >=60 mL/min/1.73m 94 101 Cholesterol, Total <200 mg/dL 166 Triglyceride <150 mg/dL 239 (H) HDL Cholesterol >39 mg/dL 34 (L) Non HDL Cholesterol <130 mg/dL 132 (H) Fasting Time hrs 12 VLDL Cholesterol <30 mg/dL 48 (H) TC:HDL Ratio <5.10 4.88 LDL Cholesterol <100 mg/dL 84 LDL:HDL Ratio <2.54 2.47 Total Cholesterol, Nonfasting <200 mg/dL 132 Triglycerides, Nonfasting <150 mg/dL 183 (H) HDL Cholesterol, Nonfasting >39 mg/dL 33 (L) LDL Cholesterol, Nonfasting <100 mg/dL 62 Non HDL Cholesterol, Nonfasting <130 mg/dL 99 VLDL Cholesterol, Nonfasting <30 mg/dL 37 (H) Total Chol/HDL Ratio, Nonfasting <5.10 mg/dL 4.00 LDL/HDL Ratio, Nonfasting <2.54 mg/dL 1.88 Creatinine, Ur Random (UCRR) 20.0 - 300.0 mg/dL 150.9 57.9 Albumin, Urine Random mg/L <12.0 <12.0 Albumin/Creat Ratio <30 mg/g <8 <21 Hemoglobin A1C 4.3 - 5.6 % 6.9 (H) 7.0 (H) Estimated Average Glucose mg/dL 151 154 TSH 0.270 - 4.200 mIU/L 3.740 2.520 PSA <2.60 ng/mL 0.87 Free T4 0.9 - 1.7 ng/dL 1.1 A/P ASSESSMENT/PLAN: 1. Well adult exam - ICD9: V70.0, ICD10: Z00.00 (primary diagnosis) - Counseled on healthy diet and regular exercise - Discussed need for and benefit of weight loss. BMI 27.03 kg/(m^2) - Patient was counseled [id number] by myself (the billing provider) for the following immunizations and vaccine components, including side effects: Shingrix and TdaP. Patient consents for immunization and understands risks and benefits. A VIS sheet on each immunization was given to the patient. - Follow up for annual exam in one year - TDAP VACCINE, AGE 7+ YR (ADACEL, BOOSTRIX) - ZOSTER VACCINE, RECOMBINANT (SHINGRIX) - ZOSTER VACCINE, RECOMBINANT (SHINGRIX) Advised on RSV 2. Hyperlipidemia, mixed - ICD9: 272.2, ICD10: E78.2 - Controlled - Continue current medications - Counseled on healthy diet and regular exercise - managed per [facility] 3. Type 2 diabetes mellitus without complication, without long-term current use of insulin (HCC) - ICD9: 250.00, ICD10: E11.9 - Controlled - Worsening control - Continue current medications - Discussed need for and benefit of weight loss. BMI 27.03 kg/(m^2) - [facility] 4. Subclinical hypothyroidism - ICD9: 244.8, ICD10: E03.8 - Instructed patient on importance of taking on an empty stomach either first thing in the morning or at bedtime. Labs were ok. - [facility]. 5. GERD without esophagitis - ICD9: 530.81, ICD10: K21.9 - [facility] and on PPI 6. Smoker - ICD9: 305.1, ICD10: F17.200 - Cessation encouraged. - Counseling was given focusing on the harmful effects of this addiction especially given the patient's medical condition(s) which will be worsened because of the chemicals in tobacco. - patient is working on quitting and has cut back 7. Foot callus - ICD9: 700, ICD10: L84 - advised on care to prevent ulcers. 8. Need for vaccination - ICD9: V05.9, ICD10: Z23 - TDAP VACCINE, AGE 7+ YR (ADACEL, BOOSTRIX): given - ZOSTER VACCINE, RECOMBINANT (SHINGRIX) #1: given - ZOSTER VACCINE, RECOMBINANT (SHINGRIX)#2 to be given in 2-3 months at [facility]. F/u in a year GERSON Mccullough MD documented in this encounter [facility] 07-10-2023 History of Present illness Narrative Subjective HPI Nontoxic-appearing male presents urgent care chief complaint cough nasal congestion sinus pressure. Duration of symptoms 7 days. Associated symptoms listed above. Patient states initially had body aches chills fever night sweats symptoms did improve and then worsened again. Feels like cough is worsened. Has been using OTC medications have helped some. Denies any chest pain. Does have a productive cough. Risk factors smoking. Denies any fever body aches chills chest pain shortness of breath pleuritic pain hemoptysis nausea vomiting abdominal pain change in bowel or bladder habits. Past medical history prescription medication use and allergies reviewed. 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 2nd PIP Elevated fasting blood sugar 05/24/2015 Erectile dysfunction 09/18/2016 Family history of early CAD 08/07/2017 Last stress 84085, repeat every 5 years Family history of [place] (myocardial infarction) 05/22/2015 Dad and Brother GERD without esophagitis 05/22/2015 History of 2019 novel coronavirus disease (COVID-19) 07/02/2022 Early 2021 Hyperlipidemia, mixed 12/30/2021 [facility] Hypertriglyceridemia 12/30/2021 Neck pain 05/07/2021 Restless legs syndrome (RLS) 05/28/2007 Smoker 05/22/2015 Started at age 15 up to 1 PPD Subclinical hypothyroidism 12/30/2021 Type 2 diabetes mellitus without complication, without long-term current use of insulin (HCC) 02/18/2021 PAST SURGICAL HISTORY Procedure Laterality Date COLONOSCOPY FLX DX W/COLLJ SPEC WHEN PFRMD 08/14/14 Colonoscopy, recheck 5 yrs COLONOSCOPY FLX DX W/COLLJ SPEC WHEN PFRMD 02/13/2020 Repeat in 5 years HERNIA REPAIR HX LAPAROSCOPY SURG RPR INITIAL INGUINAL HERNIA Bilateral 05/13/2017 medium 3D max - bilat PAST SURGICAL HISTORY OF 04/2017 Rt and Lt inguinal hernia repair. REPAIR INGUINAL HERNIA Bilateral 08/1963 TONSILLECTOMY HX ALLERGIES Sulfa (Sulfonamide Antibiotics) MEDICATIONS omega-3 fatty acids 1,000 mg cap Take 2 capsules by mouth twice daily. rosuvastatin (CRESTOR) 10 mg tablet Take 0.5 tablets by mouth daily at bedtime. diphenhydrAMINE (BENADRYL) 25 mg capsule Take 1 capsule by mouth daily at bedtime. cetirizine (ZYRTEC) 10 mg tablet Take 1 tablet by mouth once daily. aspirin, enteric coated (ASPIRIN, ENTERIC COATED) 81 mg EC tablet Take 1 tablet by mouth once daily. FAMILY HISTORY Problem Relation Age of Onset Diabetes Father Coronary Artery Disease Father 60's Lipids Father Coronary Artery Disease Brother late 30's Diabetes Mother Lipids Mother Stroke Mother Hypertension Brother Lipids Brother Lipids Sister Seizures Brother Obesity Brother Thyroid Brother Social History Tobacco Use Smoking status: Light Smoker Packs/day: 1.00 Years: 22.00 Additional pack years: 0.00 Total pack years: 22.00 Types: Cigarettes Last attempt to quit: 04/03/2017 Years since quittin.2 Smokeless tobacco: Never Vaping Use Vaping Use: Never used Substance Use Topics Alcohol use: Yes Comment: very rarely Drug use: No BP 132/85 Pulse 76 Temp 36.2 C (97.1 F) Resp 20 Wt 78.9 kg (174 lb) SpO2 97% BMI (P) 27.66 kg/m Review of Systems Constitutional: Positive for malaise/fatigue. Negative for chills and fever. HENT: Positive for congestion and sinus pain. Negative for ear discharge, ear pain and sore throat. Eyes: Negative for blurred vision, pain, discharge and redness. Respiratory: Positive for cough. Negative for hemoptysis, sputum production, shortness of breath, wheezing and stridor. Cardiovascular: Negative for chest pain. Gastrointestinal: Negative for abdominal pain, diarrhea, nausea and vomiting. Musculoskeletal: Positive for myalgias. Skin: Negative for itching and rash. Neurological: Negative for dizziness and headaches. Objective Physical Exam Constitutional: General: He is not in acute distress. Appearance: He is not diaphoretic. HENT: Head: Normocephalic. Jaw: No trismus, tenderness, swelling or pain on movement. Nose: Congestion present. Right Sinus: Maxillary sinus tenderness present. Left Sinus: Maxillary sinus tenderness present. Mouth/Throat: Mouth: Mucous membranes are moist. Pharynx: Oropharynx is clear. Uvula midline. No pharyngeal swelling, oropharyngeal exudate, posterior oropharyngeal erythema or uvula swelling. Eyes: Conjunctiva/sclera: Conjunctivae normal. Pupils: Pupils are equal, round, and reactive to light. Cardiovascular: Rate and Rhythm: Normal rate and regular rhythm. Heart sounds: Normal heart sounds. Pulmonary: Effort: Pulmonary effort is normal. No tachypnea, accessory muscle usage or respiratory distress. Breath sounds: No stridor. Rhonchi present. No wheezing or rales. Abdominal: General: There is no distension. Palpations: Abdomen is soft. Tenderness: There is no abdominal tenderness. There is no guarding or rebound. Musculoskeletal: Cervical back: Normal range of motion and neck supple. No edema, erythema, rigidity or tenderness. No pain with movement. Normal range of motion. Lymphadenopathy: Cervical: No cervical adenopathy. Skin: General: Skin is warm and dry. Neurological: Mental Status: He is alert and oriented to person, place, and time. ASSESSMENT/PLAN: 1. Lower respiratory tract infection - ICD9: 519.8, ICD10: J22 Patient nontoxic-appearing. Hemodynamically stable. Abdomen changes lung sounds left lower lobe. Had flulike symptoms beginning of illness improved and then symptoms worsened again. Suspicious of secondary bacterial infection. Will treat with doxycycline today. If symptoms are worsening will be seen in urgent care over the weekend if symptoms or not improving will follow-up with PCP on Thursday. Patient was educated on supportive therapies. Patient will follow up with primary care provider as needed. Patient was instructed to immediately proceed to emergency room for any new, worsening, or symptoms lasting longer than anticipated. The patient's clinical presentation is otherwise unremarkable at this time. Based on exam and clinical finding, the patient is stable for discharge. Plan of care was discussed with patient. Patient verbalizes understanding and agrees to plan of care. This note was generated using icomasoft software. It may contain errors in wording, punctuation, or spelling. Dwayne Ryder APRN.RADHIKA documented in this encounter [facility] 04-22-2023 Miscellaneous Notes Patient was notified Yani Merillat Ma Patient does not need to fast. Pt informed. Pt asking if lipid panel should be fasting but ordered as nonfasting. Please advise. Jayde Jha MA Let patient know blood work and urine test placed that can be done after 07/24/2023. NOREEN 07/02/22 NOV 08/05/23 Maxine Ramos MA Pt requesting routine lab work and PSA put in so he can get it done before yearly. Please review and advise Marjan Contreras April 21, 2023 2:23 PM documented in this encounter [facility] 07-15-2022 Miscellaneous Notes Please call and schedule patient Yani Kilpatrick Ma Order placed for referral to lung cancer screening clinic. Patient calling about lung screening. Patient states that at appointment provider had discussed with him about lung screening and how patient could get it done at [facility]. Patient asking if this can be done here at the clinic? Please review and advise, Savanah Chan RN documented in this encounter [facility] 12-30-2021 Instructions Kae Ferro APRN.PARTS DATA WRITER - 12/30/2021 4:36 PM EDT Same medications. 2. Start the nystatin. 3. Recheck in 6 months w/ Dr. Mccullough for physical -- get labs. documented in this encounter [facility] 12-30-2021 History of Present illness Narrative This is a 56 year old male who presents today with: Patient presents with: Recheck: 6 month follow up HISTORY OF PRESENT ILLNESS: Alber Lenz is a 56 year old male. Patient presents with: Recheck: 6 month follow up DM: Reports overall feeling well. Medication side effects: n/a. . Home sugar checks: when he remembers. Hypoglycemic spells: No. Watching diet: No. Unexpected weight loss: No. Polyuria, polydipsia: No. Vision Changes: No. Foot lesions or numbness or pain: No. HYPERLIPIDEMIA: Patient is taking medications: Yes. Patient is watching diet: No. Patient denies myalgias: Yes. Patient denies gi upset: Yes Bee stings: Did get several yellow-jacket stings (right arm, left forearm, and abdomen). He is using benadryl prn. Thrush: Recently on prednisone for hand pain. Refers that after being on the prednisone, he developed a white coating on the tongue and the tongue has been painful. Reports he has had thrush in the past, and this is similar. PAST MEDICAL HISTORY: PAST MEDICAL HISTORY Diagnosis Date Allergic rhinitis due to pollen 05/22/2015 Degenerative arthritis of finger 05/22/2015 2nd PIP Elevated fasting blood sugar 05/24/2015 Erectile dysfunction 09/18/2016 Family history of early CAD 08/07/2017 Last stress , repeat every 5 years Family history of [place] (myocardial infarction) 05/22/2015 Dad and Brother GERD without esophagitis 05/22/2015 Mixed hyperlipidemia 05/22/2015 Restless legs syndrome (RLS) 05/28/2007 Smoker 05/22/2015 Started at age 15 up to 1 PPD Snoring Type 2 diabetes mellitus without complication, without long-term current use of insulin (HCC) 02/18/2021 PAST SURGICAL HISTORY Procedure Laterality Date COLONOSCOPY FLX DX W/COLLJ SPEC WHEN PFRMD 08/14/14 Colonoscopy, recheck 5 yrs COLONOSCOPY FLX DX W/COLLJ SPEC WHEN PFRMD 02/13/2020 Repeat in 5 years HERNIA REPAIR HX LAPAROSCOPY SURG RPR INITIAL INGUINAL HERNIA Bilateral 05/13/2017 medium 3D max - bilat PAST SURGICAL HISTORY OF 04/2017 Rt and Lt inguinal hernia repair. REPAIR INGUINAL HERNIA Bilateral 08/1963 TONSILLECTOMY HX ALLERGIES Sulfa (Sulfonamide Antibiotics) MEDICATIONS Current Outpatient Medications Medication Sig diphenhydrAMINE (BENADRYL) 25 mg capsule Take 1 capsule by mouth daily at bedtime. rosuvastatin (CRESTOR) 10 mg tablet Take 1 tablet by mouth daily at bedtime. meclizine (ANTIVERT) 12.5 mg tab Take 1 tablet by mouth every 6 hours as needed (dizziness). fluticasone (FLONASE) 50 mcg/actuation nasal spray Use 2 Sprays in each nostril once daily. Rinse mouth after use. cetirizine (ZYRTEC) 10 mg tablet Take 1 tablet by mouth once daily. omeprazole (PRILOSEC) 20 mg capsule Take 1 capsule by mouth daily before breakfast. 1/2 hr before meal. aspirin, enteric coated (ASPIRIN, ENTERIC COATED) 81 mg EC tablet Take 1 tablet by mouth once daily. omega-3 fatty acids 1,000 mg cap Take 2 capsules by mouth once daily. Current Facility-Administered Medications Medication Dose Route Frequency perflutren lipid microspheres 1.3 mL in NaCl (PF) 0.9% 10 mL injection (DEFINITY) INTRAVENOUS DIRECTED PRN sodium chloride 0.9 % (flush) 10 mL (BD POSIFLUSH) 10 mL INTRAVENOUS DIRECTED PRN FAMILY HISTORY Problem Relation Age of Onset Diabetes Father Coronary Artery Disease Father 60's Lipids Father Coronary Artery Disease Brother late 30's Diabetes Mother Lipids Mother Stroke Mother Hypertension Brother Lipids Brother Lipids Sister Seizures Brother Obesity Brother Thyroid Brother Social History Tobacco Use Smoking status: Light Smoker Packs/day: 1.00 Years: 22.00 Pack years: 22.00 Types: Cigarettes Last attempt to quit: 04/03/2017 Years since quittin.7 Smokeless tobacco: Never Vaping Use Vaping Use: Never used Substance Use Topics Alcohol use: Yes Alcohol/week: 0.0 standard drinks Comment: very rarely Drug use: No EXAM: BP 138/90 Pulse 76 Resp 18 Wt 79.4 kg (175 lb) SpO2 96% BMI 27.47 kg/m PHYSICAL EXAM: General Appearance: Well appearing, alert, in no acute distress, well-hydrated, well nourished.. Skin: Skin color, texture, turgor normal, no suspicious rashes or lesions. Several bee stings (arms and abdomen) with mild inflammation. No s/s of infection. Head: Normocephalic, no masses, lesions, tenderness or abnormalities. Eyes: Anicteric sclera. Extraocular movements are intact. . Oropharynx: Lips, mucosa, teeth and gums normal, oropharynx normal. + thrush. Neck: Supple, no adenopathy; thyroid symmetric, normal size, no bruits. Lungs: Lungs clear to auscultation. No wheezing, rhonchi, rales.. Heart: RRR without murmur, gallop, or rubs. No ectopy. Extremities: No deformities, edema, skin discoloration, clubbing or cyanosis. Good capillary refill. Neurologic: Gait normal. ASSESSMENT/PLAN: 1. Type 2 diabetes mellitus without complication, without long-term current use of insulin (HCC) - ICD9: 250.00, ICD10: E11.9 (primary diagnosis) Controlled. Continue diet control and exercise. - ROSUVASTATIN 10 MG TABLET 2. Thrush - ICD9: 112.0, ICD10: B37.0 - [place]STATIN 100,000 UNIT/ML ORAL SUSPENSION 3. Mixed hyperlipidemia - ICD9: 272.2, ICD10: E78.2 - good control - Continue current medication. 4. Bee sting, undetermined intent, sequela - ICD9: 909.1, E989, ICD10: T63.444S Stable. Continue prn benadryl. Notify provider of any s/s of infection. 5. Hypertriglyceridemia - ICD9: 272.1, ICD10: E78.1 - suboptimal control Pt increased his fish oil. - LIPID PANEL BASIC 6. Subclinical hypothyroidism - ICD9: 244.8, ICD10: E03.8 Recheck labs in 6 months. - TSH BLD - T4 FREE/FREE THYROX Discussed treatment plan and patient voices understanding. Patient's questions answered appropriately. Medications and potential side effects were discussed and patient voices understanding. Recheck in 6 months for physical -- sooner if needed. [facility] Return to the office as scheduled or as needed for worsening/no improvement. Kae Ferro APRN.CNP This note was partially generated using icomasoft voice recognition system. Note was reviewed for accuracy. There may be minor misspellings or grammar miscues with icomasoft voice recognition. documented in this encounter [facility] 12-24-2021 Miscellaneous Notes Pt notified. He verbalized understanding. Prashanth Yao LPN Since A1C is an average over three months, a few days of having elevated reading from prednisone shouldn't really make much of an impact on the A1C. So it should still be okay to complete the labs. Kae Ferro APRN.RADHIKA Patient reports he is scheduled with [facility] on Thursday for follow up on labs. Patient has not done the labs yet because he is taking prednisone for arthritis (prescribed by [facility], but did not start right away b/c he went to a concert and was instructed not to drink alcohol with prednisone, so waited to take the prednisone until after the concert). Started the prednisone yesterday- prescribed 2 tabs daily for 5 days. The prednisone is causing his BS to elevate (fasting 173 yesterday, 142 this morning) so he wants to hold off on the labs until he can get a more accurate reading on his a1c Asking if he should re-schedule appt on Thursday until after he is able to do the labwork? Please advise patient. documented in this encounter [facility] 12-18-2021 History of Present illness Narrative This note was created using [employer]. Subjective Alber Lenz is a 56 year old male. HPI Patient presents wanting a COVID test. He is not having any symptoms. He states his 's coworkers tested positive recently. His was negative. He did have COVID previously. Patient states he also would like his left thumb evaluated. He has pain at the base of the thumb especially with movement. 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 It is sore today. Denies injury or trauma. He feels like sometimes it locks up. Review of Systems Constitutional: Negative. Respiratory: Negative. Cardiovascular: Negative. Gastrointestinal: Negative. Musculoskeletal: Left hand/thumb pain All other systems reviewed and are negative. PAST MEDICAL HISTORY Diagnosis Date Allergic rhinitis due to pollen 05/22/2015 Degenerative arthritis of finger 05/22/2015 2nd PIP Elevated fasting blood sugar 05/24/2015 Erectile dysfunction 09/18/2016 Family history of early CAD 08/07/2017 Last stress , repeat every 5 years Family history of [place] (my[place] infarction) 05/22/2015 Dad and Brother GERD without esophagitis 05/22/2015 Mixed hyperlipidemia 05/22/2015 Restless legs syndrome (RLS) 05/28/2007 Smoker 05/22/2015 Started at age 15 up to 1 PPD Snoring Type 2 diabetes mellitus without complication, without long-term current use of insulin ([facility]) 02/18/2021 Current Outpatient Medications Medication Sig Dispense Refill predniSONE (DELTASONE) 20 mg tablet Take 2 tablets by mouth once daily for 5 days. 10 tablet 0 diphenhydrAMINE (BENADRYL) 25 mg capsule Take 1 capsule by mouth daily at bedtime. rosuvastatin (CRESTOR) 10 mg tablet Take 1 tablet by mouth daily at bedtime. meclizine (ANTIVERT) 12.5 mg tab Take 1 tablet by mouth every 6 hours as needed (dizziness). 12 tablet 0 fluticasone (FLONASE) 50 mcg/actuation nasal spray Use 2 Sprays in each nostril once daily. Rinse mouth after use. 10 mL 0 cetirizine (ZYRTEC) 10 mg tablet Take 1 tablet by mouth once daily. 30 tablet 0 omeprazole (PRILOSEC) 20 mg capsule Take 1 capsule by mouth daily before breakfast. 1/2 hr before meal. 30 capsule aspirin, enteric coated (ASPIRIN, ENTERIC COATED) 81 mg EC tablet Take 1 tablet by mouth once daily. omega-3 fatty acids 1,000 mg cap Take 2 capsules by mouth once daily. Current Facility-Administered Medications Medication Dose Route Frequency Provider Last Rate Last Admin perflutren lipid microspheres 1.3 mL in NaCl (PF) 0.9% 10 mL injection (DEFINITY) INTRAVENOUS DIRECTED PRN Kae Ferro APRN.PARTS DATA WRITER sodium chloride 0.9 % (flush) 10 mL (BD POSIFLUSH) 10 mL INTRAVENOUS DIRECTED PRN Kae Ferro APRN.PARTS DATA WRITER PAST SURGICAL HISTORY Procedure Laterality Date COLONOSCOPY FLX DX W/COLLJ SPEC WHEN PFRMD 08/14/14 Colonoscopy, recheck 5 yrs COLONOSCOPY FLX DX W/COLLJ SPEC WHEN PFRMD 02/13/2020 Repeat in 5 years HERNIA REPAIR HX LAPAROSCOPY SURG RPR INITIAL INGUINAL HERNIA Bilateral 05/13/2017 medium 3D max - bilat PAST SURGICAL HISTORY OF 04/2017 Rt and Lt inguinal hernia repair. REPAIR INGUINAL HERNIA Bilateral 08/1963 TONSILLECTOMY HX FAMILY HISTORY Problem Relation Age of Onset Diabetes Father Coronary Artery Disease Father 60's Lipids Father Coronary Artery Disease Brother late 30's Diabetes Mother Lipids Mother Stroke Mother Hypertension Brother Lipids Brother Lipids Sister Seizures Brother Obesity Brother Thyroid Brother Social History Tobacco Use Smoking status: Light Tobacco Smoker Packs/day: 1.00 Years: 22.00 Pack years: 22.00 Types: Cigarettes Last attempt to quit: 04/03/2017 Years since quittin.7 Smokeless tobacco: Never Used Vaping Use Vaping Use: Never used Substance Use Topics Alcohol use: Yes Alcohol/week: 0.0 standard drinks Comment: very rarely Drug use: No Objective BP 122/72 Pulse 78 Temp 37.1 C (98.7 F) Resp 16 Wt 78.9 kg (174 lb) SpO2 96% BMI 27.31 kg/m Physical Exam Vitals reviewed. Constitutional: Appearance: Normal appearance. HENT: Head: Normocephalic and atraumatic. Cardiovascular: Rate and Rhythm: Normal rate and regular rhythm. Heart sounds: Normal heart sounds. Pulmonary: Effort: Pulmonary effort is normal. Breath sounds: Normal breath sounds. Musculoskeletal: Comments: Exam of the left hand reveals minimal tenderness palpation to the carpal metacarpal joint of the first digit on the left hand. No swelling. Patient has limited range of motion of the thumb. No tenderness of the MCP or interphalangeal joint. Skin: General: Skin is warm and dry. Neurological: Mental Status: He is alert. Assessment and Plan ASSESSMENT/PLAN: 1. Encounter for screening for COVID-19 - ICD9: V73.89, ICD10: Z11.52 (primary diagnosis) COVID testing pending. - ASYMPTOMATIC ELECTIVE COVID-19 2. Left hand pain - ICD9: 729.5, ICD10: M79.642 X-rays show minimal arthritis of the interphalangeal joints but no significant arthritis at the [facility]. Could be more tendinitis or overuse injury. Given prednisone. Follow-up with PCP or orthopedics. Patient agreeable. - XR HAND GENERAL 3V PA/LAT/OBL LEFT Bree Peterson PA-C documented in this encounter [facility] 08-12-2021 History of Present illness Narrative Episode Visit Count: 7 Therapist That Will Oversee The Plan Of Care: Pako Payne Start of Care Date: 05/07/21 Onset Date: 05/07/19 Patient Identified by Name and Date of : Yes [facility] PHYSICAL THERAPY DISCONTINUANCE OF CARE PLAN OF CARE UPDATE: Assessment: Alber Lenz is discontinued from Physical Therapy services due to Patient/Client declining further intervention.. Patient was seen for 7 visits from Start of Care Date: 05/07/21 to 08/12/2021 and treatment included: Therapeutic exercise and Manual therapy. Pt comfortable with following current HEP independently. Goals updated 08/12/2021 Goals for Episode of Care: created on 05/07/21 through 07/16/21 Independent in home exercises. - Met so far Patient will decrease pain rating by 2 points to meet minimal clinical important difference for numeric pain rating scale. - Met for the back Pt will report improvement in symptoms by 80% or greater in 8 weeks or less for improved QOL - Progressing, will continue Pt will demonstrate good for with Bird-dog exercise for 5 reps demonstrating improved lumbo-pelvic motor control - Progressing, will continue Patient Goals: Pt wants the pain to go away Pt will report improvement in neck symptoms by 70% or greater in 8 weeks for improved tolerance to work duties and improved sleep quality - Not met SUBJECTIVE: Patient Reason for Visit: Pt sttes he needs to make this appointment quick because he needs to be somewhere. Pt states he has a clicking in the neck that is there which bothers him. Pt reports the clicking isnt necessarily painful but it is annoying. The neck can feel stiff. Pt would like to be discharged from therapy at this time as he is good with continuing with the exercises and pt feels at this point his symptoks have not gotten better or worse overall. Pain: Pain Pain Level: 0 Pain Location: Neck PROMIS Scales T-scores: mean of general population = 50. 5 points is clinically meaningfully difference Percentiles provide an indication of how the patient's score ranks in relation to the general population. Higher percentile rankings indicate better function/quality of life. 50th percentile is the average of the general population and indicates half of respondents had a worse score. T-scores: mean of general population = 50. 5 points is clinically meaningfully difference Percentiles provide an indication of how the patient's score ranks in relation to the general population. Higher percentile rankings indicate better function/quality of life. 50th percentile is the average of the general population and indicates half of respondents had a worse score. OBJECTIVE MEASURES WITH LEVEL OF FUNCTION: Lumbar Spine AROM Lumbar Flexion: Normal Lumbar Extension: Normal Lumbar R Side-Bend: Normal Lumbar L Side-Bend: Normal Lumbar R Rotation: Minimal limitation Lumbar L Rotation: Normal LE AROM Tested?: Yes Cervical Spine ROM Cervical ROM : Limitation AROM Cervical Flexion AROM: Normal Cervical Extension AROM: Normal (pressure and stiff) Cervical Side-Bend Right AROM: Normal Cervical Side-Bend Left AROM: Normal Cervical Rotation Right AROM: Normal Cervical Rotation Left AROM: Normal UE AROM R UE AROM: WNL L UE AROM: WNL LE AROM R LE AROM: WNL L LE AROM: WNL UE and Cervical Strength R UE Strength: Grossly 5/5 L UE Strength: Grossly 5/5 LE Strength R LE Strength: Grossly 5/5 L LE Strength: Grossly 5/5 TREATMENT: Therapeutic Exercise: 1: All objective measures taken this session 2: Discussed HEP and which exercises to continue. Discussed the continued use of cervical traction, massage and heat over cervical muscles. Skilled Intervention: Patient was educated in proper exercise technique and purpose for exercises. Correct performance of therapeutic exercises was facilitated with verbal and visual cuing. Billing Therapeutic Exercise Treatment Minutes: 28 Total Treatment Time Minutes (timed and untimed codes) : 28 Pako Payne PT documented in this encounter [facility] 04-02-2021 History of Present illness Narrative Radiology Service Progress Note PATIENT NAME: Alber Lenz DATE OF SERVICE: April 02, 2021 TIME: 4:14 PM PATIENT IDENTITY VERIFICATION COMPLETED USING TWO (2) IDENTIFIERS: Name and Date of confirmed by patient verbally. FALL SCREENING: Has the patient had 2 falls in the last year or 1 fall with injury or currently using an Ambulatory Assistive Device (Walker, Cane, Wheelchair, Crutches, etc.)? No PATIENT GENDER DATA: Male PATIENT RELEVANT IMPLANT DATA REVIEWED: Not Applicable RADIOLOGY DEPARTMENT: General X-ray: Exam(s) Completed: Spine X-Ray(s): Cervical AP / LAT / OBL PERIPHERAL IV DATA: Not applicable SIGNED BY: RT Micheline(R) April 02, 2021 4:14 PM documented in this encounter [facility] 06-06-2016 History of Past i llness Narrative Problem Noted Date Resolved Date Well adult exam 06/06/2016 05/01/2017 Overview: Last done: 02/06/2017 Family history of [place] ([place]) 09/201505/01/2017 Overview: Last stress 2012: Repeat every 5 yrs. Dad and Brother Restless legs syndrome (RLS) 05/28/2007 Unspecified pruritic disorder 05/28/2007 documented as of this encounter (statuses as of 08/12/2021) [facility] History of Past illness Narrative* Problem Noted Date Resolved Date Well adult exam 06/06/2016 05/01/2017 Overview: Last done: 02/06/2017 Family history of [place] ([place]) 09/201505/01/2017 Overview: Last stress 2013: Repeat every 5 yrs. Dad and Brother Restless legs syndrome (RLS) 05/28/2007 Unspecified pruritic disorder 05/28/2007 documented as of this encounter (statuses as of 12/18/2021) [facility] History of Past illness Narrative* Problem Noted Date Resolved Date Well adult exam 06/06/2016 05/01/2017 Overview: Last done: 02/06/2017 Family history of [place]) 09/201505/01/2017 Overview: Last stress 2012: Repeat every 5 yrs. Dad and Brother Restless legs syndrome (RLS) 05/28/2007 Unspecified pruritic disorder 05/28/2007 documented as of this encounter (statuses as of 12/24/2021) [facility] History of Past illness Narrative* Problem Noted Date Resolved Date Well adult exam 06/06/2016 05/01/2017 Overview: Last done: 02/06/2017 [place] history of [place] 09/201505/01/2017 Overview: Last stress 2012: Repeat every 5 yrs. Dad and Brother Restless legs syndrome (RLS) 05/28/2007 Unspecified pruritic disorder 05/28/2007 documented as of this encounter (statuses as of 12/31/2021) [facility] History of Past illness Narrative* Problem Noted Date Resolved Date Family history of [place] ([place]) 09/201505/01/2017 Overview: Last stress 2012: Repeat every 5 yrs. Dad and Brother Restless legs syndrome (RLS) 05/28/2007 Unspecified pruritic disorder 05/28/2007 documented as of this encounter (statuses as of 07/15/2022) [facility] History of Past illness Narrative* Problem Noted Date Diagnosed Date Resolved Date Family history of [place] ([place]) 6 05/01/2017 Overview: Last stress 2012: Repeat every 5 yrs. Dad and Brother Restless legs syndrome (RLS) 05/28/2007 05/01/2017 Unspecified pruritic disorder 05/28/2007 05/01/2017 documented as of this encounter (statuses as of 04/22/2023) [facility] History of Past illness Narrative* Problem Noted Date Diagnosed Date Resolved Date Family history of [place] ([place]) 6 05/01/2017 Overview: Last stress 2012: Repeat every 5 yrs. Dad and Brother Restless legs syndrome (RLS) 05/28/2007 05/01/2017 Unspecified pruritic disorder 05/28/2007 05/01/2017 documented as of this encounter (statuses as of 07/10/2023) [facility] History of Past illness Narrative* Problem Noted Date Diagnosed Date Resolved Date Family history of [place] ([place]) 6 05/01/2017 Overview: Last stress 2012: Repeat every 5 yrs. Dad and Brother Restless legs syndrome (RLS) 05/28/2007 05/01/2017 Unspecified pruritic disorder 05/28/2007 05/01/2017 documented as of this encounter (statuses as of 08/06/2023) [facility] History of Past illness Narrative* Problem Noted Date Diagnosed Date Resolved Date Family history of [place]) 05/01/2017 Overview: Last stress 2012: Repeat every 5 yrs. Dad and Brother Restless legs syndrome (RLS) 05/28/2007 05/01/2017 Unspecified pruritic disorder 05/28/2007 05/01/2017 documented as of this encounter (statuses as of 08/06/2023) [facility] note* Diagnosis Neck pain- Primary Cervicalgia [facility] Diagnosis Encounter for screening for COVID-19- Primary Left hand pain Pain in limb [facility]* Diagnosis Type 2 diabetes mellitus without complication, without long-term current use of insulin (HCC)- Primary Thrush Candidiasis of mouth Mixed hyperlipidemia Bee sting, undetermined intent, sequela Hypertriglyceridemia Pure hyperglyceridemia Subclinical hypothyroidism Other specified acquired hypothyroidism [facility]* Diagnosis Smoker- Primary Tobacco use disorder Encounter for screening for lung cancer [facility] Diagnosis Hyperlipidemia, mixed- Primary Mixed hyperlipidemia Subclinical hypothyroidism Other specified acquired hypothyroidism Type 2 diabetes mellitus without complication, without long-term current use of insulin (HCC) Screening for prostate cancer Special screening for malignant neoplasm of prostate [facility] Diagnosis Lower respiratory tract infection- Primary Other diseases of respiratory system, not elsewhere classified documented in this encounter [facility] note* Diagnosis Well adult exam- Primary Routine general medical examination at a health care facility Hyperlipidemia, mixed Mixed hyperlipidemia Type 2 diabetes mellitus without complication, without long-term current use of insulin (HCC) Subclinical hypothyroidism Other specified acquired hypothyroidism GERD without esophagitis Esophageal reflux Smoker Tobacco use disorder Foot callus Corns and callosities Need for vaccination Need for prophylactic vaccination and inoculation against unspecified single disease [facility]* Diagnosis Need for vaccination- Primary Need for prophylactic vaccination and inoculation against unspecified single disease [facility]* Diagnosis Left hand pain Pain in limb [facility] Diagnosis Neck pain Cervicalgia [facility]* Diagnosis Bacterial sinusitis- Primary Unspecified sinusitis (chronic) [facility] Diagnosis Bacterial sinusitis- Primary Unspecified sinusitis (chronic) Subacute cough Cough Subacute cough Cough [facility]* Diagnosis Subacute cough Cough [facility] noteNo assessment information availableWSouthern [facility] Work Phone: Reason for referral (narrative)* Diagnostic Procedure Only (Routine) - Closed Specialty Diagnoses / Procedures Referred By Contac t Referred To Contact XR IMAGING Diagnoses Neck pain Procedures XR CERV OTHER 4V AP/LAT/OBL X-RAY NECK MINIMUM 4 VIEWS Kae Ferro APRN.CNP [address] [place] [address] [place] [address] Referral ID Status Reason Start Date Expiration Date V isits Requested Visits Authorized Closed Auto-Generate d Referral 04/02/2021 04/02/2022 99 99 [facility])No reason for referral information availableWSouthern [facility] Work Phone: Reason for visit Narrative* Diagnostic Procedure Only (Routine) - Closed Specialty Diagnoses / Procedures Referred By Contac t Referred To Contact XR IMAGING Diagnoses Neck pain Procedures XR CERV OTHER 4V AP/LAT/OBL X-RAY NECK MINIMUM 4 VIEWS Kae Ferro APRN.PARTS DATA WRITER [address] [place] [address] [place] [address] Referral ID Status Reason Start Date Expiration Date V isits Requested Visits Authorized Closed Auto-Generate d Referral 04/02/2021 04/02/2022 99 99 [facility] Summary Purpose Family History No Family History Records Found Relationship Condition Age at Onset Recorded Date/T harriett brother Diabetes mellitus Unknown Myocardial infarction Unknown Obesity Unknown Seizures Unknown father Diabetes mellitus Unknown Coronary artery disease Unknown mother Cerebrovascular accident (CVA) Unknown Diabetes mellitus Unknown Advance Directives No Advanced Directives Records FoundDocuments on File Type Date Recorded 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 Advance Directive(s) 02/13/2020 10:59 AM Advance Directive(s) 05/13/2017 5:54 AM Documents on File Type Date Recorded 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 Advance Directive(s) 02/13/2020 10:59 AM Advance Directive(s) 05/13/2017 5:54 AM Reason for Referral Specialty Diagnoses / Procedures Referred By Contac t Referred To Contact XR IMAGING Diagnoses Left hand pain Procedures XR HAND GENERAL 3V PA/LAT/OBL LEFT RADEX HAND MINIMUM 3 VIEWS Bree Peterson PA-C [address] [place] [address] Xr Imaging Referral ID Status Reason Start Date Expiration Date Visits Re quested Visits Authorized [id number] Closed 12/18/2021 05/17/2022 1 1 Specialty Diagnoses / Procedures Referred By Joseph t Referred To Contact XR IMAGING Diagnoses Left hand pain Procedures XR HAND GENERAL 3V PA/LAT/OBL LEFT RADEX HAND MINIMUM 3 VIEWS Bree Peterson, PA-C [address] [place] [address] [place] [id number] Health Concerns Infection Onset Date Last Indicated Resolved Time COVID-19 Rule-Out 12/18/2021 12/18/2021 Chief Complaint and Reason for Visit Chief Complaint Admit Date URINE ONLY August 04, 2024 3:2 8pm Additional Source Comments (unrecognized sect ion and content) No Status Records FoundNo Status Records FoundNo Status Records FoundNo Status Records Found INFORMATION SOURCE (unrecogn ized section and content) DATE CREATED AUTHOR 11/10/2017 [facility] DATE CREATED AUTHOR AUTHOR'S ORGANIZ ATION [facility]29/20[facility] DATE CREATED AUTHOR AUTHOR'S ORGANIZ ATION 11/06/2024 [facility] DATE CREATED AUTHOR AUTHOR'S ORGANIZ ATION 02/21/2025 [facility] Source Comments (unrecognize d section and content) In the event this informatio n is protected by the Federal Confidentiality of Alcohol and Drug Abuse Patient Records regulations: The Federal rules restrict any use of the information to criminally investigate or prosecute any alcohol or drug abuse patient.[facility] the event this information is protected by the Federal Confidentiality of Alcohol and Drug Abuse Patient Records regulations: The Federal rules restrict any use of the information to criminally investigate or prosecute any alcohol or drug abuse patient.[facility] the event this information is protected by the Federal Confidentiality of Alcohol and Drug Abuse Patient Records regulations: The Federal rules restrict any use of the information to criminally investigate or prosecute any alcohol or drug abuse patient.[facility] the event this information is protected by the Federal Confidentiality of Alcohol and Drug Abuse Patient Records regulations: The Federal rules restrict any use of the information to criminally investigate or prosecute any alcohol or drug abuse patient.[facility]In the event this information is protected by the Federal Confidentiality of Alcohol and Drug Abuse Patient Records regulations: The Federal rules restrict any use of the information to criminally investigate or prosecute any alcohol or drug abuse patient.[facility] the event this information is protected by the Federal Confidentiality of Alcohol and Drug Abuse Patient Records regulations: The Federal rules restrict any use of the information to criminally investigate or prosecute any alcohol or drug abuse patient.[facility] the event this information is protected by the Federal Confidentiality of Alcohol and Drug Abuse Patient Records regulations: The Federal rules restrict any use of the information to criminally investigate or prosecute any alcohol or drug abuse patient.[facility] the event this information is protected by the Federal Confidentiality of Alcohol and Drug Abuse Patient Records regulations: The Federal rules restrict any use of the information to criminally investigate or prosecute any alcohol or drug abuse patient.[facility]In the event this information is protected by the Federal Confidentiality of Alcohol and Drug Abuse Patient Records regulations: The Federal rules restrict any use of the information to criminally investigate or prosecute any alcohol or drug abuse patient.[facility] the event this information is protected by the Federal Confidentiality of Alcohol and Drug Abuse Patient Records regulations: The Federal rules restrict any use of the information to criminally investigate or prosecute any alcohol or drug abuse patient.[facility] the event this information is protected by the Federal Confidentiality of Alcohol and Drug Abuse Patient Records regulations: The Federal rules restrict any use of the information to criminally investigate or prosecute any alcohol or drug abuse patient.[facility] the event this information is protected by the Federal Confidentiality of Alcohol and Drug Abuse Patient Records regulations: The Federal rules restrict any use of the information to criminally investigate or prosecute any alcohol or drug abuse patient.[facility] the event this information is protected by the Federal Confidentiality of Alcohol and Drug Abuse Patient Records regulations: The Federal rules restrict any use of the information to criminally investigate or prosecute any alcohol or drug abuse patient.[facility]In the event this information is protected by the Federal Confidentiality of Alcohol and Drug Abuse Patient Records regulations: The Federal rules restrict any use of the information to criminally investigate or prosecute any alcohol or drug abuse patient.[facility]In the event this information is protected by the Federal Confidentiality of Alcohol and Drug Abuse Patient Records regulations: The Federal rules restrict any use of the information to criminally investigate or prosecute any alcohol or drug abuse patient.[facility] the event this information is protected by the Federal Confidentiality of Alcohol and Drug Abuse Patient Records regulations: The Federal rules restrict any use of the information to criminally investigate or prosecute any alcohol or drug abuse patient.[facility] the event this information is protected by the Federal Confidentiality of Alcohol and Drug Abuse Patient Records regulations: The Federal rules restrict any use of the information to criminally investigate or prosecute any alcohol or drug abuse patient.[facility]In the event this information is protected by the Federal Confidentiality of Alcohol and Drug Abuse Patient Records regulations: The Federal rules restrict any use of the information to criminally investigate or prosecute any alcohol or drug abuse patient.[facility] Reason for Visit (unrecogniz ed section and content) Reason Comments PT Discharge Specialty Diagnoses / Procedures Referred By Contac t Referred To Contact Physical Therapy / PHYSICAL THERAPY Diagnoses Neck pain Procedures THERAPEUTIC EXERCISES RE, EA 15 MIN. Dwayne Mccullough MD [address] [place] [address] Pako Payne, PT [address] [place] [address] Referral ID Status Reason Start Date Expiration Date V isits Requested Visits Authorized [id number] Authorized 05/18/2021 05/17/2022 20 20 Reason Comments Results for concert Specialty Diagnoses / Procedures Referred By Contac t Referred To Contact Internal Medicine / [facility] Diagnoses wants covid test Procedures EST SAME DAY MD Nicholas Souza Cara R, PA-C [address] [place] [address] Referral ID Status Reason Start Date Expiration Date Visits Re quested Visits Authorized [id number] Closed 12/18/2021 05/17/2022 1 1 Reason Comments Patient Question Reason Comments Recheck 6 month follow up Specialty Diagnoses / Procedures Referred By Contac t Referred To Contact Family Practice / FAMILY MEDICINE Diagnoses Follow-up examination 6 month follow up Procedures OFFICE/OUTPATIENT ESTABLISHED MOD MDM 30-39 MIN 4C EST MD Kasie Souza Christy, APRN.[employer]S DATA WRITER [address] [place] [address] Referral ID Status Reason Start Date Expiration Date Visits Re quested Visits Authorized [id number] Closed 12/30/2021 05/17/2022 1 1 Reason Comments Orders Reason Comments Cough Nasal congestion, ch est congestion, green mucous x 7 days Reason Comments Physical Reason Comments Nurse Visit shingrix dose 2 Reason Comments Coding Questions Specialty Diagnoses / Procedures Referred By Contac t Referred To Contact XR IMAGING Diagnoses Left hand pain Procedures XR HAND GENERAL 3V PA/LAT/OBL LEFT RADEX HAND MINIMUM 3 VIEWS Bree Peterson PA-C [address] [phone] [place] [address] Referral ID Status Reason Start Date Expiration Date Visits Re quested Visits Authorized [id number] Closed 12/18/2021 05/17/2022 1 1 Reason Comments Cough Heaviness in chest, body aches, headache. [place] green phlegm, sinus head congestion and pain. X 17 days Reason Comments Sinus Problem sinus pressure, drai nage, productive green mucus with cough x 3 weeks, given doxycycline 03/08 Specialty Diagnoses / Procedures Referred By Contac t Referred To Contact Emergency Medicine / [facility] Diagnoses Bacterial sinusitis Coughing up green mucus, sinus congestion, body aches X 3 weeks : patient was recently seen with congestion persisting Procedures OFFICE/OUTPATIENT ESTABLISHED MOD MDM 30 MIN EST SAME DAY Dwayne Mccullough MD [address] [phone] Caitlin Sierra PA [address] [phone] Referral ID Status Reason Start Date Expiration Date Visits Re quested Visits Authorized [id number] Closed 03/14/2024 05/17/2024 1 1 Specialty Diagnoses / Procedures Referred By Contac t Referred To Contact Radiology / [facility] Diagnoses Bacterial sinusitis Xr rm 6 Procedures RADIOLOGIC EXAM CHEST 2 VIEWS XR CHEST Caitlin Sierra PA [address] [place] [address] [facility] [address] [place] [address] Referral ID Status Reason Start Date Expiration Date Visits Re quested Visits Authorized [id number] Closed 03/14/2024 05/17/2024 1 1 Reason Onset Date Comments Diabetes 10/12/2024 Care Teams (unrecognized sec tion and content) Health And Social Care Teacher Relationship Specialty Start Date End Date Dwayne Mccullough MD [address] [place] [address] PCP - General Family Practice 05/22/15 Health And Social Care Teacher Relationship Specialty Start Date End Date Dwayne Mccullough MD [address] [place] [address] PCP - General Family Practice 05/22/15 Health And Social Care Teacher Relationship Specialty Start Date End Date Dwayne Mccullough MD [address] [place] [address] PCP - General Family Practice 05/22/15 Health And Social Care Teacher Relationship Specialty Start Date End Date Dwayne Mccullough MD [address] [place] [address] PCP - General Family Practice 05/22/15 Health And Social Care Teacher Relationship Specialty Start Date End Date Dwayne Mccullough MD [address] [place] [address] PCP - General Family Medicine 05/22/15 Health And Social Care Teacher Relationship Specialty Start Date End Date Dwayne Mccullough MD [address] [place] [address] PCP - General Family Medicine 05/22/15 Health And Social Care Teacher Relationship Specialty Start Date End Date Dwayne Mccullough MD [address] [place] [address] PCP - General Family Medicine 05/22/15 Health And Social Care Teacher Relationship Specialty Start Date End Date Dwayne Mccullough MD [address] [place] [address] PCP - General Family Medicine 05/22/15 Health And Social Care Teacher Relationship Specialty Start Date End Date Dwayne Mccullough MD [address] [place] [address] PCP - General Family Medicine 05/22/15 Health And Social Care Teacher Relationship Specialty Start Date End Date Dwayne Mccullough MD [address] [place] [address] PCP - General Family Medicine 05/22/15 Health And Social Care Teacher Relationship Specialty Start Date End Date Dwayne Mccullough MD [address] [place] [address] PCP - General Family Medicine 05/22/15 Health And Social Care Teacher Relationship Specialty Start Date End Date Dwayne Mccullough MD [address] [place] [address] PCP - General Family Medicine 05/22/15 Health And Social Care Teacher Relationship Specialty Start Date End Date Dwayne Mccullough MD [address] [place] [address] PCP - General Family Medicine 05/22/15 Health And Social Care Teacher Relationship Specialty Start Date End Date Dwayne Mccullough MD [address] [place] [address] PCP - General Family Medicine 05/22/15 Health And Social Care Teacher Relationship Specialty Start Date End Date Dwayne Mccullough MD [address] [place] [address] PCP - General Family Medicine 1/5/16 Team Status: Active Member Role Status Dates Dr. Bairon Knapp MD Primary Care Provider Active Team Status: Inactive Member Role Status Dates Dr. Bairon Knapp MD Primary Care Provider Active Start: August 03, 2024 End: August 03, 2024 Dr. Bairon Knapp MD Attending Provider Active Start: August 03, 2024 End: August 03, 2024 Team Status: Active Member Role Status Dates Dr. Bairon Knapp MD Primary Care Provider Active Start: August 04, 2024 Dr. Bairon Knapp MD Attending Provider Active Start: August 04, 2024 Dr. Bairon Knapp MD Referring Provider Active Start: August 04, 2024 Team Status: Inactive Member Role Status Dates Dr. Bairon Knapp MD Primary Care Provider Active Start: August 04, 2024 End: August 04, 2024 Dr. Bairon Knapp MD Attending Provider Active Start: August 04, 2024 End: August 04, 2024 Dr. Bairon Knapp MD Referring Provider Active Start: August 04, 2024 End: August 04, 2024 Health And Social Care Teacher Relationship Specialty Start Date End Date Dwayne Mccullough MD [address] [place] [id number] PCP - General Family Medicine 08/22/24 Ximena Kaba PA-C [address] [place] [id number] Plasma Cutting Machine Operator Family [facility] 04/23/24 Health And Social Care Teacher Relationship Specialty Start Date End Date Dwayne Mccullough MD [address] [place] [id number] PCP - General Family Medicine 08/22/24 Ximena Kaba PA-C [facility] [place], [place] [address] Plasma Cutting Machine Operator Family [facility] 04/23/24 10/16/24 Kasey Blackwell APRN.CNP [facility] [place], [place] [id number] Plasma Cutting Machine Operator Family [facility] 10/17/24 Ximena Kaba PA-C [address] [facility] [place] [address] [facility]24 Team Status: Active Member Role/Relationship Status Dates Dr. Bairon Knapp MD Primary care physician Active Team Status: Inactive Member Role/Relationship Status Dates Dr. Bairon Knapp MD Primary care physician Active Start: February 07, 2025 End: February 07, 2025 Dr. Bairon Knapp MD Attending physician Active Start: February 07, 2025 End: February 07, 2025 Goals (unrecognized section and content) Goals may be documented in a n alternate sectionGoals may be documented in an alternate sectionGoals may be documented in an alternate section FOR RECORDS PERTAINING TO PATIENTS WHO ARE OR HAVE BEEN ENROLLED IN A CHEMICAL DEPENDENCY/SUBSTANCEABUSE PROGRAM, SOME INFORMATION MAY BE OMITTED. This clinical summary was aggregated from multiple sources. Caution should be exercised in using it in the provision of clinical care. This summary normalizes information from multiple sources, and as a consequence, information in this document may materially change the coding, format and clinical context of patient data. In addition, data may be omitted in some cases. CLINICAL DECISIONS SHOULD BE BASED ON THE PRIMARY CLINICAL RECORDS. [facility]. provides no warranty or guarantee of the accuracy or completeness of information in this document.
[2025-04-28 08:45] LABS: Free T3 3.7 pg/mL (2.18-3.98)
== END | disposition home or self-care (01) ==
LOC: LAB 07:19
PROVIDERS: PCP Family Medicine Geriatric Medicine; Referring Provider Chiropractor; Visit Provider Chiropractor
DX: E03.9 Hypothyroidism, unspecified (principal)
CPT/HCPCS: 36415; 84439; 84443; 84481